=== PATIENT | female | born 1965 | race Caucasian/White ===

== ENCOUNTER 2020-03-14 04:42 | Emergency (ER) | payer MEDICARE, MEDICAID, SELFPAY ==
[2020-03-14 04:55] VITALS: BP 117/61; PULSE 75; RESP 18; TEMP 36.6; O2SAT 97
--- NOTE | 2020-03-14 05:04 | ED.SKABFB ---
HPI - Skin/Abscess/Foreign Bdy General Chief complaint: Skin/Abscess/Foreign Body Stated complaint: RASH Source: patient Mode of arrival: ambulatory Limitations: no limitations History of Present Illness HPI narrative: This is a 54-year-old female who presents with generalized rash with itching that started few hours ago has been taking new prescription antibiotic Bactrim for abscess. Symptoms started with a rash and itching there is no shortness of breath, no fever chills no nausea vomiting or abdominal pain. Patient has tried azyu-kgo-tcdeaji creams with minimal relief. MD complaint: rash Onset (ago): hour(s) Location: generalized Severity: moderate Quality: pruritic Pain Consistency: constant Relieving factors: none Exacerbating factors: none Context: new medication Associated symptoms: denies other symptoms Treatments prior to arrival: OTC topical medication Related Data Home Medications Medication Instructions Recorded Confirmed albuterol sulfate 2 puff INHALATION PRN PRN 03/14/20 03/14/20 amlodipine 5 mg PO DAILY 03/14/20 03/14/20 [id number]-eusp 1 tablet PO PRN PRN 03/14/20 03/14/20 escitalopram oxalate 20 mg PO DAILY 03/14/20 03/14/20 lisinopril 40 mg PO DAILY 03/14/20 03/14/20 Allergies Allergy/AdvReac Type Severity Reaction Status Date / Time amoxicillin Allergy Unknown Unknown Verified 03/14/20 04:54 tetracycline Allergy Unknown Unknown Verified 03/14/20 04:54 sulfamethoxazole Allergy Rash Verified 03/14/20 04:53 [From Bactrim] trimethoprim [From Bactrim] Allergy Rash Verified 03/14/20 04:53 Review of Systems Review of Systems: All systems reviewed & are unremarkable except as noted in HPI and below PMFSH Past Medical History Medical History Depression Exam Const: General: no acute distress and alert Orientation/consciousness: patient oriented x3 HENMT: Head: normal to inspection Eyes: Conjunctivae: conjunctivae normal Pupils: Equal, round and reactive pupils present EOM: EOMs intact bilaterally Neck: Neck: normal visual inspection, no lymphadenopathy and no meningeal signs Chest: Chest palpation & inspection: normal inspection of the chest Resp: Effort & Inspection: normal respiratory effort Auscultation: clear to auscultation bilaterally Cardio: Rate: regular rate Rhythm: regular rhythm : General: Yes no CVA tenderness Back/Spine/Pelvis: Back: no CVA tenderness Skin: Other: generalized pruritic rash Neuro: General: patient oriented x3 and moves all extremities Extrem: General: normal to inspection Psych: Mental Status: mental status grossly normal Thought content: Yes Normal thought content present Course Course Emergency Course: patient given IM Depo-Medrol and p.o. Benadryl with some moderate relief of her itching. Vital Signs Vital signs: Vital Signs Temperature 36.6 C 03/14/20 04:55 Pulse Rate 75 03/14/20 04:55 Respiratory Rate 18 03/14/20 04:55 Blood Pressure 117/61 03/14/20 04:55 Pulse Oximetry 97 03/14/20 04:55 Temperature 36.6 C 03/14/20 04:55 Pulse Rate 75 03/14/20 04:55 Respiratory Rate 18 03/14/20 04:55 Blood Pressure 117/61 03/14/20 04:55 Pulse Oximetry 97 03/14/20 04:55 Critical Care Time Critical Care Time Critical Care Time: No Discharge Plan Discharge Clinical Impression: Allergic reaction to drug Patient Disposition: Home, Self-Care Condition: Stable Instructions: Antibiotic Form, Antibiotic Medication Allergy (ED) Additional Instructions: advised patient to discontinue Bactrim, take Benadryl [id number], and take medicine as prescribed. Follow-up with primary care physician if symptoms persist or worsen. Inform primary care physician of new allergy to Bactrim. Prescriptions: New methylprednisolone [Medrol ([place])] 4 mg tablets,dose pack See Rx Instructions .ROUTE .COMPLEX Qty: 21 RF: 0 famot
[2020-03-14] MEDS: diphenhydrAMINE HCl CAP 25 MG CAPSULE PO (05:08)
[2020-03-14] MEDS: methylPREDNISolone ACETATE 40 MG/ML VIAL 80 MG IM (05:10)
[2020-03-14 05:13] VITALS: BP 128/75; PULSE 80; RESP 18; TEMP 36.6; O2SAT 97
== END 2020-03-14 05:18 | disposition home or self-care (01) ==
PROVIDERS: Emergency Provider Emergency Medicine; PCP Physician Assistant
DX: R21 Rash and other nonspecific skin eruption (principal); T50.905A Adverse effect of unspecified drugs, medicaments and biological substances, initial encounter
CPT/HCPCS: 96372; 99283; A9270; J1030

== ENCOUNTER 2022-02-23 10:03 | Outpatient (CLI) | payer MEDICARE, MEDICAID, SELFPAY ==
[2022-02-23 10:32] LABS: Hematocrit 39.9 % (35.0-49.0); Hemoglobin 12.5 g/dL (12.0-15.0); Mean Corpuscular HGB Conc 31.3 g/dL (32.0-36.0); Mean Corpuscular Hemoglobin 28.1 pg (27.0-31.0); Mean Corpuscular Volume 89.7 fL (78.0-102.0); Mean Platelet Volume 9.4 fl (9.2-11.8); Platelet Count Result 259 K/mm3 (150-420); Red Blood Count 4.45 M/mm3 (4.20-5.40); Red Cell Distribution Width 13.3 % (11.6-14.4); White Blood Count 6.6 K/mm3 (4.8-10.8)
[2022-02-23 10:50] LABS: Hemoglobin A1C 7.2 % (<5.7)
[2022-02-23 10:51] LABS: Alanine Aminotransferase 49 U/L (14-59); Albumin Level 3.2 g/dL (3.4-5.0); Alkaline Phosphatase 233 U/L (46-116); Anion Gap 8 mmol/L (8-16); Aspartate Amino Transferase 82 U/L (15-37); Bilirubin,Total 0.6 mg/dL (0.00-1.00); Blood Urea Nitrogen 19 mg/dL (7-18); Calcium 8.6 mg/dL (8.5-10.1); Carbon Dioxide 29 mmol/L (21-32); Chloride 103 mmol/L (98-108); Cholesterol 212 mg/dL (0-200); Estimated Glomerular Filt Rate > 60; Glucose 146 mg/dL (70-99); HDL Direct 74 mg/dL (40-60); LDL Cholesterol Calculated 123 mg/dL (<130); Osmolality Calculated 295 mOsm/kg (285-295); Potassium 3.6 mmol/L (3.5-5.1); Sodium 140 mmol/L (136-145); Total Protein 6.9 g/dL (6.4-8.2); Triglycerides 77 mg/dL (0-150)
== END 2022-02-23 10:04 | disposition home or self-care (01) ==
LOC: CHSLAB 10:14
PROVIDERS: PCP Physician Assistant; Visit Provider Physician Assistant
DX: E11.9 Type 2 diabetes mellitus without complications (principal); I10 Essential (primary) hypertension; Z00.00 Encounter for general adult medical examination without abnormal findings
CPT/HCPCS: 36415; 80053; 80061; 83036; 85027

== ENCOUNTER 2022-04-05 16:25 | Emergency (ER) | payer MEDICARE, MEDICAID, SELFPAY ==
--- NOTE | ~2022-04-05 | XR_ITS ---
EXAMINATION: XR chest 2V DATE: 04/05/2022 17:46 INDICATION: Cough and wheeze TECHNIQUE: frontal and lateral views of the chest were obtained. COMPARISON: None FINDINGS: The lungs are clear with no focal airspace opacities, pulmonary edema, pleural effusion or pneumothor ax. The cardiomediastinal silhouette is normal. Mild anterior wedging at T11 and T12. IMPRESSION: 1. No acute cardiopulmonary disease. Reviewed, dictated and finalized at location A.
[2022-04-05 16:25] VITALS: BP 169/78; PULSE 89; RESP 24; TEMP 37.2; O2SAT 96
[2022-04-05 16:35] VITALS: BP 169/78; PULSE 89; RESP 22; TEMP 37.2; O2SAT 97
[2022-04-05 17:05] VITALS: PULSE 85; RESP 16; O2SAT 95
[2022-04-05] MEDS: ALBUTEROL SULFATE NEB 2.5 MG/3 ML INH INHALATION (17:05)
--- NOTE | 2022-04-05 17:05 | ED.GENADULT ---
HPI - General Adult General Chief complaint: Upper Respiratory Infection Stated complaint: cold chills, body aches Time Seen by Provider: 04/05/22 16:40 Source: patient Mode of arrival: ambulatory Limitations: no limitations History of Present Illness HPI narrative: patient is a 56-year-old obese white female asthmatic complain of cough associated with chills and then feeling warm, and and fatigue. User albuterol inhaler twice today. She is vaccinated for COVID is never had COVID complains of mild shortness of breath been constant. denies any chest pain. She has had runny nose nasal congestion in her ears feel full today. Pain Consistency: constant Related Data Home Medications Medication Instructions Recorded Confirmed albuterol sulfate 90 mcg/actuation 2 puff inhalation PRN PRN 03/14/20 04/05/22 aerosol inhaler Shortness Of Breath Or Wheezing amlodipine 5 mg tablet 5 mg PO DAILY 03/14/20 04/05/22 [id number]-wtmcneaonfcym-rybpwsst 1 tablet PO PRN PRN Headache 03/14/20 04/05/22 50 mg-325 mg-40 mg tablet escitalopram oxalate 20 mg tablet 20 mg PO DAILY 03/14/20 04/05/22 lisinopril 40 mg tablet 40 mg PO DAILY 03/14/20 04/05/22 Allergies Allergy/AdvReac Type Severity Reaction Status Date / Time amoxicillin Allergy Unknown Unknown Verified 04/05/22 16:44 tetracycline Allergy Unknown Unknown Verified 04/05/22 16:44 sulfamethoxazole Allergy Rash Verified 04/05/22 16:44 [From Bactrim] trimethoprim [From Bactrim] Allergy Rash Verified 04/05/22 16:44 Review of Systems Review of Systems: All systems reviewed & are unremarkable except as noted in HPI and below Constitutional: Constitutional: Reports as per HPI, Reports chills, Reports fatigue, Reports fever(s) and Denies weakness Eyes: Eyes: Reports as per HPI ENT: Reports system reviewed and no additional complaints, except as documented and Reports as per HPI Cardiovascular: Cardiovascular: Reports as per HPI and Reports no additional cardiovascular complaints Respiratory: Respiratory: Reports as per HPI and Reports wheezing Gastrointestinal: Gastrointestinal: Reports as per HPI Genitourinary: Genitourinary: Reports no additional female genitourinary complaints and Reports nocturia ( She has urinary incontinence and wears depends) Musculoskeletal: Musculoskeletal: Reports no additional musculoskeletal complaints, Reports myalgias and Denies arthralgias Integumentary/Breasts: Skin/Breast: Reports erythema Comments: has a right redness and warmth of her right calf which is nontender. Neurologic: Reports system reviewed and no additional complaints, except as documented Psychiatric: Psychiatric: Reports no additional psychiatric complaints [facility] Past Medical History Medical History (Updated 04/05/22 @ 17:14 by Luc Hudson MD) Asthma Depression Surgical History Surgical History (Updated 04/05/22 @ 17:05 by Luc Hudson MD) Gastric bypass status for obesity Exam Narrative: Patient is a morbidly obese white female she appears in no apparent distress head is atraumatic normocephalic eyes conjunctivae are pink sclera nonicteric ears TMs are normal oropharynx is clear with moist mucous membranes neck is supple without lymphadenopathy lungs show bronchial breath sounds with good air exchange heart is regular rate rhythm without murmurs gallops rubs chest wall is nontender of the abdomen morbidly obese soft and nontender no hepatosplenomegaly or masses she is wearing a depends. Extremities no cyanosis clubbing or edema she has area of erythema right calf which is nontender somewhat warm to touch. Neurological she is alert and oriented x4 motor and sensory grossly intact. Course Course Emergency Course: Patient was given albuterol nebulizer treatment. Instructed on proper albuterol inhaler use and was given a spacer with instructions by morgue technician. She is given prednisone 60 mg p.o. chest x-ray was done. COVID screen
[2022-04-05 17:13] LABS: Hematocrit 36.8 % (35.0-49.0); Hemoglobin 11.9 g/dL (12.0-15.0); Mean Corpuscular HGB Conc 32.3 g/dL (32.0-36.0); Mean Corpuscular Hemoglobin 28.5 pg (27.0-31.0); Mean Corpuscular Volume 88.2 fL (78.0-102.0); Mean Platelet Volume 9.5 fl (9.2-11.8); Platelet Count Result 179 K/mm3 (150-420); Red Blood Count 4.17 M/mm3 (4.20-5.40); Red Cell Distribution Width 13.2 % (11.6-14.4); White Blood Count 11.7 K/mm3 (4.8-10.8)
[2022-04-05] MEDS: predniSONE 20 MG TABLET 60 MG PO (17:18)
[2022-04-05 17:20] VITALS: BP 145/68; PULSE 77; PULSE 84; RESP 16; RESP 18; TEMP 37.1; O2SAT 99
[2022-04-05 17:29] LABS: Alanine Aminotransferase 11 U/L (14-59); Alkaline Phosphatase 149 U/L (46-116); Anion Gap 8 mmol/L (8-16); Aspartate Amino Transferase 17 U/L (15-37); Bilirubin,Total 0.8 mg/dL (0.00-1.00); Blood Urea Nitrogen 11 mg/dL (7-18); Calcium 8.4 mg/dL (8.5-10.1); Carbon Dioxide 29 mmol/L (21-32); Chloride 100 mmol/L (98-108); Estimated CRCL calculation 106 ml/min; Estimated Glomerular Filt Rate > 60; Glucose 165 mg/dL (70-99); Osmolality Calculated 287 mOsm/kg (285-295); Potassium 3.2 mmol/L (3.5-5.1); Sodium 137 mmol/L (136-145); Total Protein 6.6 g/dL (6.4-8.2)
[2022-04-05 17:51] LABS: Influenza A QL RT-PCR Negative (Negative); Influenza B QL RT-PCR Negative (Negative); SARS-CoV-2 RNA PCR Negative (Negative)
[2022-04-05 18:12] VITALS: BP 142/78; PULSE 88; RESP 18; TEMP 37.1; O2SAT 98
[2022-04-05 18:16] VITALS: BP 152/69; PULSE 91; RESP 20; TEMP 36.7; O2SAT 96
--- NOTE | 2022-04-11 12:40 | PC.NURSE ---
blood culture x2 reports final of no growth x 5 days
== END 2022-04-05 18:14 | disposition home or self-care (01) ==
PROVIDERS: Emergency Provider Emergency Medicine
DX: J45.901 Unspecified asthma with (acute) exacerbation (principal); Z20.822 Contact with and (suspected) exposure to COVID-19
CPT/HCPCS: 36415; 71046; 80053; 85027; 85380; 87040; 87502; 94640; 99283; C9803; J7512; U0003; U0005

== ENCOUNTER 2022-04-12 08:59 | Outpatient (CLI) | payer MEDICARE, MEDICAID, SELFPAY ==
[2022-04-12 11:01] LABS: Hemoglobin A1C 7.5 % (<5.7)
== END 2022-04-12 09:00 | disposition home or self-care (01) ==
LOC: CHSLAB 09:02
PROVIDERS: PCP Physician Assistant; Visit Provider Physician Assistant
DX: E11.9 Type 2 diabetes mellitus without complications (principal); Z00.00 Encounter for general adult medical examination without abnormal findings
CPT/HCPCS: 36415; 83036

== ENCOUNTER 2022-11-30 08:41 | Outpatient (CLI) | payer MEDICARE, MEDICAID, SELFPAY ==
[2022-11-30 08:58] LABS: Hematocrit 38.5 % (35.0-49.0); Hemoglobin 12.1 g/dL (12.0-15.0); Mean Corpuscular HGB Conc 31.4 g/dL (32.0-36.0); Mean Corpuscular Hemoglobin 29.6 pg (27.0-31.0); Mean Corpuscular Volume 94.1 fL (78.0-102.0); Mean Platelet Volume 9.7 fl (9.2-11.8); Platelet Count Result 274 K/mm3 (150-420); Red Blood Count 4.09 M/mm3 (4.20-5.40); Red Cell Distribution Width 12.4 % (11.6-14.4)
[2022-11-30 09:29] LABS: Alanine Aminotransferase 15 U/L (14-59); Albumin Level 3.4 g/dL (3.4-5.0); Alkaline Phosphatase 145 U/L (46-116); Anion Gap 8 mmol/L (8-16); Aspartate Amino Transferase 17 U/L (15-37); Bilirubin,Total 0.4 mg/dL (0.00-1.00); Blood Urea Nitrogen 41 mg/dL (7-18); Calcium 8.5 mg/dL (8.5-10.1); Carbon Dioxide 25 mmol/L (21-32); Chloride 105 mmol/L (98-108); Cholesterol 206 mg/dL (0-200); Estimated Glomerular Filt Rate 46; Glucose 157 mg/dL (70-99); HDL Direct 62 mg/dL (40-60); LDL Cholesterol Calculated 122 mg/dL (<130); Osmolality Calculated 299 mOsm/kg (285-295); Potassium 3.8 mmol/L (3.5-5.1); Sodium 138 mmol/L (136-145); Total Protein 6.9 g/dL (6.4-8.2); Triglycerides 112 mg/dL (0-150)
== END 2022-11-30 08:42 | disposition home or self-care (01) ==
LOC: CHSLAB 08:43
PROVIDERS: PCP Physician Assistant; Visit Provider Physician Assistant
DX: E11.9 Type 2 diabetes mellitus without complications (principal)
CPT/HCPCS: 36415; 80053; 80061; 85027

== ENCOUNTER 2022-12-22 17:25 | Outpatient (CLI) | payer MEDICARE, MEDICAID, SELFPAY ==
--- NOTE | ~2022-12-22 | XR_ITS ---
XR shoulder LT min 2V 12/22/2022 17:50 Indication: Left shoulder pain Procedure: 4 views left shoulder Comparison: No prior studies for comparison. Findings: No fracture, subluxation or dislocation. No significant soft tissue abnormality. No foreign bodies. Impression: 1: No significant bone or joint abnormality. Reviewed, dictated and finalized at location A. Impression: 1: No significant bone or joint abnormality.
== END 2022-12-22 17:26 | disposition home or self-care (01) ==
PROVIDERS: PCP Physician Assistant; Visit Provider Physician Assistant
DX: M25.512 Pain in left shoulder (principal)
CPT/HCPCS: 73030

== ENCOUNTER 2023-02-13 11:46 | Emergency (ER) | payer MEDICARE, MEDICAID, SELFPAY ==
--- NOTE | ~2023-02-13 | CT_ITS ---
EXAMINATION: CT humerus LT wo con DATE: 02/13/2023 13:31 INDICATION: Left upper arm pain worse with movement. TECHNIQUE: High resolution computed tomography (CT) of the left upper arm was performed without intra venous contrast. Additional sagittal and coronal reconstructions were performed. Automated exposure c ontrol and iterative reconstruction technique were employed. The dose-length product was 965.67 mGy-c m. COMPARISON: Left shoulder radiographs dated 12/22/2022 FINDINGS: Bone alignment is normal. No fracture. Mild osteoarthritis at the left elbow and acromioclavicular pepe ints. Glenohumeral joint space appears normal. No glenohumeral or elbow joint effusions. Portions of the skin and subcutaneous fat along the lateral and posterolateral left upper arm are excluded from t he [id number] due to patient body habitus. The musculature of the left upper arm and visualized fo rearm appears normal. No inflammatory stranding, abnormal masses or fluid collections identified. No pathologically enlarged left cervical, supraclavicular, subpectoral or axillary lymphadenopathy. No l ymphadenopathy in the visualized left hilum or mediastinum. There are numerous <4 mm pulmonary nodule s in the visualized left lung. Postoperative change of prior gastric bypass procedure. IMPRESSION: 1. Mild left elbow and acromioclavicular osteoarthritis. No joint effusions or acute osseous abnormal ity. 2. Numerous <4 mm pulmonary nodules in the visualized left lung most likely sequela of granulomatous disease although differential would include early metastatic disease in the setting of prior malignan cy. Could consider further evaluation with dedicated low-dose noncontrast chest CT. Reviewed, dictated and finalized at location L. IMPRESSION: 1. Mild left elbow and acromioclavicular osteoarthritis. No joint effusions or acute osseous abnormality. 2. Numerous <4 mm pulmonary nodules in the visualized left lung most likely seq uela of granulomatous disease although differential would include early metasta tic disease in the setting of prior malignancy. Could consider further evaluati on with dedicated low-dose noncontrast chest CT.
[2023-02-13 11:55] VITALS: BP 141/68; PULSE 86; RESP 18; TEMP 36.6; O2SAT 98
--- NOTE | 2023-02-13 13:01 | ED.EXTPRO ---
HPI - Extremity Problem General Chief complaint: Extremity Problem,Nontraumatic Stated complaint: L arm pain/muscle Source: patient Mode of arrival: ambulatory Limitations: no limitations History of Present Illness HPI Narrative: patient is a 57-year-old female with left elbow and right above the elbow pain for the past month. She remembers reaching back in the car a month ago and causing a pain at that time which has gotten worse in the past week or so. MD Complaint: extremity pain Onset (ago): month(s) Pain Consistency: constant Location: left Severity scale (1-10): 6 Quality: aching and sharp Radiation: proximal Relieving factors: immobilization Exacerbating factors: weight bearing and palpation Associated symptoms: denies other symptoms Related Data Home Medications Medication Instructions Recorded Confirmed albuterol sulfate 90 mcg/actuation 2 puff inhalation PRN PRN 03/14/20 04/05/22 aerosol inhaler Shortness Of Breath Or Wheezing amlodipine 5 mg tablet 5 mg PO DAILY 03/14/20 04/05/22 [id number]-qmynpnqwmnivk-eunyjlsp 1 tablet PO PRN PRN Headache 03/14/20 04/05/22 50 mg-325 mg-40 mg tablet escitalopram oxalate 20 mg tablet 20 mg PO DAILY 03/14/20 04/05/22 lisinopril 40 mg tablet 40 mg PO DAILY 03/14/20 04/05/22 Allergies Allergy/AdvReac Type Severity Reaction Status Date / Time amoxicillin Allergy Unknown Unknown Verified 02/13/23 13:45 tetracycline Allergy Unknown Unknown Verified 02/13/23 13:45 sulfamethoxazole Allergy Rash Verified 02/13/23 13:45 [From Bactrim] trimethoprim [From Bactrim] Allergy Rash Verified 02/13/23 13:45 Review of Systems Review of Systems: All systems reviewed & are unremarkable except as noted in HPI and below Constitutional: Constitutional: Reports no additional constitutional complaints Eyes: Eyes: Reports no additional eye complaints ENT: Reports system reviewed and no additional complaints, except as documented Cardiovascular: Cardiovascular: Reports no additional cardiovascular complaints Respiratory: Respiratory: Reports no additional respiratory complaints Gastrointestinal: Gastrointestinal: Reports no additional gastrointestinal complaints Genitourinary: Genitourinary: Reports no additional female genitourinary complaints Musculoskeletal: Musculoskeletal: Reports no additional musculoskeletal complaints Integumentary/Breasts: Skin/Breast: Reports system reviewed and no additional complaints, except as docu Neurologic: Reports system reviewed and no additional complaints, except as documented Psychiatric: Psychiatric: Reports no additional psychiatric complaints Endocrine: Endocrine: Reports no additional endocrine complaints Hematologic/Lymphatic: Hematologic/Lymphatic: Reports no additional hematologic/lymphatic complaints Allergic/Immunologic: Allergic/Immunologic: Reports no additional allergic/immunologic complaints PMFSH Past Medical History Medical History Asthma Depression Surgical History Surgical History Gastric bypass status for obesity Exam Const: General: healthy appearing Nutritional Appearance: well nourished HENMT: Head: normal to inspection Ears: external ears normal Eyes: Conjunctivae: conjunctivae normal Pupils: Equal, round and reactive pupils present Neck: Neck: normal visual inspection Chest: Chest palpation & inspection: normal inspection of the chest Resp: Effort & Inspection: normal respiratory effort Auscultation: clear to auscultation bilaterally Cardio: Rate: regular rate Rhythm: regular rhythm GI: Inspection: non-distended GI Palp: Yes Soft to palpation and No Tenderness to palpation present (GI) Auscultation: normal bowel sounds : General: Yes bladder normal to palpation Back/Spine/Pelvis: Back: no CVA tenderness Skin: General skin exam: normal color Rashes: no rashes Wounds:
[2023-02-13] MEDS: HYDROcodone/acetaminophen (*CRX) 5-325 MG TABLET 1 TAB PO (13:14)
--- NOTE | 2023-02-13 13:16 | PC.NURSE ---
pt medicated for pain at this time, taken to imaging.
[2023-02-13 14:13] VITALS: BP 124/66; PULSE 65; RESP 16; TEMP 37.3; O2SAT 97
== END 2023-02-13 14:17 | disposition home or self-care (01) ==
PROVIDERS: Emergency Provider Emergency Medicine; PCP Physician Assistant
DX: S40.022A Contusion of left upper arm, initial encounter (principal); S53.402A Unspecified sprain of left elbow, initial encounter; X50.0XXA Overexertion from strenuous movement or load, initial encounter
CPT/HCPCS: 73200; 99284; A9270

== ENCOUNTER 2023-02-26 14:02 | Outpatient (RCR) | payer MEDICARE, MEDICAID, SELFPAY ==
--- NOTE | 2023-02-26 11:49 | PTOPEVAL1 ---
Assessment and note entered by Suresh Mao Evaluation Information Assessment Status Evaluation Diagnosis left triceps strain Onset 01/11/23 Subjective Information Pt. reports she went to reach in the backseat and noticed immediate pain in the left arm. She is right hand dominant. She reports that her pain in the left arm pain is constant. She describes pain at rest, as well as with reaching overhead and behind her back. She reports that she has been taking ibuprofen and tylenol for pain. Pt. reports that her pain has worsened over the past 6 weeks. Pt. reports that she loves to mow her lawn, but cannot due to pain in the left shoulder. She states that she had a recent heart cath and she is on a 10# weight restriction. She reports that her pain will wake her at night frequently. She reports that her goal for therapy is to decrease her left shoulder pain. Reported Pain Level Pain Score 7: Self Report Assessment PT Clinical Summary Pt. is a 57 year old female who enters the clinic with left shoulder pain. She presents with impaired strength, impaired ROM and pain consistent with rotator cuff syndrome. Continued skilled PT is indicated in order to improve these areas to assist with improved IADL performance and improved comfort. Plan of Care Interventions Electrical Stimulation,Hot Pack/Cold Pack,Manual Therapy,Neuro Re-education,Patient/Caregiver Educati,Therapeutic Activities,Therapeutic Exercise PT Services Indicated Yes Treatment Frequency and 3x/week x 6 visits Duration These treatments will address the objective and functional deficits as defined above. The patient will be advanced safely and appropriately in order for the patient to progress towards his/her prior level of function. Additional exercises will be introduced and as well as a comprehensive home exercise program upon discharge, if needed, ?to ensure carryover of functional gains achieved in the clinic. This treatment plan has been reviewed and agreement upon by the patient.
--- NOTE | 2023-02-26 11:50 | OPREHPOC ---
Outpatient Therapy Plan of Care This is a Multidisciplinary Plan of Care that may contain components documented by all disciplines (PT, OT, and ST.) PT Problem 1 PT Problem #1 Knowledge Deficit PT Goal 1 Goal Independent with a HEP addressing strength and mobility mandaen. Target Visit 2 PT Problem 2 PT Problem #2 Pain PT Goal 1 Goal reduce pain to 3/10 at worst at the left shoulder with all overhead activities. Target Visit 6 PT Problem 3 PT Problem #3 Impaired Range of Motion PT Goal 1 Goal -Pt. will present with 150 degrees active left shoulder flexion -Pt. will present with 90 degrees active left shoulder ER to assist with ease of grooming Target Visit 6 PT Problem 4 PT Problem #4 Impaired Strength PT Goal 1 Goal Pt. will present with 4+/5 gross proximal left shoulder strength. Target Visit 6
--- NOTE | 2023-03-09 14:33 | OPREHPOC ---
Outpatient Therapy Plan of Care This is a Multidisciplinary Plan of Care that may contain components documented by all disciplines (PT, OT, and ST.) PT Problem 1 PT Problem #1 Knowledge Deficit PT Goal 1 Goal Independent with a HEP addressing strength and mobility restorationist. Target Visit 2 Progress Met PT Problem 2 PT Problem #2 Pain PT Goal 1 Goal reduce pain to 3/10 at worst at the left shoulder with all overhead activities. Target Visit 6 Progress Not Met Comment goal not met PT Problem 3 PT Problem #3 Impaired Range of Motion PT Goal 1 Goal -Pt. will present with 150 degrees active left shoulder flexion -Pt. will present with 90 degrees active left shoulder ER to assist with ease of grooming Target Visit 6 Progress Not Met Comment goals not met PT Problem 4 PT Problem #4 Impaired Strength PT Goal 1 Goal Pt. will present with 4+/5 gross proximal left shoulder strength. Target Visit 6 Progress Not Met Comment goal not met
--- NOTE | 2023-03-09 14:33 | PTOPREEVAL ---
Assessment and note entered by JT File, PT Evaluation Information Assessment Status Re-evaluation Diagnosis left triceps strain Onset 01/11/23 Subjective Information Patient reports continued pain in the L shoulder this date. Patient notes that pain in the L shoulder has not improved since starting physical therapy. She states that she is still having difficulty with range of motion in the shoulder, and has not noticed any difference in this over the past few weeks. She reports she has been consistently performing HEP at home. Reported Pain Level Pain Score 6: Self Report Pain Score 5: Self Report Assessment PT Clinical Summary Mrs. Woodward has attended 6 sessions of skilled PT to address left triceps strain and possible rotator cuff involvement. She continues to demonstrate limited L shoulder ROM and strength, showing similar or more limited measurements compared to initial assessment. Patient's PCP contacted to discuss possibility of soft tissue imaging via MRI to further invesitgate cause of pain and UE limitations. Patient agreeable to hold PT until receiving imaging, while performing HEP independently. Plan of Care Interventions Electrical Stimulation,Hot Pack/Cold Pack,Manual Therapy,Neuro Re-education,Patient/Caregiver Educati,Therapeutic Activities,Therapeutic Exercise PT Services Indicated Yes Treatment Frequency and hold PT to follow up with MD Duration suggest patient have MRI of the L shoulder. These treatments will address the objective and functional deficits as defined above. The patient will be advanced safely and appropriately in order for the patient to progress towards his/her prior level of function. Additional exercises will be introduced and as well as a comprehensive home exercise program upon discharge, if needed, ?to ensure carryover of functional gains achieved in the clinic. This treatment plan has been reviewed and agreement upon by the patient.
== END 2023-03-09 13:28 | disposition home or self-care (01) ==
LOC: CHSPT 14:02
PROVIDERS: Visit Provider Physician Assistant
DX: S46.312A Strain of muscle, fascia and tendon of triceps, left arm, initial encounter (principal)
CPT/HCPCS: 97014; 97110; 97140; 97161; G0283

== ENCOUNTER 2023-03-10 08:09 | Outpatient (CLI) | payer MEDICARE, MEDICAID, SELFPAY ==
--- NOTE | ~2023-03-10 | MR_ITS ---
MRI of the left shoulder Technique: Axial proton-density fat-sat images, coronal proton density fat-sat and T2 fat-sat images, and sagittal T1-weighted and T2 fat-sat images were acquired. Clinical History: Pain Findings: There is mild AC joint degenerative change with small subacromial spur present. Coracoclavi cular, coracoacromial, and coracohumeral ligaments are probably intact. Supraspinatus and infraspinatus tendons are intact, without definite partial or full-thickness tear. There is mild tendinosis. Subscapularis tendon is intact. Tendon of the long head of the biceps is in tact. There is questionable superior labral tear. Inferior glenohumeral ligament is intact. No significant degenerative change or effusion of the gleno humeral joint. No fluid distention of the subacromial/subdeltoid bursa. No muscle atrophy or edema. Impression: Mild rotator cuff tendinosis. Questionable superior labral tear. Mild AC joint degenerative change. Reviewed, dictated and finalized at [facility]. Impression: Mild rotator cuff tendinosis. Questionable superior labral tear. Mild AC joint degenerative change.
== END 2023-03-10 08:10 | disposition home or self-care (01) ==
LOC: CHSIMG 08:11
PROVIDERS: PCP Physician Assistant; Visit Provider Physician Assistant
DX: M25.512 Pain in left shoulder (principal); M77.8 Other enthesopathies, not elsewhere classified
CPT/HCPCS: 73221

== ENCOUNTER 2023-04-13 13:25 | Emergency (ER) | payer MEDICARE, MEDICAID, SELFPAY ==
--- NOTE | ~2023-04-13 | US_ITS ---
EXAMINATION: US venous doppler LE RT DATE: 04/13/2023 14:35 INDICATION: Right lower limb pain TECHNIQUE: Hwang scale images without and with compression and Doppler images of the right lower extre mity veins were obtained. COMPARISON: None FINDINGS: The right common femoral vein, profunda femoral vein, femoral vein, popliteal vein, peronea l trunk, posterior tibial veins, and greater saphenous vein are patent. IMPRESSION: 1. Patent right lower extremity veins. No evidence of deep venous thrombosis. Reviewed, dictated and finalized at location A.
[2023-04-13 13:25] VITALS: BP 99/84; PULSE 74; RESP 20; TEMP 36.3; O2SAT 96
[2023-04-13 13:34] VITALS: BP 99/84; PULSE 74; RESP 20; TEMP 36.3; O2SAT 96
--- NOTE | 2023-04-13 13:38 | ED.SKABFB ---
HPI - Skin/Abscess/Foreign Bdy General Chief complaint: Skin/Abscess/Foreign Body Stated complaint: right leg pain and redness Time Seen by Provider: 04/13/23 13:31 Source: patient and family Mode of arrival: ambulatory Limitations: no limitations History of Present Illness HPI narrative: patient is a 57-year-old female with a right lower extremity redness occurring over the past 24 hours. She has been having hot and cold episodes as well during these 24 hour timeline. MD complaint: rash Onset (ago): day(s) (1) Tetanus up to date: unsure Location: [facility] Severity: moderate Severity scale (1-10): 5 Quality: aching Pain Consistency: constant Relieving factors: none Exacerbating factors: none Context: none Associated symptoms: fever and chills Treatments prior to arrival: none Related Data Home Medications Medication Instructions Recorded Confirmed albuterol sulfate 90 mcg/actuation 2 puff inhalation PRN PRN 03/14/20 04/13/23 aerosol inhaler Shortness Of Breath Or Wheezing amlodipine 5 mg tablet 5 mg PO DAILY 03/14/20 04/13/23 qtqezqwovk-wpqbmvksbatzc-nhaqptbn 1 tablet PO PRN PRN Headache 03/14/20 04/13/23 50 mg-325 mg-40 mg tablet escitalopram oxalate 20 mg tablet 20 mg PO DAILY 03/14/20 04/13/23 lisinopril 40 mg tablet 40 mg PO DAILY 03/14/20 04/13/23 Allergies Allergy/AdvReac Type Severity Reaction Status Date / Time amoxicillin Allergy Unknown Unknown Verified 04/13/23 13:33 tetracycline Allergy Unknown Unknown Verified 04/13/23 13:33 sulfamethoxazole Allergy Rash Verified 04/13/23 13:33 [From Bactrim] trimethoprim [From Bactrim] Allergy Rash Verified 04/13/23 13:33 Review of Systems Review of Systems: All systems reviewed & are unremarkable except as noted in HPI and below Constitutional: Constitutional: Reports no additional constitutional complaints Eyes: Eyes: Reports no additional eye complaints ENT: Reports system reviewed and no additional complaints, except as documented Cardiovascular: Cardiovascular: Reports no additional cardiovascular complaints Respiratory: Respiratory: Reports no additional respiratory complaints Gastrointestinal: Gastrointestinal: Reports no additional gastrointestinal complaints Genitourinary: Genitourinary: Reports no additional female genitourinary complaints Musculoskeletal: Musculoskeletal: Reports no additional musculoskeletal complaints Integumentary/Breasts: Skin/Breast: Reports system reviewed and no additional complaints, except as docu Neurologic: Reports system reviewed and no additional complaints, except as documented Psychiatric: Psychiatric: Reports no additional psychiatric complaints Endocrine: Endocrine: Reports no additional endocrine complaints Hematologic/Lymphatic: Hematologic/Lymphatic: Reports no additional hematologic/lymphatic complaints Allergic/Immunologic: Allergic/Immunologic: Reports no additional allergic/immunologic complaints PMFSH Past Medical History Medical History Asthma Depression Surgical History Surgical History Gastric bypass status for obesity Exam Const: General: healthy appearing Nutritional Appearance: well nourished Orientation/consciousness: patient oriented x3 HENMT: Head: normal to inspection Ears: external ears normal Face/Nose/Sinus: Normal external nose present Eyes: Conjunctivae: conjunctivae normal Pupils: Equal, round and reactive pupils present EOM: EOMs intact bilaterally Neck: Neck: normal visual inspection Chest: Chest palpation & inspection: normal inspection of the chest Resp: Effort & Inspection: normal respiratory effort Auscultation: clear to auscultation bilaterally and no crackles Cardio: Rate: regular rate Rhythm: regular rhythm Heart sounds: no murmurs GI: Inspection: non-distended Auscultation: normal bowel sounds and bowel sounds present : Gene
[2023-04-13 14:09] LABS: Basophils Absolute Auto 0.02 K/mm3 (0.00-0.10); Basophils Percent Auto 0.2 % (0.0-1.0); Eosinophils Absolute Auto 0.05 K/mm3 (0.02-0.50); Eosinophils Percent Auto 0.4 % (1.0-6.0); Immature Granulocyte Absolute 0.06 K/mm3 (0.00-0.00); Immature Granulocyte Percent A 0.5 % (0.0-0.0); Lymphocytes Absolute Auto 1.56 K/mm3 (1.10-4.50); Lymphocytes Percent Auto 12.2 % (18.0-42.0); Mean Corpuscular HGB Conc 31.4 g/dL (32.0-36.0); Mean Corpuscular Volume 92.3 fL (78.0-102.0); Mean Platelet Volume 9.9 fl (9.2-11.8); Monocytes Absolute Auto 0.58 K/mm3 (0.10-0.90); Monocytes Percent Auto 4.5 % (2.0-11.0); Neutrophils Absolute Auto 10.6 K/mm3 (1.7-7.2); Neutrophils Percent Auto 82.2 % (50.0-70.0); Platelet Count Result 205 K/mm3 (150-420); Red Blood Count 3.79 M/mm3 (4.20-5.40); Red Cell Distribution Width 12.4 % (11.6-14.4); White Blood Count 12.8 K/mm3 (4.8-10.8)
[2023-04-13 14:26] LABS: INR 1.1; Partial Thromboplastin Time 31.9 SEC (23.90-30.70); Prothrombin Time 11.6 Seconds (9.50-12.10)
[2023-04-13 14:29] LABS: Alanine Aminotransferase 15 U/L (14-59); Albumin Level 2.7 g/dL (3.4-5.0); Alkaline Phosphatase 140 U/L (46-116); Anion Gap 9 mmol/L (8-16); Aspartate Amino Transferase 16 U/L (15-37); Bilirubin,Total 0.5 mg/dL (0.00-1.00); Blood Urea Nitrogen 22 mg/dL (7-18); Calcium 8.8 mg/dL (8.5-10.1); Carbon Dioxide 25 mmol/L (21-32); Chloride 103 mmol/L (98-108); Estimated Glomerular Filt Rate 52; Glucose 197 mg/dL (70-99); Osmolality Calculated 292 mOsm/kg (285-295); Potassium 3.6 mmol/L (3.5-5.1); Sodium 137 mmol/L (136-145); Total Protein 6.6 g/dL (6.4-8.2)
[2023-04-13] MEDS: levoFLOXacin TAB 500 MG, levoFLOXacin TAB 250 MG 750 MG PO (15:16)
--- NOTE | 2023-04-13 15:27 | PC.NURSE ---
PT ATE SANDWICH AND CHIPS, TOLERATED MEDICATION WITHOUT DIFFICULTY.
[2023-04-13 15:30] VITALS: BP 111/71; PULSE 72; RESP 18; TEMP 36.4; O2SAT 98
--- NOTE | 2023-04-19 13:37 | PC.NURSE ---
final blood cultures x2 reviewed. no growth after 5 days, no change in plan of care
== END 2023-04-13 15:30 | disposition home or self-care (01) ==
PROVIDERS: Emergency Provider Emergency Medicine; PCP Physician Assistant
DX: L03.115 Cellulitis of right lower limb (principal); J45.909 Unspecified asthma, uncomplicated; F32.A Depression, unspecified; Z98.84 Bariatric surgery status; Z79.51 Long term (current) use of inhaled steroids
CPT/HCPCS: 36415; 80053; 83605; 85025; 85380; 85610; 85730; 87040; 93971; 99284; A9270

== ENCOUNTER 2023-04-24 12:45 | Outpatient (RCR) | payer MEDICARE, MEDICAID, SELFPAY ==
--- NOTE | 2023-04-24 14:02 | OPREHPOC ---
Outpatient Therapy Plan of Care This is a Multidisciplinary Plan of Care that may contain components documented by all disciplines (PT, OT, and ST.) PT Problem 1 PT Problem #1 Knowledge Deficit PT Goal 1 Goal Patient to demonstrate independence with HEP Target Visit 6 PT Problem 2 PT Problem #2 Pain PT Goal 1 Goal Patient to report highest pain at 2/10 to return to house hold tasks at PLOF Target Visit 12 PT Problem 3 PT Problem #3 Impaired Range of Motion PT Goal 1 Goal Patient to demonstrate 160 deg of L shoulder flexion AROM to return to reaching into cabinets at PLOF Target Visit 12 PT Problem 4 PT Problem #4 Impaired Strength PT Goal 1 Goal Patient to demonstrate 4+/5 strength of the L shoulder to return to house hold tasks at PLOF Target Visit 12 PT Problem 5 PT Problem #5 Impaired Functional Mobil PT Goal 1 Goal 1. Patient to report ability to dress with no limitations 2. Patient to report ability to fix her hair with no increase in L shoulder pain Target Visit 12
--- NOTE | 2023-04-24 14:02 | PTOPEVAL1 ---
Assessment and note entered by Kristal Vale DPT Evaluation Information Assessment Status Evaluation Diagnosis L shoulder pain Onset 04/11/23 Subjective Information Patient reports she was told she has RTC tendonitis and frozen shoulder. She reports 2 weeks ago she had a steriod injection and has not noticed an improvement. She reports pain intially started about 3 months ago when she was reaching into the back seat of the car. Patient reports difficulty with dressing, fixing her hair, and completing house hold tasks. Prior patient had no shoulder pain. She returns to MD on 06/18/23. Reported Pain Level Pain Score 8: Self Report Assessment PT Clinical Summary Patient is a 57 year old female who presents to PT with L shoulder pain. Patient demonstrates decreaseed L shoulder ROM and strength as well as significant pain levels impairing her ability to dress, fix her hair, sleep and perform house hold tasks. She would benefit from skilled PT to address impairments and return to PLOF. Plan of Care Interventions Electrical Stimulation,Hot Pack/Cold Pack,Manual Therapy,Mechanical Traction,Neuro Re-education, Patient/Caregiver Educati,Therapeutic Activities, Therapeutic Exercise PT Services Indicated Yes Treatment Frequency and 2x weekly for 12 visits Duration These treatments will address the objective and functional deficits as defined above. The patient will be advanced safely and appropriately in order for the patient to progress towards his/her prior level of function. Additional exercises will be introduced and as well as a comprehensive home exercise program upon discharge, if needed, ?to ensure carryover of functional gains achieved in the clinic. This treatment plan has been reviewed and agreement upon by the patient.
--- NOTE | 2023-06-18 06:44 | PTOPEVAL1 ---
Assessment and note entered by Suresh Mao Evaluation Information Assessment Status Evaluation Diagnosis L shoulder pain Onset 04/11/23 Subjective Information Pt. reports that she notes a slight amount of improvement in regards to left shoulder pain. She does notices that she has signficant improvement in left shoulder mobility. Despite these improvements she continues to express frustration with continued pain. She reports that pain makes it difficult to reach overhead and she cannot lift anything of signficant weight with the left u.e. She reports that she will return to the doctor next week to discuss her continued pain. Assessment PT Clinical Summary Pt. has attended a total of 12 treatment sessions. In this time pt. has demonstrated improvements in both left u.e. ROM and strength. Despite these improvements she continues to be limited due to pain in the left shoulder. At this time we will hold treatment and await return to her doctor for further instruction regarding continued rehab . Plan of Care Interventions Electrical Stimulation,Hot Pack/Cold Pack,Manual Therapy,Neuro Re-education,Patient/Caregiver Educati,Therapeutic Activities,Therapeutic Exercise PT Services Indicated Yes Treatment Frequency and Hold treatment until after the patients visit with her M.D. on 06/18/23. Duration These treatments will address the objective and functional deficits as defined above. The patient will be advanced safely and appropriately in order for the patient to progress towards his/her prior level of function. Additional exercises will be introduced and as well as a comprehensive home exercise program upon discharge, if needed, ?to ensure carryover of functional gains achieved in the clinic. This treatment plan has been reviewed and agreement upon by the patient.
--- NOTE | 2023-10-11 14:40 | PCPTNOTE ---
patient has been on hold to follow up with MD and will be DC'd at this time
== END 2023-06-11 23:59 | disposition home or self-care (01) ==
LOC: CHSPT 12:45
PROVIDERS: Visit Provider Physician Assistant
DX: M75.02 Adhesive capsulitis of left shoulder (principal); S46.012D Strain of muscle(s) and tendon(s) of the rotator cuff of left shoulder, subsequent encounter
CPT/HCPCS: 97014; 97110; 97140; 97150; 97161; G0283

== ENCOUNTER 2023-12-07 09:00 | Observation (INO) | payer MEDICARE, MEDICAID, SELFPAY ==
[2023-12-07] VITALS (13 sets, daily range): BP systolic 102–134; BP diastolic 50–71; PULSE 66–84; RESP 15–22; TEMP 36.3–36.4; O2SAT 97–100; BMI 50.8
--- NOTE | ~2023-12-07 | XR_ITS ---
EXAMINATION: XR chest 2V DATE: 12/07/2023 09:18 INDICATION: Midsternal chest pain. TECHNIQUE: Frontal and lateral views of the chest were obtained. COMPARISON: Chest 2 views 04/05/2022 FINDINGS: There is no pneumonia, pleural effusion, or pneumothorax. The heart size is normal. There i s mild chronic anterior wedging of multiple vertebral bodies. IMPRESSION: 1. No acute cardiopulmonary disease. Reviewed, dictated and finalized at location A.
--- NOTE | 2023-12-07 09:04 | ECG_ITS ---
[address] Test Date: 2023-12-07 Pat Name: Jaenen Woodward Department: Room: Gender: F [employer] Talent: FAUSTO : 1965 Requested By: Sung Souza Order Number: [id number] Reading MD: Randy Segura D.O. Measurements Intervals [place] Rate: 76 P: 134 CA: 159 QRS: 49 QRSD: 107 T: 38 QT: 386 QTc: 434 Interpretive Statements SINUS RHYTHM DELAYED PRECORDIAL R/S TRANSITION BORDERLINE ST-T WAVE ABNORMALITY- DIFFUSE LEADS BASELINE ARTIFACT- I, II, III, AVR, AVL, AVF BORDERLINE ECG No previous ECG available for comparison Electronically Signed On 12-07-2023 09:32:53 CDT by Randy Segura D.O.
--- NOTE | 2023-12-07 09:06 | ED.CHESTPAIN ---
HPI - Chest Pain General Chief Complaint: Chest Pain Stated Complaint: chest pain Time Seen by Provider: 12/07/23 09:03 Source: patient Mode of arrival: ambulatory Limitations: no limitations History of Present Illness HPI narrative: Patient is a 58-year-old female with some right-sided chest pain that started 1 hour ago. Pain is reproducible to touching the chest. There is a strong correlation between movement and the chest pain. No shortness of breath. No nausea vomiting or diarrhea. Patient is on weight loss medication of Mounjoro. No coronary artery disease. She has hypertension and CVAs. MD complaint: chest pain Pertinent past history: other ( No CAD; hypertension and CVAs) Onset (ago): hour(s) (1) Timing of current episode: constant Prior episodes: No Onset: during rest Pain location: substernal and right chest Pain radiation: none Severity: moderate Pain scale (0-10): 6 Quality: tightness and sharp Relieving factors: movement Exacerbating factors: palpation and movement Context: other ( patient has trouble with her left shoulder at times and was doing some exercises in the past 2 days.) Associated symptoms: sense of impending doom ( Patient is very anxious) Treatment prior to arrival: none Risk Factors Coronary artery disease risk factors: hypertension Thoracic aortic dissection risk factors: none Related Data On Oral Contraceptives: No Home Medications Medication Instructions Recorded Confirmed albuterol sulfate 90 mcg/actuation 2 puff inhalation PRN PRN 03/14/20 12/07/23 aerosol inhaler Shortness Of Breath Or Wheezing amlodipine 5 mg tablet 5 mg PO DAILY 03/14/20 12/07/23 [id number]-efpotxjewfpzw-duucliew 1 tablet PO PRN PRN Headache 03/14/20 12/07/23 50 mg-325 mg-40 mg tablet escitalopram oxalate 20 mg tablet 20 mg PO DAILY 03/14/20 12/07/23 lisinopril 40 mg tablet 40 mg PO DAILY 03/14/20 12/07/23 Allergies Allergy/AdvReac Type Severity Reaction Status Date / Time amoxicillin Allergy Unknown Unknown Verified 04/13/23 13:33 tetracycline Allergy Unknown Unknown Verified 04/13/23 13:33 sulfamethoxazole Allergy Rash Verified 04/13/23 13:33 [From Bactrim] trimethoprim [From Bactrim] Allergy Rash Verified 04/13/23 13:33 Review of Systems Review of Systems: All systems reviewed & are unremarkable except as noted in HPI and below Constitutional: Constitutional: Reports no additional constitutional complaints Eyes: Eyes: Reports no additional eye complaints ENT: Reports system reviewed and no additional complaints, except as documented Cardiovascular: Cardiovascular: Reports no additional cardiovascular complaints Respiratory: Respiratory: Reports no additional respiratory complaints Gastrointestinal: Gastrointestinal: Reports no additional gastrointestinal complaints Genitourinary: Genitourinary: Reports no additional female genitourinary complaints Musculoskeletal: Musculoskeletal: Reports no additional musculoskeletal complaints Integumentary/Breasts: Skin/Breast: Reports system reviewed and no additional complaints, except as docu Neurologic: Reports system reviewed and no additional complaints, except as documented Psychiatric: Psychiatric: Reports no additional psychiatric complaints Endocrine: Endocrine: Reports no additional endocrine complaints Hematologic/Lymphatic: Hematologic/Lymphatic: Reports no additional hematologic/lymphatic complaints Allergic/Immunologic: Allergic/Immunologic: Reports no additional allergic/immunologic complaints PMFSH Past Medical History Medical History Asthma Depression Surgical History Surgical History Gastric bypass status for obesity Exam Const: General: healthy appearing Nutritional Appearance: well nourished Orientation/consciousness: patient oriented x3 Other: anxious HENMT: Head: normal to inspection
[2023-12-07 09:37] LABS: Basophils Absolute Auto 0.02 K/mm3 (0.00-0.10); Basophils Percent Auto 0.2 % (0.0-1.0); Eosinophils Absolute Auto 0.31 K/mm3 (0.02-0.50); Eosinophils Percent Auto 3.2 % (1.0-6.0); Hematocrit 35.2 % (35.0-49.0); Hemoglobin 11.2 g/dL (12.0-15.0); Immature Granulocyte Absolute 0.03 K/mm3 (0.00-0.00); Immature Granulocyte Percent A 0.3 % (0.0-0.0); Lymphocytes Absolute Auto 1.74 K/mm3 (1.10-4.50); Lymphocytes Percent Auto 17.9 % (18.0-42.0); Mean Corpuscular HGB Conc 31.8 g/dL (32-36); Mean Corpuscular Volume 91.2 fL (78.0-102.0); Mean Platelet Volume 10.2 fl (9.2-11.8); Monocytes Absolute Auto 0.69 K/mm3 (0.10-0.90); Monocytes Percent Auto 7.1 % (2.0-11.0); Neutrophils Absolute Auto 6.95 K/mm3 (1.70-7.20); Neutrophils Percent Auto 71.3 % (50.0-70.0); Platelet Count Result 257 K/mm3 (150-420); Red Blood Count 3.86 M/mm3 (4.20-5.40); Red Cell Distribution Width 13.9 % (11.6-14.4); White Blood Count 9.7 K/mm3 (4.8-10.8)
[2023-12-07 09:51] LABS: Partial Thromboplastin Time 30.6 Sec (23.9-30.70); Prothrombin Time 10.7 Seconds (9.50-12.1)
[2023-12-07 09:56] LABS: Alanine Aminotransferase 12 U/L (14-59); Albumin Level 3.2 g/dL (3.4-5.0); Alkaline Phosphatase 143 U/L (46-116); Anion Gap 15 mmol/L (4-12); Aspartate Amino Transferase < 10 U/L (15-37); Bilirubin,Total 0.4 mg/dL (0.00-1.00); Blood Urea Nitrogen 74 mg/dL (7-18); Carbon Dioxide 20 mmol/L (21-32); Chloride 108 mmol/L (98-108); Estimated CRCL calculation 35 ml/min; Estimated Glomerular Filt Rate 23; Glucose 117 mg/dL (70-99); NT Pro B Type Natriuretic Pept 245 pg/mL (0-125); Osmolality Calculated 318 mOsm/kg (285-295); Potassium 3.7 mmol/L (3.5-5.1); Sodium 143 mmol/L (136-145); Total Protein 7.5 g/dL (6.4-8.2)
[2023-12-07] MEDS: KETOROLAC (*BKC) 60 MG/2 ML VIAL IM (09:56)
[2023-12-07 09:57] LABS: Lipase 33 U/L (16-77); Troponin I 13.3 ng/L (0.00-60.4)
[2023-12-07 10:12] LABS: Appearance Urine Clear (Clear); Bilirubin Urine Negative (Negative); Blood Urine Negative (Negative); Color Urine Light Yellow (Yellow); Glucose Urine UA Negative (Negative); Ketones Urine Negative (Negative); Leukocyte Esterase Ur Trace LEU/UL (Negative); Nitrate Urine Negative (Negative); Protein Urine Trace (Negative); Urobilinogen Urine 0.2 mg/dL (0.2-1.0)
[2023-12-07 10:21] LABS: Add Urine Microscopic? YES; RBC Urine None seen /hpf (0-2); Squamous Epithelial Cell Urine Moderate /hpf (Few)
[2023-12-07 10:22] LABS: White Blood Cell Casts Urine Present /lpf
[2023-12-07] MEDS: SODIUM CHLORIDE 0.9% IV 1,000 ML 999 ML IV CONT (10:41)
[2023-12-07 10:57] LABS: Lactic Acid Reflex 0.9 mmol/L (0.4-2.0)
[2023-12-07] MEDS: levoFLOXacin 500 MG/D5W 100 ML 500 MG/100 ML BAG 100 MG IVPB (11:03)
[2023-12-07] MEDS: ASPIRIN 81 MG ENTERIC TABLET PO (13:12)
[2023-12-07 14:45] LABS: D Dimer 3.96 mg/L (0.19-0.50)
--- NOTE | 2023-12-07 15:00 | ECG_ITS ---
[address] Test Date: 2023-12-07 Pat Name: Janeen Woodward Department: Room: 226S Gender: F [employer] Inspector: PAULINO : 1965 Requested By: Emily Carlson Order Number: [id number] Reading MD: Randy Segura D.O. Measurements Intervals [place] Rate: 70 P: 74 IA: 173 QRS: 14 QRSD: 101 T: 43 QT: 394 QTc: 427 Interpretive Statements SINUS RHYTHM BASELINE WANDER- I, II, III, AVF, V2 NORMAL ECG Compared to ECG 12/07/2023 09:04:51 NO SIGNIFICANT CHANGE Electronically Signed On 12-07-2023 17:02:45 CDT by Randy Segura D.O.
[2023-12-07 15:28] LABS: Troponin I 23.3 ng/L (0.00-60.4)
[2023-12-07] MEDS: ACETAMINOPHEN 325 MG TABLET 650 MG PO (15:31)
[2023-12-07] MEDS: LACTATED RINGERS 1,000 ML 100 ML IV CONT (15:32)
--- NOTE | 2023-12-07 16:38 | PM.DS ---
DS: Admitting Diagnosis Discharge Date 12/06 Admitting Diagnosis chest pain DS: Discharge Diagnosis Discharge Diagnosis (1) SHAKIRA (acute kidney injury): Code(s): N17.9 - Acute kidney failure, unspecified Status: Acute Assessment and Plan: Cr 2.24, BUN 74 unclear etiology patient has a family history of renal failure with her mother and daughter. Both . She does not appear dry and reports a decent appetite. She uses ibuprofen daily for pain control for her back and shoulder. She assures me she only takes 800 mg tablets twice a day. Started on IVF LR at 100 ml per hour FeNa labs ordered Likely will need nephrology consult if Cr does not improve with fluids (2) Atypical chest pain: Code(s): R07.89 - Other chest pain Status: Acute Assessment and Plan: Reports pain starting this morning with sudden onset. Some shortness of breath with exertion. Troponin negative thus far EKG and repeat EKG normal sinus rhythm BNP mildly elevated (3) Metabolic acidosis: Code(s): E87.20 - Acidosis, unspecified Status: Acute Assessment and Plan: Metabolic acidosis with CO2 20, anion gap 15, BUN74, Cr 2.24 IVF add bicarb 650 mg tablet PO BID strict I&O (4) Elevated d-dimer: Code(s): R79.89 - Other specified abnormal findings of blood chemistry Status: Acute Assessment and Plan: Dimer elevated at 3.96 Some shortness of breath with exertion. Not requiring oxygen, not tachycardic Cannot obtain CTA due to renal function. VQ scan not available here. Will transfer to [place] for VQ scan and venous doppler DS: Summary Hospital Course Reason for hospitalization: chest pain Hospital Course: This is a pleasant 58 year old female with a PMH significant for migraines, CVA x 2, chronic back pain, frozen left shoulder, Rouen Y gastric bypass, and iritible bowel syndrome who presented to the emergency room with complaints of chest pain. The patient provides the following history. She was at home this morning when she developed sudden right, sub sternal chest pain that was sharp in nature. The pain did not travel. She did notice that she had some shortness of breath with activity but this clears with rest. She reports dizziness when she changes positions too quickly. At this present time she denies dizziness, headache, abdominal pain, nausea, vomiting, or constipation. She reports that she has loose stools due to her IBS. She denies recent ill contact. She deines recent fall or trauma. In the ED labs were significant for a white count of 9.7, hemoglobin 11.2, platelets 257, Cr 2.24, BUN 74. Her UA showed trace leukocytes and minimal wbcs. EKG shows NRS with a rate in the 70's. Chest XR shows no acute cardiopulmonary disease. She received a dose of Levaquin in the ED for possible UTI. She was admitted to the floor at [place] for observation for IV fluids for her acute kidney injury. During her workup her d-dimer was found to be elevated at 3.96. Unfortunately during the weekend we cannot do a VQ scan at [place] so the patient will need to be transfer to [facility] for further imaging and work up. I discussed plan of care with the patient who is agreeable to transfer. Status at Discharge Cognitive/behavioral status at discharge: A&Ox4, pleasant Time Spent with Patient Time attestation: Total time spent providing and/or coordinating discharge services:67 Exam Narrative: General: well appe aring, appears sta deidre age. HEENT: no rmocephalic, atrau matic. Mucous memb ranes moist. EOMI, PERRLA, bilateral sclera anicteric, no conjunctival i njection. Neck sup ple without JVD, l ymphadenopathy, or bruit. Respirator y: clear to auscul tation but diminis hed bilaterally. N o rales/rhonic/whe ezes. Cardiovascul ar: Regular rate a nd rhythm, normal S1-S2 upon auscult ation. No murmurs, rubs, or clicks. PMI is nondis
--- NOTE | 2023-12-07 18:10 | PC.NURSE ---
Nurses Note: Called report to [facility], pt to be transferred to [facility], nurse Ifeoma, charge nurse Ning to call for transportation, pt updated.
[2023-12-07] MEDS: ESCITALOPRAM OXALATE 10 MG TABLET 20 MG PO (19:23)
[2023-12-07] MEDS: ENOXAPARIN 60 MG/0.6 ML SYRINGE 35 MG SUB-Q (19:24)
[2023-12-07] MEDS: ENOXAPARIN 100 MG/ML SYRINGE SUB-Q (19:24)
--- NOTE | 2023-12-07 19:51 | PC.NURSE ---
Patient left via stretcher with [place] [facility] ambulance to [facility]. All patient belongings given to patient upon discharge. Left floor at 1945.
--- NOTE | 2023-12-10 15:21 | PM.SD2 ---
Same Day Admit/Disch: HPI History of Present Illness Chief complaint: SHAKIRA/Dehydration/UTI/Atypical CP Narrative: This is a pleasant 58 year old female with a PMH significant for migraines, CVA x 2, chronic back pain, frozen left shoulder, Rouen Y gastric bypass, and iritible bowel syndrome who presented to the emergency room with complaints of chest pain. The patient provides the following history. She was at home this morning when she developed sudden right, sub sternal chest pain that was sharp in nature. The pain did not travel. She did notice that she had some shortness of breath with activity but this clears with rest. She reports dizziness when she changes positions too quickly. At this present time she denies dizziness, headache, abdominal pain, nausea, vomiting, or constipation. She reports that she has loose stools due to her IBS. She denies recent ill contact. She deines recent fall or trauma. In the ED labs were significant for a white count of 9.7, hemoglobin 11.2, platelets 257, Cr 2.24, BUN 74. Her UA showed trace leukocytes and minimal wbcs. EKG shows NRS with a rate in the 70's. Chest XR shows no acute cardiopulmonary disease. She received a dose of Levaquin in the ED for possible UTI. She was admitted to the floor at [place] for observation for IV fluids for her acute kidney injury. During her workup her d-dimer was found to be elevated at 3.96. Unfortunately during the weekend we cannot do a VQ scan at [place] so the patient will need to be transfer to [facility] for further imaging and work up. I discussed plan of care with the patient who is agreeable to transfer. [facility] Past Medical History Medical History Asthma Depression Surgical History Surgical History Gastric bypass status for obesity Social History Social History Smoking status: Never smoker Alcohol intake: never Substance use: never Substance use type: does not use Do You Feel Safe in your Home?: Yes Lack of Transportation: No Lack of Food: Never True Current Housing: I Have Housing Concerned About Future Housing: No Difficulty Paying Gas/Electric Bills: No Difficulty Paying for Meds: No Currently Unemployed: No Education: High School Diploma/GED Difficulty w/ Childcare or Family Care: No Spiritual care concerns: No Same Day Admit/Disch: Med Pre-admit Medications Home Medications Medication Instructions Recorded Confirmed Type albuterol sulfate 90 mcg/actuation 2 puff inhalation PRN PRN 03/14/20 12/07/23 History aerosol inhaler Shortness Of Breath Or Wheezing amlodipine 5 mg tablet 5 mg PO DAILY 03/14/20 12/07/23 History jjowackaql-vondgmfnrolvp-keyrhmei 1 tablet PO PRN PRN Headache 03/14/20 12/07/23 History 50 mg-325 mg-40 mg tablet escitalopram oxalate 20 mg tablet 20 mg PO DAILY 03/14/20 12/07/23 History famotidine 40 mg tablet (Pepcid) 40 mg PO DAILY #7 tabs 03/14/20 12/07/23 Rx Review of Systems Review of Systems All systems reviewed & are unremarkable except as noted in HPI and below Exam Narrative: General: well ap pearing, appears s tated age. HEENT: normocephalic, at raumatic. Mucous m embranes moist. EO NM, PERRLA, bilate ral sclera anicter ic, no conjunctiva l injection. Neck supple without JVD , lymphadenopathy, or bruit. Missing teeth. Respirato ry: clear to auscu ltation but dimini shed bilaterally. No rales/rhonic/wh eezes. Cardiovasc ular: Regular rate and rhythm, hugo l S1-S2 upon auscu ltation. No murmur s, rubs, or clicks . PMI is nondispla nadia, capillary ref ill less than 3 se cond. Abdomen: So ft, round, pannus present, no pulsat ile masses, nondis tended and nontend er. No rebound, no guarding. No CVA tenderness, no hep atosplenomegaly. Bowel sounds prese nt to all fou
== END 2023-12-07 19:45 | disposition short-term general hospital (02) ==
LOC: CHSED 10:34 → CHS2ND 10:47
PROVIDERS: Nurse Practitioner Acute Care; Admitting Provider Internal Medicine; Emergency Provider Emergency Medicine; PCP Physician Assistant; Visit Provider Internal Medicine
DX: N17.9 Acute kidney failure, unspecified (principal); R07.89 Other chest pain; N39.0 Urinary tract infection, site not specified; E87.20 Acidosis, unspecified; R79.89 Other specified abnormal findings of blood chemistry; I10 Essential (primary) hypertension; J45.909 Unspecified asthma, uncomplicated; F32.A Depression, unspecified; Z98.84 Bariatric surgery status; Z79.85 Long-term (current) use of injectable non-insulin antidiabetic drugs; Z79.51 Long term (current) use of inhaled steroids; Z86.73 Personal history of transient ischemic attack (TIA), and cerebral infarction without residual deficits
CPT/HCPCS: 36415; 71046; 80053; 81001; 83605; 83690; 83880; 84484; 85025; 85380; 85610; 85730; 87040; 93005; 96361; 96365; 96372; 99285; A9270; G0378; J1650; J1885; J1956; J7030; J7120

== ENCOUNTER 2023-12-19 16:15 | Outpatient (CLI) | payer MEDICARE, MEDICAID, SELFPAY ==
[2023-12-19 17:06] LABS: Alanine Aminotransferase 22 U/L (14-59); Albumin Level 3.4 g/dL (3.4-5.0); Alkaline Phosphatase 155 U/L (46-116); Anion Gap 16 mmol/L (4-12); Aspartate Amino Transferase 16 U/L (15-37); Bilirubin,Total 0.4 mg/dL (0.00-1.00); Blood Urea Nitrogen 38 mg/dL (7-18); Calcium 8.9 mg/dL (8.5-10.1); Carbon Dioxide 20 mmol/L (21-32); Chloride 106 mmol/L (98-108); Estimated Glomerular Filt Rate 37; Glucose 117 mg/dL (70-99); Osmolality Calculated 304 mOsm/kg (285-295); Potassium 4.1 mmol/L (3.5-5.1); Sodium 142 mmol/L (136-145); Total Protein 7.1 g/dL (6.4-8.2)
== END 2023-12-19 16:16 | disposition home or self-care (01) ==
LOC: CHSLAB 16:19
PROVIDERS: PCP Physician Assistant; Visit Provider Physician Assistant
DX: R79.89 Other specified abnormal findings of blood chemistry (principal)
CPT/HCPCS: 36415; 80053

== ENCOUNTER 2024-04-30 11:30 | Outpatient (CLI) | payer MEDICARE, MEDICAID, SELFPAY ==
--- NOTE | ~2024-04-30 | MM_ITS ---
EXAMINATION: MM screening khadijah BI w debra HISTORY: Screening TECHNIQUE: Craniocaudal and mediolateral oblique 3-D tomosynthesis images were obtained and synthetic 2-D images were generated. CAD analysis was submitted and interpreted. COMPARISON: No prior mammogram is available for comparison at this institution. BREAST PARENCHYMAL COMPOSITION: Not dense: There are scattered areas of fibroglandular density. FINDINGS: There is no evidence of suspicious mass, calcification, or architectural distortion to sugg est malignancy in either breast. There has been no suspicious interval change. IMPRESSION: 1. No mammographic evidence of malignancy. 2. Recommend routine screening mammography in one year. BI-RADS Category 1: Negative Reviewed, dictated and finalized at location B.
== END 2024-04-30 11:31 | disposition home or self-care (01) ==
PROVIDERS: PCP Physician Assistant
DX: Z12.31 Encounter for screening mammogram for malignant neoplasm of breast (principal)
CPT/HCPCS: 77063; 77067

== ENCOUNTER 2024-06-18 20:14 | Emergency (ER) | payer MEDICARE, MEDICAID, SELFPAY ==
--- NOTE | ~2024-06-18 | CT_ITS ---
EXAMINATION: CT brain wo con DATE: 06/18/2024 20:56 INDICATION: Head injury. TECHNIQUE: Computed tomography (CT) of the head was performed without intravenous contrast. The mA wa s adjusted according to patient size. Iterative reconstruction technique was employed. The dose-lengt h product was 605.33 mGy-cm. COMPARISON: None FINDINGS: There is no intracranial hemorrhage, acute infarction, or abnormal intracranial mass lesion . The ventricles are normal in size. The orbits are normal. There is mild mucosal thickening in the p aranasal sinuses. The mastoid air cells are normal. IMPRESSION: 1. Normal brain. Reviewed, dictated and finalized at location A. ICER AND PACKER IMPRESSION: 1. Normal brain.
--- NOTE | ~2024-06-18 | CT_ITS ---
EXAMINATION: CT cervical spine wo con DATE: 06/18/2024 20:56 INDICATION: Neck pain. Fall. TECHNIQUE: Computed tomography (CT) of the cervical spine was performed without intravenous contrast. Automated exposure control and iterative reconstruction technique were employed. The dose-length pro duct was 485.34 mGy-cm. COMPARISON: None FINDINGS: There is a right internal jugular and mediastinal lymphadenopathy with speckled calcificati ons in some of the nodes. The largest node measures 2.5 x 2.4 cm. There is a 15 mm nodule in right th yroid lobe. There is mild kyphosis of cervical spine. There is 5 degrees dextrocurvature of cervical spine. Vertebral body heights are normal. There is moderately decreased disc height at C4-C5 and sachin rely decreased disc height at C5-C6 and C6-C7. The following disc levels are specifically discussed: C2-C3: There is no uncovertebral joint osteoarthritis. There is mild bilateral facet joint osteoarthr itis. There is no neural foraminal stenosis. There is no central canal stenosis. C3-C4: There is no uncovertebral joint osteoarthritis. There is mild right facet joint osteoarthritis . There is no neural foraminal stenosis. There is no central canal stenosis. C4-C5: There is moderate right and mild left uncovertebral joint osteoarthritis. There is mild bilate ral facet joint osteoarthritis. There is mild bilateral neural foraminal stenosis. There is mild cent ral canal stenosis. C5-C6: There is severe bilateral uncovertebral joint osteoarthritis. There is moderate right and mild left facet joint osteoarthritis. There is mild bilateral neural foraminal stenosis. There is mild ce ntral canal stenosis. C6-C7: There is severe bilateral uncovertebral joint osteoarthritis. There is moderate bilateral face t joint osteoarthritis. There is mild bilateral neural foraminal stenosis. There is mild central fabian l stenosis. C7-T1: There is no uncovertebral joint osteoarthritis. There is mild bilateral facet joint osteoarthr itis. There is no neural foraminal stenosis. There is no central canal stenosis. IMPRESSION: 1. No fracture. 2. Severe cervical spondylosis. 3. Right internal jugular and mediastinal lymphadenopathy suspicious for metastatic disease. Ultrasou nd-guided core needle biopsy of a right internal jugular node is recommended. 4. Right thyroid nodule. Consider thyroid ultrasound for risk stratification. Reviewed, dictated and finalized at location A. DIENE CONVERTOR OPERATOR IMPRESSION: 1. No fracture. 2. Severe cervical spondylosis. 3. Right internal jugular and mediastinal lymphadenopathy suspicious for metast atic disease. Ultrasound-guided core needle biopsy of a right internal jugular node is recommended. 4. Right thyroid nodule. Consider thyroid ultrasound for risk stratification.
--- NOTE | ~2024-06-18 | XR_ITS ---
EXAMINATION: XR knee RT min 4V DATE: 06/18/2024 20:57 INDICATION: Right knee pain. Fall. TECHNIQUE: 5 views of right knee were obtained. COMPARISON: None. FINDINGS: Alignment is normal. No fracture. There is severe osteoarthritis of lateral and patellofemo ral compartments and mild osteoarthritis of medial compartment. There is a small knee joint effusion. IMPRESSION: 1. Severe right knee osteoarthritis. 2. Small right knee joint effusion. Reviewed, dictated and finalized at location A. OL BUS ATTENDANT
[2024-06-18 20:17] VITALS: BP 129/63; PULSE 84; RESP 18; TEMP 36.2; O2SAT 100
--- NOTE | 2024-06-18 20:20 | ED.FALL ---
HPI - Fall General Chief Complaint: Fall Stated Complaint: fall Time Seen by Provider: 06/18/24 20:19 Source: patient Mode of arrival: ambulatory Limitations: no limitations History of Present Illness HPI Narrative: 58-year-old female with a history of obesity status post gastric bypass, CVA, migraine, chronic low back pain, IBS, hypertension, frozen left shoulder had an accidental fall 1-1/2 hours ago. Her feet got caught on the door mat causing her to fall. She presents with -- right knee pain with decreased range of motion. Bruising around the knee -- she fell on her left forehead. No loss of consciousness. Complains of left frontal headache and dizziness. No focal neuro deficit. The patient is not on any anticoagulation. -- She has chronic neck pain. MD complaint: fall Onset (ago): hour(s) ( 1.5 hours ago) Fall from: standing Fall witnessed: no Place fall occurred: home Loss of consciousness: none Prolonged down time: no Symptoms prior to fall: none Context: tripped/slipped Location of injury: head and other ( right knee) Location of injury - extremities: Right: knee Severity: moderate Quality: aching Associated symptoms (after fall): headache and lightheaded Related Data Home Medications ?Medication ?Instructions ?Recorded ?Confirmed ?Last Taken ?Type albuterol sulfate 90 mcg/actuation 2 puff inhalation PRN PRN 03/14/20 12/07/23 Unknown History aerosol inhaler Shortness Of Breath Or Wheezing amlodipine 5 mg tablet 5 mg PO DAILY 03/14/20 12/07/23 Unknown History zigbzddbke-tjdtmajiewyhb-oxfdkhbk 1 tablet PO PRN PRN Headache 03/14/20 12/07/23 Unknown History 50 mg-325 mg-40 mg tablet escitalopram oxalate 20 mg tablet 20 mg PO DAILY 03/14/20 12/07/23 Unknown History Allergies Allergy/AdvReac Type Severity Reaction Status Date / Time amoxicillin Allergy Unknown Unknown Verified 06/18/24 21:12 tetracycline Allergy Unknown Unknown Verified 06/18/24 21:12 sulfamethoxazole (From Allergy Rash Verified 06/18/24 21:12 Bactrim) trimethoprim (From Bactrim) Allergy Rash Verified 06/18/24 21:12 Review of Systems Review of Systems: All systems reviewed & are unremarkable except as noted in HPI and below Constitutional: Constitutional: Reports as per HPI and Reports no additional constitutional complaints Eyes: Eyes: Reports as per HPI and Reports no additional eye complaints ENT: Reports system reviewed and no additional complaints, except as documented and Reports as per HPI Cardiovascular: Cardiovascular: Reports as per HPI and Reports no additional cardiovascular complaints Respiratory: Respiratory: Reports as per HPI and Reports no additional respiratory complaints Gastrointestinal: Gastrointestinal: Reports as per HPI and Reports no additional gastrointestinal complaints Comments: chronic diarrhea Genitourinary: Genitourinary: Reports no additional female genitourinary complaints and Reports as per HPI Musculoskeletal: Musculoskeletal: Reports no additional musculoskeletal complaints and Reports as per HPI Comments: chronic left frozen shoulder with decreased range of motion and chronic pain right knee pain with decreased range of motion Integumentary/Breasts: Skin/Breast: Reports system reviewed and no additional complaints, except as docu and Reports as per HPI Comments: bruising around the right knee Neurologic: Reports system reviewed and no additional complaints, except as documented and Reports as per HPI Psychiatric: Psychiatric: Reports no additional psychiatric complaints and Reports as per HPI Endocrine: Endocrine: Reports no additional endocrine complaints and Reports as per HPI Hematologic/Lymphatic: Hematologic/Lymphatic: Reports no additional hematologic/lymphatic complaints and Reports as per HPI Allergic/Immunologic: Allergic/Immunologic: Reports no additional allergic/immunologic complaints and Reports as per HPI PMFSH Past Medical History Medical History Asthma Depression Surgical History Surgical History Gastric bypass status for obesity Social History Social History Smoking status: Never smoker Alcohol intake: never Substance use: never Substance use type: does not use Do You Feel Safe in your Home?: Yes Lack of Transportation: No Lack of Food: Never True Current Housing: I Have Housing Concerned About Future Housing: No Difficulty Paying Gas/Electric Bills: No Difficulty Paying for Meds: No Currently Unemployed: No Education: High School Diploma/GED Difficulty w/ Childcare or Family Care: No Spiritual care concerns: No Exam Narrative: blood pressure 129/63 with a heart rate of 84. Oxygen saturation 100% on room air. Const: General: no acute distress Nutritional Appearance: well nourished Orientation/consciousness: patient oriented x3 Limitations: no limitations HENMT: Head: normal to inspection Ears: external ears normal, TM's normal bilaterally and EAC's normal Face/Nose/Sinus: Normal external nose present and Normal nares present Face and sinus: normal facial exam Mouth: Yes Normal oral and palatal mucosa present Throat: posterior oropharynx normal Eyes: Conjunctivae: conjunctivae normal Pupils: Equal, round and reactive pupils present EOM: EOMs intact bilaterally Direct Ophthalmoscopy: no photophobia Neck: Neck: normal visual inspection, no lymphadenopathy and no meningeal signs Chest: Chest palpation & inspection: normal inspection of the chest Resp: Effort & Inspection: normal respiratory effort Auscultation: clear to auscultation bilaterally Cardio: Rate: regular rate Rhythm: regular rhythm GI: Auscultation: normal bowel sounds Other: No tenderness/ rigidity /rebound. : General: Yes no CVA tenderness Back/Spine/Pelvis: Back: no CVA tenderness Skin: General skin exam: normal color Other: Bruising right knee Neuro: General: patient oriented x3, moves all extremities, no meningeal signs and no focal motor deficits Cranial nerves: Yes Nystagmus not present Speech: normal speech Extrem: Other: left shoulder has decreased range of motion right knee-- decreased range of motion. Tenderness on palpation. Unable to do the stress test secondary to the pain. Psych: Mental Status: mental status grossly normal Affect: normal affect Attitude: cooperative Course Course Emergency Course: Accidental fall head injury- CT of the head did not show any acute findings. CT of the C-spine did not show fracture/ dislocation which revealed severe cervical spondylosis. It also revealed a right IJ and mediastinal lymphadenopathy. The patient was also noted to have a right thyroid nodule. right knee pain with contusion-- Severe osteoarthritis. No fracture noted. Vital Signs Vital signs: Vital Signs Temperature 36.2 C L 06/18/24 20:17 Pulse Rate 84 06/18/24 20:17 Respiratory Rate 18 06/18/24 20:17 Blood Pressure 129/63 06/18/24 20:17 Pulse Oximetry 100 06/18/24 20:17 Oxygen Delivery Room Air 06/18/24 20:17 Temperature 36.2 C L 06/18/24 20:17 Pulse Rate 84 06/18/24 20:17 Respiratory Rate 18 06/18/24 20:17 Blood Pressure 129/63 06/18/24 20:17 Pulse Oximetry 100 06/18/24 20:17 Oxygen Delivery Room Air 06/18/24 20:17 MDM - Fall MDM Narrative Medical decision making narrative: Accidental fall with head injury chronic neck pain right knee severe osteoarthritis right IJ and mediastinal lymphadenopathy-- would recommend further workup. Differential Diagnosis Differential diagnosis: Likely compression fracture and concussion with loss of consciousness Discharge Plan Discharge Clinical Impression: Mediastinal lymphadenopathy, Thyroid nodule Accidental fall Qualifiers: Encounter type: initial encounter Qualified Code(s): W19.XXXA - Unspecified fall, initial encounter Head injury Qualifiers: Encounter type: initial encounter Qualified Code(s): S09.90XA - Unspecified injury of head, initial encounter Knee pain Qualifiers: Chronicity: acute Laterality: right Qualified Code(s): M25.561 - Pain in right knee Patient Disposition: Home, Self-Care Condition: Stable Instructions: Antibiotic Form, Lymphadenopathy (ED), Head Injury (ED), Knee Pain (ED), Fall Prevention (ED) Additional Instructions: advise the patient and about head injury precautions. Discussed the emergent need to follow-up with Oncology/ pulmonary for mediastinal lymphadenopathy. Patient Language: Montserratian Prescriptions: No Action amlodipine 5 mg tablet 5 mg PO DAILY oajpuprggn-ywjnhafsswhia-pivj 50-325-40 mg tablet 1 tablet PO PRN PRN (Reason: Headache) albuterol sulfate 90 mcg/actuation HFA aerosol inhaler 2 puff INHALATION PRN PRN (Reason: Shortness Of Breath Or Wheezing) escitalopram oxalate 20 mg tablet 20 mg PO DAILY famotidine [Pepcid] 40 mg tablet 40 mg PO DAILY Qty: 7 0RF Follow-up/Referrals: Narda,CAROLYN Cloud [Primary Care Provider] - Time of Disposition: 21:40
--- NOTE | 2024-06-18 21:31 | PC.NURSE ---
DR. Gomez at bedside presenting patient with results of imaging and plan of care. visitor at bedside. call light within reach.
[2024-06-18] MEDS: HYDROcodone/acetaminophen (*CRX) 5-325 MG TABLET 1 TAB PO (21:55)
== END 2024-06-18 22:10 | disposition home or self-care (01) ==
PROVIDERS: Emergency Provider Internal Medicine Critical Care Medicine; PCP Physician Assistant
DX: R59.0 Localized enlarged lymph nodes (principal); E04.1 Nontoxic single thyroid nodule; S80.01XA Contusion of right knee, initial encounter; I10 Essential (primary) hypertension; W01.0XXA Fall on same level from slipping, tripping and stumbling without subsequent striking against object, initial encounter
CPT/HCPCS: 70450; 72125; 73564; 99284; A9270

== ENCOUNTER 2024-06-26 10:34 | Emergency (ER) | payer MEDICARE, MEDICAID, SELFPAY ==
--- NOTE | ~2024-06-26 | CT_ITS ---
EXAMINATION: CT brain wo con DATE: 06/26/2024 12:02 INDICATION: Headache 7 days post fall TECHNIQUE: Computed tomography (CT) of the head was performed without intravenous contrast. Sagittal and coronal reconstructions were performed. The mA was adjusted according to patient size. Iterative reconstruction technique was employed. The dose-length product was 605.33 mGy-cm. COMPARISON: head CT dated 06/18/24 FINDINGS: No fracture. No acute intracranial hemorrhage, acute infarction or abnormal extra axial fluid collect ion. Ventricles are normal and symmetric. No mass/mass effect. The orbits and paranasal sinuses are n ormal. The bilateral hyperpneumatized mastoids are clear. IMPRESSION: 1. No fracture or acute intracranial process. Reviewed, dictated and finalized at location A. HIC COORDINATOR
[2024-06-26 10:35] VITALS: BP 140/61; PULSE 76; RESP 20; TEMP 36.6; O2SAT 99
[2024-06-26] MEDS: KETOROLAC (*BKC) 60 MG/2 ML VIAL IM (11:18)
[2024-06-26 12:14] VITALS: BP 135/65; PULSE 67; RESP 16; TEMP 37.1; O2SAT 99
--- NOTE | 2024-06-26 12:20 | ED_ITS ---
HPI - Headache General Chief Complaint: Headache Stated Complaint: frontal headache Time Seen by Provider: 06/26/24 10:57 Source: patient and family Mode of arrival: ambulatory Limitations: no limitations History of Present Illness HPI Narrative: This is a 58-year-old female that presents with some headache has tried gpwd-iga-xovjbef medication and called her primary and was advised to come to the ER for CT scan of the brain to rule out brain bleed. , patient did have a CT scan performed 1 week ago that occurred after the fall and had no acute abnormalities at that time. Patient continues to have a headache and there is no neck pain no blurry vision no nausea vomiting no neurological deficits. MD elicited complaint: headache Pertinent past history: recent trauma Onset (ago): week(s) Onset description: suddenly Location: frontal Severity: mild Related Data Home Medications ?Medication ?Instructions ?Recorded ?Confirmed ?Last Taken ?Type albuterol sulfate 90 mcg/actuation 2 puff inhalation PRN PRN 03/14/20 12/07/23 Unknown History aerosol inhaler Shortness Of Breath Or Wheezing amlodipine 5 mg tablet 5 mg PO DAILY 03/14/20 12/07/23 Unknown History xyhblzyvri-zcbuoxvvsyaej-ztgcnjfz 1 tablet PO PRN PRN Headache 03/14/20 12/07/23 Unknown History 50 mg-325 mg-40 mg tablet escitalopram oxalate 20 mg tablet 20 mg PO DAILY 03/14/20 12/07/23 Unknown History Allergies Allergy/AdvReac Type Severity Reaction Status Date / Time amoxicillin Allergy Unknown Unknown Verified 06/18/24 21:12 tetracycline Allergy Unknown Unknown Verified 06/18/24 21:12 sulfamethoxazole (From Allergy Rash Verified 06/18/24 21:12 Bactrim) trimethoprim (From Bactrim) Allergy Rash Verified 06/18/24 21:12 Review of Systems Review of Systems: All systems reviewed & are unremarkable except as noted in HPI and below PMFSH Past Medical History Medical History Asthma Depression Surgical History Surgical History Gastric bypass status for obesity Social History Social History Smoking status: Never smoker Alcohol intake: never Substance use: never Substance use type: does not use Do You Feel Safe in your Home?: Yes Lack of Transportation: No Lack of Food: Never True Current Housing: I Have Housing Concerned About Future Housing: No Difficulty Paying Gas/Electric Bills: No Difficulty Paying for Meds: No Currently Unemployed: No Education: High School Diploma/GED Difficulty w/ Childcare or Family Care: No Spiritual care concerns: No Exam Const: General: healthy appearing, no acute distress and alert Nutritional Appearance: well nourished Orientation/consciousness: patient oriented x3 Limitations: no limitations HENMT: Head: normal to inspection Eyes: Conjunctivae: conjunctivae normal Pupils: Equal, round and reactive pupils present EOM: EOMs intact bilaterally Direct Ophthalmoscopy: no photophobia Neck: Neck: normal visual inspection, no lymphadenopathy and no meningeal signs Chest: Chest palpation & inspection: normal inspection of the chest Resp: Effort & Inspection: normal respiratory effort Auscultation: clear to auscultation bilaterally Cardio: Rate: regular rate Rhythm: regular rhythm GI: GI Palp: Yes Soft to palpation Auscultation: normal bowel sounds : General: Yes bladder normal to palpation Back/Spine/Pelvis: Back: no CVA tenderness Skin: General skin exam: normal color Rashes: no rashes Wounds: no wounds Neuro: General: patient oriented x3, moves all extremities, no meningeal signs and no focal motor deficits Extrem: General: normal to inspection and no clubbing, cyanosis or edema Psych: Mental Status: mental status grossly normal Course Course Emergency Course: Patient received 60mg IM Toradol and after reassessment patient's pain level has improved CT scan performed shows no acute intracranial abnormalities. Vital Signs Vital signs: Vital Signs Temperature 36.6 C 06/26/24 10:35 Pulse Rate 76 06/26/24 10:35 Respiratory Rate 20 06/26/24 10:35 Blood Pressure 140/61 06/26/24 10:35 Pulse Oximetry 99 06/26/24 10:35 Oxygen Delivery Room Air 06/26/24 10:35 Temperature 37.1 C 06/26/24 12:14 Pulse Rate 67 06/26/24 12:14 Respiratory Rate 16 06/26/24 12:14 Blood Pressure 135/65 06/26/24 12:14 Pulse Oximetry 99 06/26/24 12:14 Oxygen Delivery Room Air 06/26/24 12:14 Critical Care Time Critical Care Time Critical Care Time: No Discharge Plan Discharge Clinical Impression: Post concussion syndrome Headache Qualifiers: Headache type: unspecified Headache chronicity pattern: unspecified pattern Intractability: not intractable Qualified Code(s): R51.9 - Headache, unspecified Patient Disposition: Home, Self-Care Condition: Stable Instructions: Antibiotic Form, Concussion (ED), Acute Headache (ED) Additional Instructions: advised continue pain medication and follow-up with primary for further evaluation and treatment. Patient Language: Indonesian Prescriptions: No Action amlodipine 5 mg tablet 5 mg PO DAILY fplklccsty-xpeojkejxjwcg-gjre 50-325-40 mg tablet 1 tablet PO PRN PRN (Reason: Headache) albuterol sulfate 90 mcg/actuation HFA aerosol inhaler 2 puff INHALATION PRN PRN (Reason: Shortness Of Breath Or Wheezing) escitalopram oxalate 20 mg tablet 20 mg PO DAILY famotidine [Pepcid] 40 mg tablet 40 mg PO DAILY Qty: 7 0RF Follow-up/Referrals: Narda,CAROLYN Cloud [Primary Care Provider] - Time of Disposition: 12:23
[2024-06-26 12:39] VITALS: BP 139/69; PULSE 62; RESP 20; TEMP 36.8; O2SAT 100
== END 2024-06-26 12:45 | disposition home or self-care (01) ==
PROVIDERS: Emergency Provider Emergency Medicine; PCP Physician Assistant
DX: R51.9 Headache, unspecified (principal); F07.81 Postconcussional syndrome
CPT/HCPCS: 70450; 96372; 99284; J1885

== ENCOUNTER 2024-10-13 10:48 | Outpatient (RCR) | payer MEDICARE, MEDICAID, SELFPAY ==
--- NOTE | 2024-10-13 12:00 | OPREHPOC ---
Outpatient Therapy Plan of Care This is a Multidisciplinary Plan of Care that may contain components documented by all disciplines (PT, OT, and ST.) PT Problem 1 PT Problem #1 Knowledge Deficit PT Goal 1 Goal / Goal Update Independent and compliant with HEP. Target Visit 4 PT Problem 2 PT Problem #2 Impaired Strength PT Goal 1 Goal / Goal Update Pt to improve gross UE strength to 4+/5. Pt to improve gross LE strength to 4/5. Target Visit 12 PT Problem 3 PT Problem #3 Impaired Functional Mobility PT Goal 1 Goal / Goal Update Pt to improve 5xSTS time to 25 seconds or less. Pt to improve 6MWT distance to 500ft without a rest break. Target Visit 12
--- NOTE | 2024-10-13 12:00 | PTOPEVAL1 ---
Assessment and note entered by Jessica Lopez, PT Evaluation Information Assessment Status Evaluation ICD-10 Condition Codes (PT) Difficulty Walking R26.2,Weakness R53.1 Other ICD-10 Condition Codes ( M62.81 PT) Onset 10/06/24 Subjective Information Pt reports she started getting arm and leg weakness that caused falling and inability to walk and perform functional activities. A recent fall 3 weeks ago led to a ER visit and they found thyroid cancer. She had surgery 2 weeks ago to remove the cancer. She states there's still a couple spots they couldn't get and they're hoping radiation will take care of the rest. She was previously in a wheelchair but enters the clinic using a rollator which she's been using since surgery. She has a ramp and stairs at home but currently tries to just use the ramp. Reported Pain Level Pain Score 6: Self Report Assessment PT Clinical Summary Mrs. Woodward is a 59 yo female who enters the clinic for generalized upper and lower extremity weakness and functional decline. She was recently diagnosed with thyroid cancer that pt reports was initially seen on imaging in 2021 but she was unaware of it, and she was later officially diagnosed 3 weeks ago. She demonstrates moderate upper and lower extremity weakness along with the inability to walk long distances in the clinic or stand up from a chair without excessive fatigue. She will benefit from skilled PT intervention to improve on these deficits to be able to perform functional tasks with less fatigue. Plan of Care Interventions Gait Training,Hot Pack/Cold Pack,Manual Lymph Drainage,Manual Therapy,Neuro Re-education,Patient /Caregiver Education,Therapeutic Activities, Therapeutic Exercise,Self-Care/Home Management PT Services Indicated Yes Treatment Frequency and 2x/week for 12 visits Duration These treatments will address the objective and functional deficits as defined above. The patient will be advanced safely and appropriately in order for the patient to progress towards his/her prior level of function. Additional exercises will be introduced and as well as a comprehensive home exercise program upon discharge, if needed, ?to ensure carryover of functional gains achieved in the clinic. This treatment plan has been reviewed and agreement upon by the patient.
--- NOTE | 2024-11-04 15:45 | PTOPPROG ---
Assessment and note entered by Kristal Pruitt DPT Evaluation Information Assessment Status Re-evaluation ICD-10 Condition Codes (PT) Difficulty Walking R26.2,Weakness R53.1 Other ICD-10 Condition Codes ( M62.81 PT) Onset 10/06/24 Subjective Information patient reports she was in the hospital for 6 days following abscess that was on the incisional area . she reports her legs have been feeling stronger. she reports that her R shoulder and neck have been really stiff and sore. she reports she saw the surgeon last week and has cleared by him. She reports she is waiting for a follow up with radiologist. Assessment PT Clinical Summary Mrs. Woodward is a 59 yo female who enters the clinic for generalized upper and lower extremity weakness and functional decline. She was recently diagnosed with thyroid cancer that pt reports was initially seen on imaging in 2021 but she was unaware of it, and she was later officially diagnosed 3 weeks ago. She demonstrates moderate upper and lower extremity weakness along with the inability to walk long distances in the clinic or stand up from a chair without excessive fatigue. She will benefit from skilled PT intervention to improve on these deficits to be able to perform functional tasks with less fatigue. Plan of Care Interventions Gait Training,Hot Pack/Cold Pack,Manual Lymph Drainage,Manual Therapy,Neuro Re-education,Patient /Caregiver Education,Therapeutic Activities, Therapeutic Exercise,Self-Care/Home Management PT Services Indicated Yes Treatment Frequency and continue with current POC Duration These treatments will address the objective and functional deficits as defined above. The patient will be advanced safely and appropriately in order for the patient to progress towards his/her prior level of function. Additional exercises will be introduced and as well as a comprehensive home exercise program upon discharge, if needed, ?to ensure carryover of functional gains achieved in the clinic. This treatment plan has been reviewed and agreement upon by the patient.
--- NOTE | 2024-12-03 11:03 | OPREHPOC ---
Outpatient Therapy Plan of Care This is a Multidisciplinary Plan of Care that may contain components documented by all disciplines (PT, OT, and ST.) PT Problem 1 PT Problem #1 Knowledge Deficit PT Goal 1 Goal / Goal Update Independent and compliant with HEP. Target Visit 4 Progress Met PT Problem 2 PT Problem #2 Impaired Strength PT Goal 1 Goal / Goal Update Pt to improve gross UE strength to 4+/5. Pt to improve gross LE strength to 4/5. Target Visit 12 Progress Not Met PT Problem 3 PT Problem #3 Impaired Functional Mobility PT Goal 1 Goal / Goal Update Pt to improve 5xSTS time to 25 seconds or less. Pt to improve 6MWT distance to 500ft without a rest break. -met Pt to improve B cervical rotation to 60 deg to return to driving at PLOF Target Visit 12 Progress Partially Met
--- NOTE | 2024-12-03 11:03 | PTOPPROG ---
Assessment and note entered by Jessica Lopez, PT Evaluation Information Assessment Status Progress - Pt Not Present ICD-10 Condition Codes (PT) Difficulty Walking R26.2,Weakness R53.1 Other ICD-10 Condition Codes ( M62.81 PT) Onset 10/06/24 Subjective Information Pt shoulder and neck have continued to feel stiff and sore. She recently had an MRI done and has an esophageal abscess. She does feel like her legs have been getting stronger and hopes to transition from a walker to a cane soon. Assessment PT Clinical Summary Mrs. Woodward has attended 9 total skilled PT visits for neck/shoulder pain and functional decline following recent hospital stay. Since beginning therapy she has made improvements in her endurance and is able to tolerate long distance ambulation using her rollator before needing a seated rest break. She does still experiences neck and shoulder stiffness and tightness and would benefit from continued skilled PT to improve these deficits to be able to perform daily functional tasks such as housework and driving with less pain . Plan of Care Interventions Gait Training,Hot Pack/Cold Pack,Manual Lymph Drainage,Manual Therapy,Neuro Re-education,Patient /Caregiver Education,Therapeutic Activities, Therapeutic Exercise,Self-Care/Home Management PT Services Indicated Yes Treatment Frequency and Continue per original POC Duration These treatments will address the objective and functional deficits as defined above. The patient will be advanced safely and appropriately in order for the patient to progress towards his/her prior level of function. Additional exercises will be introduced and as well as a comprehensive home exercise program upon discharge, if needed, ?to ensure carryover of functional gains achieved in the clinic. This treatment plan has been reviewed and agreement upon by the patient.
--- NOTE | 2024-12-15 14:35 | OPREHPOC ---
Outpatient Therapy Plan of Care This is a Multidisciplinary Plan of Care that may contain components documented by all disciplines (PT, OT, and ST.) PT Problem 1 PT Problem #1 Knowledge Deficit PT Goal 1 Goal / Goal Update Independent and compliant with HEP. Target Visit 4 Progress Met PT Problem 2 PT Problem #2 Impaired Strength PT Goal 1 Goal / Goal Update Pt to improve gross UE strength to 4+/5. Pt to improve gross LE strength to 4/5. Target Visit 12 Progress Not Met PT Problem 3 PT Problem #3 Impaired Functional Mobility PT Goal 1 Goal / Goal Update Pt to improve 5xSTS time to 25 seconds or less. - met Pt to improve 6MWT distance to 500ft without a rest break. -met Pt to improve B cervical rotation to 60 deg to return to driving at PLOF -progressing Target Visit 12 Progress Partially Met
--- NOTE | 2024-12-15 14:35 | PTOPPROG ---
Assessment and note entered by Jessica Lopez, PT Evaluation Information Assessment Status Progress ICD-10 Condition Codes (PT) Difficulty Walking R26.2,Weakness R53.1 Other ICD-10 Condition Codes ( M62.81 PT) Onset 10/06/24 Subjective Information Pt reports she is still using her walker and still wishes to transition to a cane so she can return to driving, however she still feels unsteady on her feet and doesn't feel comfortable using a cane yet. She also reports she's been waiting to hear from her doctor about getting her abscess drained. She's on her last dose antibiotics for the abscess and is hoping she can start radiation soon as she's supposed to be infection-free for 2 weeks before she can start. Assessment PT Clinical Summary Mrs. Woodward has attended 10 skilled PT visits for R side neck and shoulder pain, gait and functional decline. Since starting PT she's made progress in her strength but continues to demonstrate weakness primarily on her R side both in the arm and leg. She has made good progress in her functional mobility and is now able to perform 5xSTS in 13 seconds, however she still demonstrates gait deficits and imbalance that increase her risk of falling and prevent her from driving. She will benefit from continued skilled PT intervention to continue progressing toward goals to return to PLOF and improve quality of life. Plan of Care Interventions Gait Training,Hot Pack/Cold Pack,Manual Lymph Drainage,Manual Therapy,Neuro Re-education,Patient /Caregiver Education,Therapeutic Activities, Therapeutic Exercise,Self-Care/Home Management PT Services Indicated Yes Treatment Frequency and 2x/week for 10 additional visits Duration These treatments will address the objective and functional deficits as defined above. The patient will be advanced safely and appropriately in order for the patient to progress towards his/her prior level of function. Additional exercises will be introduced and as well as a comprehensive home exercise program upon discharge, if needed, ?to ensure carryover of functional gains achieved in the clinic. This treatment plan has been reviewed and agreement upon by the patient.
--- NOTE | 2025-02-03 10:02 | OPREHPOC ---
Outpatient Therapy Plan of Care This is a Multidisciplinary Plan of Care that may contain components documented by all disciplines (PT, OT, and ST.) PT Problem 1 PT Problem #1 Knowledge Deficit PT Goal 1 Goal / Goal Update Independent and compliant with HEP. Target Visit 4 Progress Met PT Problem 2 PT Problem #2 Impaired Strength PT Goal 1 Goal / Goal Update Pt to improve gross UE strength to 4+/5. Pt to improve gross LE strength to 4/5. Target Visit 22 Progress Not Met PT Problem 3 PT Problem #3 Impaired Functional Mobility PT Goal 1 Goal / Goal Update Pt to improve 5xSTS time to 25 seconds or less. - met Pt to improve 6MWT distance to 500ft without a rest break. -met Pt to improve B cervical rotation to 60 deg to return to driving at PLOF -progressing Target Visit 22 Progress Partially Met PT Problem 4 PT Problem #4 Pain PT Goal 1 Goal / Goal Update patient to report no more than 2/10 pain at worst in the cervical spine Target Visit 22
--- NOTE | 2025-02-03 10:03 | PTOPPROG ---
Assessment and note entered by JT File, PT Evaluation Information Assessment Status Progress - Pt Not Present ICD-10 Condition Codes (PT) Difficulty Walking R26.2,Weakness R53.1 Other ICD-10 Condition Codes ( M62.81 PT) Onset 10/06/24 Subjective Information patient has not been to skilled PT in a little over a week. she has had to cancel due to other medical treatments taking place (radiation). she would like to come back to skilled PT, but needs new auth for continued treatment. Assessment PT Clinical Summary mrs. stauffer has attended 16 skilled PT visit as of this date. she continues to display weakness in the bilateral UE's and LE's. she also displays shortened step/stride length with ambulation still , and has pain in the neck. she has been off of skilled PT due to needing radiation. she is now ready to come back to skilled PT, but needs new authorization and a date extension. continued skilled PT is indicated to continue to improve her strength, reduce her pain, and improve her functional activity performance to achieve goals and improved quality of life. Plan of Care Interventions Gait Training,Hot Pack/Cold Pack,Manual Lymph Drainage,Manual Therapy,Neuro Re-education,Patient /Caregiver Education,Therapeutic Activities, Therapeutic Exercise,Self-Care/Home Management PT Services Indicated Yes Treatment Frequency and continue skilled PT 2x weekly for 6 more visits ( Duration 22 total) These treatments will address the objective and functional deficits as defined above. The patient will be advanced safely and appropriately in order for the patient to progress towards his/her prior level of function. Additional exercises will be introduced and as well as a comprehensive home exercise program upon discharge, if needed, ?to ensure carryover of functional gains achieved in the clinic. This treatment plan has been reviewed and agreement upon by the patient.
== END 2025-01-11 23:59 | disposition home or self-care (01) ==
LOC: CHSPT 10:48
PROVIDERS: PCP Physician Assistant; Visit Provider Physician Assistant
DX: M62.81 Muscle weakness (generalized) (principal); R26.2 Difficulty in walking, not elsewhere classified
CPT/HCPCS: 97110; 97112; 97140; 97161; 97530

== ENCOUNTER 2024-10-14 16:12 | Outpatient (CLI) | payer MEDICARE, MEDICAID, SELFPAY ==
[2024-10-14 16:40] LABS: Anion Gap 9 mmol/L (4-12); Blood Urea Nitrogen 23 mg/dL (7-18); Calcium 8.8 mg/dL (8.5-10.1); Carbon Dioxide 28 mmol/L (21-32); Chloride 110 mmol/L (98-108); Estimated Glomerular Filt Rate 40; Glucose 143 mg/dL (70-99); Osmolality Calculated 309 mOsm/kg (285-295); Sodium 147 mmol/L (136-145)
--- OUTSIDE RECORDS SUMMARY | 2024-10-14 17:03 | XMS_ITS | Encounter Summary ---
Author Organization [facility] Address [address] [facility] [address] [place] [address] Phone Care Team Providers Care Restorative Coordinator Name Role Phone Romie Laboy Primary Care Provider [phone] Encounter Details Date Type Department Care Team (Late st Contact Info) Description 10/09/2024 Telephone [facility] Surgery [address] [facility] Floor 8 [place] [address] Josie Calrke MD [address] [facility] [id number] [place] [address] Social History Tobacco Use Types Packs/Day Years Used Date Smoking Tobacco: Never Passive Smoke Exposure: Never Smokeless Tobacco: Never AUDIT-C Answer Date Recorded Q1: How often do you have a drink containing alcohol? Never 09/30/2024 Q2: How many drinks containi ng alcohol do you have on a typical day when you are drinking? Patient does not drink Q3: How often do you have si x or more drinks on one occasion? Never 09/30/2024 Personal Safety Answer Date Recorded Have you ever been in or are you currently in a harmful physical or emotional relationship or is someone making you feel afraid or unsafe? Denies 09/30/2024 Comments No Sex and Gender Information Value Date Recorded Sex Assigned at Not on file Legal Sex Female 12:10 AM CLINICAL SOCIAL WORK AIDE Gender Identity Not on file Sexual Orientation Not on file documented as of this encounter Miscellaneous Notes * Telephone Encounter - Denny Shi RMA - 10/09/2024 11:14 AM CDT Called and spoke to patient- informed patient to contact billing. * Telephone Encounter - Freedom Arias - 10/09/2024 10:48 AM CDT Patient Query: Was an attempt to transfer to the assigned clinical staff or backline? No Reason for call?: Janeen called to speak with someone in Dr. Clarke's office. She had spoken with her insurance after her surgery on Sunday, and they had said they would not cover her hospital stay as they had her down as an outpatient. She had spent two nights in the hospital after her surgery and was cleared to go home on . She would like a call back to help her get this worked out with her insurance, as otherwise they are telling her she will be liable for the cost of the hospital stay. Who is the caller: Janeen Woodward What is the best number for them to contact for a call back: [phone] Last office visit: 09/22/2024 Date of Surgery: 09/30/2024 documented in this encounter Plan of Treatment Not on file documented as of this encounter Visit Diagnoses Not on filedocumented in this encounter Care Teams Restorative Coordinator Relationship Specialty Start Date End Date Romie Laboy PA [address] [place] [address] PCP - General 12/06/16 documented as of this encounter
--- OUTSIDE RECORDS SUMMARY | 2024-10-14 17:03 | XMS_ITS | Encounter Summary ---
Author Organization [facility] Address [address] [facility] [address] [place] [address] Phone Care Team Providers Care Production Artist Name Role Phone Romie Laboy Primary Care Provider [phone] Reason for Visit * Reason Onset Date Comments Medical Question/Miscellaneous 09/22/2024 Encounter Details Date Type Department Care Team (Late st Contact Info) Description 09/22/2024 Telephone [facility] Surgery [address] [facility] Floor 8 [place] [address] Josie Clarke MD [address] [facility] [phone] [place] [address] Medical Question/Miscellaneous Social History Tobacco Use Types Packs/Day Years Used Date Smoking Tobacco: Never Smokeless Tobacco: Never AUDIT-C Answer Date Recorded Q1: How often do you have a drink containing alcohol? Never 09/25/2024 Q2: How many drinks containi ng alcohol do you have on a typical day when you are drinking? Patient does not drink Q3: How often do you have si x or more drinks on one occasion? Never 09/25/2024 Personal Safety Answer Date Recorded Have you ever been in or are you currently in a harmful physical or emotional relationship or is someone making you feel afraid or unsafe? Denies 09/25/2024 Comments No Sex and Gender Information Value Date Recorded Sex Assigned at Not on file Legal Sex Female 12:10 AM CERTIFIER Gender Identity Not on file Sexual Orientation Not on file documented as of this encounter Functional Status * Audit-C Score Answer Date of Assessment Author 0 09/25/2024 8:17 AM CDT Micky Sifuentes RN * Question Answer Date of Assessment Author Q1: How often do you have a drink containing alcohol? Never 09/25/2024 8:17 AM ANTONIOT Mariangel Sifuentes RN Q2: How many drinks containing alcohol do you have on a typical day when you are drinking? Patient does not drink 09/25/2024 8:17 AM CDT Mariangel Sifuentes RN Q3: How often do you have six or more drinks on one occasion? Never 09/25/2024 8:17 AM CDT Mariangel Sifuentes RN documented as of this encounter Miscellaneous Notes * Telephone Encounter - Denny Shi RMA - 09/22/2024 4:09 PM CDT Called and LM for patient regarding getting cpap appointment moved sooner. I will call and get patient a sooner appointment. I will try patient again in the morning. * Telephone Encounter - Radha Melchor - 09/22/2024 3:03 PM CDT Patient Query: Was an attempt to transfer to the assigned clinical staff or backline? No - Returning a message Sincere PRATT Reason for call?: Kade Vernon called to let Denny Cabrera MA know that she would definitely like the earlier surgery date. She wanted to know about the pre- surgery preparation that is scheduled for October 03 and if that will be scheduled before also. Who is the caller: Kade Vernon What is the best number for them to contact for a call back: [phone] documented in this encounter Plan of Treatment Not on file documented as of this encounter Visit Diagnoses Not on filedocumented in this encounter Care Teams Production Artist Relationship Specialty Start Date End Date Romie Laboy PA [address] [place] [address] PCP - General 12/06/16 documented as of this encounter
--- OUTSIDE RECORDS SUMMARY | 2024-10-14 17:03 | XMS_ITS | Referral Summary ---
Author Organization [facility] Address [address] [place] [address] Care Team Providers Care Crutch Maker Name Role Phone Romie Laboy Primary Care Provider [phone] Encounters Date Type Department Care Team Description 10/14/2024 Telephone [facility] Surgery [address] [place] [phone] Babs Lockhart RN 10/14/2024 Orders Only [facility] Surgery [address] [place] [phone] Babs Lockhart RN Papillary thyroid carcinoma (HCC) (Primary Dx) 10/14/2024 Telephone [facility] Surgery [address] [place] [phone] Babs Lockhart RN 10/14/2024 Telephone [facility] Surgery [address] [place] [phone] Josie Clarke MD Medical Question/Miscellaneou s 10/10/2024 Documentation [facility] Surgery [address] [place] [phone] Babs Lockhart RN 10/10/2024 1:45 PM CDT Clinical Support [facility] Surgery [address] [place] [phone] Josie Clarke MD Papillary thyroid carcinoma (HCC) (Primary Dx) 10/09/2024 Telephone [facility] Surgery [address] [place] [phone] Josie Clarke MD 09/30/2024 8:46 AM CDT - 10/02/2024 2:09 PM CDT Hospital Encounter [facility] 1 [facility] [address] Josie Clarke MD Thyroid cancer (HCC) Discharge Disposition: Discharge to home or self care 09/30/2024 9:22 AM CDT - 09/30/2024 11:59 PM CDT Hospital Encounter [facility] Radiology [facility] ([facility]) [address] [place] [address] Thyroid cancer (HCC) Discharge Disposition: Discharge to home or self care 09/30/2024 12:00 PM CDT - 09/30/2024 4:50 PM CDT Surgery [facility] Operating [facility] ([facility]) [address] [place] [address] Josie Clarke MD THYROIDECTOMY - TOTAL 09/30/2024 1:21 PM CDT Anesthesia Event [facility] Operating [facility] ([facility]) [address] [place] [address] Joss Guillaume MD Montgomery, Andrea J., NP 09/29/2024 Telephone [facility] Surgery [address] [place] [address] 5 [place] [address] Babs Lockhart RN 09/29/2024 Orders Only [facility] Surgery [address] [place] [address] 5 [place] [address] Babs Lockhart, EMELY Thyroid cancer (HCC) (Primary Dx) 09/25/2024 7:30 AM CDT Pre-Admission Testing [facility] Center for Preoperative Assessment and Planning [facility] ([facility]) [address] [place] [address] Preoperative testing (Primary Dx) 09/22/2024 Telephone [facility] Surgery [address] [place] [address] Floor 8 [place] [address] Josie Clarke MD Medical Question/Miscellaneou s 09/18/2024 Orders Only [facility] Surgery [address] [place] [phone] Babs Lockhart RN Lung nodules (Primary Dx); Thyroid nodule; Mediastinal lymphadenopathy 09/17/2024 Results Follow-Up [facility] Surgery [address] [place] [phone] Josie Clarke MD 09/16/2024 Orders Only [facility] Surgery [address] [place] [phone] Babs Lockhart RN Thyroid nodule (Primary Dx) 09/16/2024 Telephone [facility] Surgery [address] [place] [phone] Babs Lockhart RN 09/16/2024 1:30 PM CDT Office Visit [facility] Surgery [address] [place] [phone] Gloria Wylie MD Mediastinal lymphadenopathy (Primary Dx); Papillary thyroid carcinoma (HCC); Thyroid cancer (HCC); Morbid obesity (HCC); Type 2 diabetes mellitus with other specified complication, unspecified whether half-way insulin use (HCC) 09/15/2024 Telephone [facility] Surgery [address] [place] [address] 8 [place] [phone] Josie Clarke MD Medical Question/Miscellaneou s 09/11/2024 Telephone [facility] Surgery [address] [place] [phone] Josie Clarke MD Medical Question/Miscellaneou s 09/10/2024 Orders Only [facility] Surgery [address] [place] [phone] Josie Clarke MD Thyroid cancer (HCC) (Primary Dx) 09/10/2024 9:43 AM PRODUCT MANAGER MEDICAL DEVICE - 09/10/2024 11:59 PM PRODUCT MANAGER MEDICAL DEVICE Hospital Encounter [facility] ([facility]) [address] [place] [address] Discharge Disposition: Discharge to home or self care 09/10/2024 9:42 AM PRODUCT MANAGER [employer]ICAL DEVICE - 09/10/2024 11:59 PM PRODUCT MANAGER MEDICAL DEVICE Hospital Encounter [facility] ([facility]) [address] [place] [address] Thyroid cancer (HCC) Discharge Disposition: Discharge to home or self care 09/09/2024 8:40 AM PRODUCT MANAGER MEDICAL DEVICE Lab [facility] 1 [facility] 1st [place] [address] Thyroid cancer (HCC) 09/09/2024 8:36 AM PRODUCT MANAGER [employer]ICAL DEVICE - 09/09/2024 11:59 PM PRODUCT MANAGER MEDICAL DEVICE Hospital Encounter [facility] Radiology [address] [place] [address] Thyroid cancer (HCC) Discharge Disposition: Discharge to home or self care 09/08/2024 Orders Only [facility] Radiology [address] [place] [address] Arlene Amaro, EMELY Thyroid cancer (HCC) (Primary Dx) 09/08/2024 Documentation [facility] Advanced [facility] Radiation Oncology [address] [place] [address] Advanced [place] [address] Christelle Sanches RN 09/08/2024 11:00 AM PRODUCT MANAGER MEDICAL DEVICE - 09/08/2024 11:59 PM PRODUCT MANAGER MEDICAL DEVICE Hospital Encounter [facility] Radiology [address] [place] [address] Thyroid cancer (HCC) Discharge Disposition: Discharge to home or self care 09/08/2024 10:00 AM PRODUCT MANAGER MEDICAL DEVICE Office Visit [facility] Endocrinology Metabolism and Lipid [facility] Floor 1, [address] [place] [phone] Francisco Mccormick MD Papillary thyroid carcinoma (HCC) (Primary Dx); Thyroid cancer (HCC); Mediastinal lymphadenopathy; Lung nodules 09/04/2024 Telephone [facility] Radiology [address] [place] [address] Arlene Amaro, EMELY 09/04/2024 Telephone [facility] Radiology [address] [place] [address] Arlene Amaro, EMELY 09/03/2024 Orders Only [facility] Surgery [facility] Floor 5 [place] [address] Babs Lockhart RN Thyroid cancer (HCC) (Primary Dx) 09/01/2024 Telephone [facility] Surgery [address] [facility] Floor 5 [place] [address] Babs Lockhart RN 08/29/2024 Orders Only [facility] Surgery [facility] Floor 5 [place] [address] Josie Clarke MD Thyroid cancer (HCC) (Primary Dx) 08/29/2024 Orders Only [facility] Surgery [facility] Floor 5 [place] [address] Babs Lockhart RN Thyroid cancer (HCC) (Primary Dx) 08/29/2024 Orders Only [facility] Surgery [facility] Floor 5 [place] [address] Babs Lockhart RN Thyroid cancer (HCC) (Primary Dx) 08/29/2024 Orders Only [facility] Surgery [facility] Floor 5 [place] [address] Josie Clarke MD Thyroid cancer (HCC) (Primary Dx) 08/29/2024 Orders Only [facility] Surgery [facility] Floor 5 [place] [phone] Josie Clarke MD 08/29/2024 Telephone [facility] Endocrinology Metabolism and Lipid [address] [facility] 5th [place] [address] [place] [address] Priscila De La O RN 08/28/2024 Telephone [facility] Surgery [facility] Floor 8 [place] [address] Josie Clarke MD Medical Question/Miscellaneou s 08/28/2024 Telephone [facility] Surgery [facility] Floor 5 [place] [address] Babs Lockhart RN 08/27/2024 Telephone [facility] Surgery [address] [place] [address] Floor 8 [place] [address] Josie Clarke MD Medical Question/Miscellaneou s 08/26/2024 10:34 AM [facility] - 08/26/2024 11:59 PM PRODUCT MANAGER MEDICAL DEVICE Hospital Encounter [facility] ([facility]) [address] [place] [address] Thyroid nodule Discharge Disposition: Discharge to home or self care 08/26/2024 10:35 AM PRODUCT MANAGER MEDICAL DEVICE - 08/26/2024 11:59 PM PRODUCT MANAGER MEDICAL DEVICE Hospital Encounter [facility]) [address] [place] [address] Josie Clarke MD Thyroid nodule Discharge Disposition: Discharge to home or self care 08/25/2024 Telephone [facility] Surgery [facility] Floor 5 [place] [address] Babs Lockhart RN 08/25/2024 Telephone [facility] Radiology [address] [place] [address] Swapna Segovia RN 08/25/2024 Telephone [facility] Surgery [facility] Floor 8 [place] [phone] Josie Clarke Scheduling Testing/Treatment 08/25/2024 Telephone [facility] Radiology [address] [place] [address] Swapna Segovia RN 08/25/2024 Telephone [facility] Radiology [address] [place] [address] Swapna Segovia RN 08/25/2024 Orders Only [facility] Surgery [facility] Floor 5 [place] [phone] Babs Lockhart RN Thyroid nodule 08/22/2024 4:23 PM PRODUCT MANAGER [employer]ICAL DEVICE - 08/22/2024 11:59 PM PRODUCT MANAGER MEDICAL DEVICE Hospital Encounter [facility] ([facility]) [address] [place] [address] Diagnosis unknown Discharge Disposition: Discharge to home or self care 08/22/2024 3:59 PM PRODUCT MANAGER MEDICAL DEVICE - 08/22/2024 11:59 PM PRODUCT MANAGER MEDICAL DEVICE Hospital Encounter [facility]) [address] [place] [address] Diagnosis unknown Discharge Disposition: Discharge to home or self care 08/22/2024 2:00 PM PRODUCT MANAGER MEDICAL DEVICE Lab [facility] - Lab Collection [address] [place] [address] Floor 5 [place] [address] Thyroid nodule; Hx of thyroid nodule 08/22/2024 1:30 PM PRODUCT MANAGER MEDICAL DEVICE Therapy [facility] Otolaryngology [address] [place] [address] 5 [place] [phone] Karen Rosales SLP Dysphonia (Primary Dx); Thyroid nodule; Muscle tension dysphonia 08/22/2024 Telephone [facility] Radiology [address] [place] [address] So Ashley RN 08/22/2024 Orders Only [facility] Surgery [address] [place] [address] 5 [place] [address] Babs Lockhart RN Thyroid nodule (Primary Dx) 08/22/2024 Orders Only [facility] Surgery [address] [place] [address] 5 [place] [address] Babs Lockhart RN Thyroid nodule (Primary Dx) 08/22/2024 8:22 AM PRODUCT MANAGER MEDICAL DEVICE - 08/22/2024 11:59 PM PRODUCT MANAGER MEDICAL DEVICE Hospital Encounter [facility] Radiology [address] [place] [address] Thyroid nodule Discharge Disposition: Discharge to home or self care 08/22/2024 1:00 PM PRODUCT MANAGER MEDICAL DEVICE Office Visit [facility] Surgery [address] [place] [address] 5 [place] [phone] Josie Clarke MD Thyroid nodule; Hx of thyroid nodule 08/18/2024 Telephone [facility] Surgery [address] [place] [address] Floor 8 [place] [phone] Josie Clarke MD Medical Question/Miscellaneou s 08/18/2024 Telephone [facility] Surgery [address] [place] [address] 5 [place] [address] Denny Shi, Lucina 08/11/2024 Orders Only [facility] Surgery [address] [place] [address] 5 [place] [address] Josie Clarke MD Thyroid nodule (Primary Dx) 08/07/2024 Telephone [facility] [address] [place] [address] Referral, Self Appointment Request 08/06/2024 Telephone [facility] [address] [place] [address] Bree Hong RN Appointment/Schedules 07/28/2024 1:00 PM PRODUCT MANAGER MEDICAL DEVICE Office Visit [facility] Pulmonary at [address] [place] [address] Henry Lowe MD Thyroid nodule (Primary Dx); Mediastinal lymphadenopathy from Last 3 Months Allergies Active Allergy Reactions Criticality Noted Date Comments Amoxicillin Shortness of breath,Rash High Penicillins Shortness of breath,Rash High Sulfamethoxazole-Trimethopri m Hives Medium 08/22/2024 Bactrim Tetracycline Rash,Vomiting Medium Medications multivitamin capsule 0 0 11/25/19 15 Active lisinopril (PRINIVIL,ZEST RIL) 20 mg tablet Take 1 tablet (20 mg total) by mouth every morning 3 03/25/20 18 Active albuterol HFA (PROVENTIL HFA,VENTOLIN HFA,PROAIR HFA) 90 mcg/actuation inhaler Inhale 2 puffs every 6 (six) hours as needed for wheezing or shortness of breath 11/09/19 22 Active escitalopram (LEXAPRO) 20 mg tablet Take 1 tablet (20 mg total) by mouth every morning 12/17/19 22 Active melatonin 10 mg tablet Take 1 tablet (10 mg total) by mouth nightly Active ALPRAZolam (XANAX) 1 mg tablet Take 1 tablet (1 mg total) by mouth nightly as needed for anxiety 02/16/20 22 Active amLODIPine (NORVASC) 10 mg tablet Take 1 tablet (10 mg total) by mouth every morning 02/16/20 22 Active celecoxib (CeleBREX) 200 mg capsule Take 1 capsule (200 mg total) by mouth every morning 02/16/20 22 Active famotidine (PEPCID) 40 mg tablet Take 1 tablet (40 mg total) by mouth every morning 02/16/20 22 Active docusate sodium (COLACE) 100 mg capsule Take 1 capsule (100 mg total) by mouth 2 (two) times a day as needed for constipation 60 capsule 04/26/20 22 Active hydroCHLOROthi azide (HYDRODIURIL) 25 mg tablet Take 1 tablet (25 mg total) by mouth every morning 01/05/20 23 Active ibuprofen (ADVIL,MOTRIN) 800 mg tabletIndicati ons:Anti-infla mmatory,Pain Take 1 tablet (800 mg total) by mouth every 8 (eight) hours as needed for pain Takes nightly Active clobetasoL (TEMOVATE) 0.05 % external solution Apply 1 Application topically as needed (scalp) 02/28/20 23 Active traMADoL (ULTRAM) 50 mg tabletIndicati ons:Pain Take 1 tablet (50 mg total) by mouth every 6 (six) hours as needed for pain 03/15/20 23 Active butalbital-anabel taminophen-caf feine (ESGIC) 50-325-40 mg per tablet Take 1 tablet by mouth every 6 (six) hours as needed for migraine 07/21/19 25 Active cholecalcifero l (VITAMIN D-3) 2000 unit capsule Take 1 capsule (2,000 Units total) by mouth every morning Active cyanocobalamin (Vitamin B-12) 500 mcg tablet Take 1 tablet (500 mcg total) by mouth every morning Active calcium carbonate (OS-RA) 1,250 mg (500 mg elemental) tabletIndicati ons:hypocalcem ia Take 1 tablet (1,250 mg total) by mouth every 8 (eight) hours 90 tablet 10/03/19 25 025 Active levothyroxine (SYNTHROID) 175 mcg tabletIndicati ons:hypothyroi dism Take 1 tablet (175 mcg total) by mouth early childhood assistant before breakfast 30 tablet 1 10/03/19 25 025 Active oxyCODONE (ROXICODONE) 5 mg immediate release tabletIndicati ons:Pain Take 1 tablet (5 mg total) by mouth every 4 (four) hours as needed for pain for up to 12 doses 12 tablet 10/03/19 25 Active calcitRIOL (ROCALTROL) 0.25 mcg capsuleIndicat ions:hypocalce jamari Take 1 capsule (0.25 mcg total) by mouth 2 (two) times a day 60 capsule 11 10/03/19 25 026 Active caffeine 200 mg tablet Take 1 tablet (200 mg total) by mouth daily 025 Discontin ued(Error ) acetaminophen (TYLENOL) 500 mg tablet Take 2 tablets (1,000 mg total) by mouth every 8 (eight) hours as needed for pain for up to 20 doses 40 tablet 04/26/20 22 025 Discontin ued(Error ) oxyCODONE (ROXICODONE) 5 mg immediate release tabletIndicati ons:Pain Take 1 tablet (5 mg total) by mouth every 8 (eight) hours as needed for pain (Severe, breakthrough pain) 9 tablet 04/26/20 22 025 Discontin ued(Error ) tacrolimus (PROTOPIC) 0.1 % ointment APPLY 1-2 TIMES PER DAY TO PSORIASIS IN THE FOLDS OF THE SKIN WHEN FLARED 02/28/20 23 025 Discontin ued(Error ) mupirocin (BACTROBAN) 2 % ointment APPLY A SMALL AMOUNT TO AFFECTED AREA 3 TIMES A DAY 06/17/20 24 025 Discontin ued(Error ) Mounjaro 7.5 mg/0.5 mL pen injector INJECT 0.5 ML SUBCUTANEOUSLY WEEKLY 025 Discontin ued(Error ) ciprofloxacin (CIPRO) 500 mg tablet Take 1 tablet (500 mg total) by mouth Discontin ued(Thera py completed ) levothyroxine (SYNTHROID) 175 mcg tablet Take 1 tablet (175 mcg total) by mouth daily 30 tablet 1 09/09/19 25 025 Discontin ued(Stop Taking at Discharge ) Active Problems Patient Care Coordination No te Formatting of this note migh t be different from the original. This is a 58-year-old female presenting to us at the request of Dr. Josie Clarke for an evaluation of mediastinal adenopathy and pulmonary nodules. She has a medical history significant for anxiety, asthma, CVA, depression, GERD, gout and hypertension. She is a never smoker. She has a new diagnosis of papillary thyroid cancer. Thyroid nodules and cervical lymphadenopathy concerning for thyroid cancer were initially found on a head CT after she had a fall. She underwent an ultrasound of the thyroid with findings suspicious for multifocal papillary thyroid carcinoma involving the right and left thyroid lobes, with diffuse involvement of the right thyroid lobe and suspicion for gross extrathyroidal extension posterior to the thyroid in the right. Right cervical lymphadenopathy involved levels 2, 3, 4, 5A and 5B with imaging features consistent with metastatic sandro disease. She underwent an FNA that was positive for papillary thyroid cancer. She has lost 125 lb in the last 7 months however that coincides with the initiation of Mounjaro. She has also had a previous gastric bypass 8 years ago. She feels very weak and fatigued. She underwent a chest CT on 08/26/2024. 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 For reference a 0.4 cm pulmonary nodule in the left lower lobe and a 0.4 cm pulmonary nodule near the fissure in the right lower lobe. No pneumothorax or pleural effusion. Multiple hypoattenuating right thyroid nodules better evaluated on prior thyroid ultrasound, for reference right thyroid nodule measuring up to 1.5 x 1.3 cm. A right paratracheal lymph node measuring up to 1.0 cm. Hypoattenuating mediastinal lymph nodes, for reference a prevascular lymph node measuring 1.0 cm in short axis. Heart size is normal. No pericardial effusion. 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 No suspicious osseous lesions. She underwent a PET scan on 09/10/2024. This showed diffuse marked hypermetabolism throughout the thyroid gland compatible with known primary thyroid malignancy. There is a exophytic component to the contour and uptake in the posterior right thyroid lobe in keeping with known extrathyroidal extension. Markedly FDG avid right neck lymph nodes and multiple lymph node stations level 2, 3, 4, 5 and 1 at level 6 most compatible with sandro metastatic disease. Moderately FDG avid anterior mediastinal lymph node, left internal mammary lymph node and right paratracheal lymph node also compatible with sandro metastatic disease. Several tiny nodules throughout both lungs 2 small to be characterized. Diffuse heterogeneous marrow metabolic activity without discrete focal lesions above background. Findings may represent physiologic bone marrow response to anemia. She is here for further surgical evaluation and discussion. Problem Noted Date Diagnosed Date Thyroid cancer 09/18/2024 Morbid obesity 09/16/2024 Type 2 diabetes mellitus wit h other specified complication, unspecified whether half-way insulin use 09/16/2024 Papillary thyroid carcinoma 09/08/2024 Assessment & Plan (09/08/2024 3:25 PM PRODUCT MANAGER MEDICAL DEVICE): PET scan scheduled for 09/10/24. Refer to COREY treatment after surgery given the extend of neck disease and possible distant metastasis Thyroid replacement after surgery with goal TSH suppression. Prescribed 175 mcg of levothyroxine to be started AFTER total thyroidectomy (when advised by MD). Discuss further monitoring and surveillance with tumor markers, iodine scan and image Mediastinal lymphadenopathy 09/08/2024 Lung nodules 09/08/2024 Chest pain 02/21/2023 Coronary artery disease invo lving [place] coronary artery of [place] heart 01/26/2023 Calculus of gallbladder with out cholecystitis without obstruction 01/04/2022 Overview (01/04/2022): Added automatically from request for surgery [id number] Incisional hernia, without obstruction or gangre ne 01/04/2022 Overview (01/04/2022): Added automatically from request for surgery [id number] Immunizations Immunization Administration Dates Next Due Influenza, Quadrivalent, Michelle l Culture-based MDCK, Preservative Free, Antibiotic Free, Intramuscular 06/03/2019 Influenza, Quadrivalent, Split, Intramuscular Influenza, Quadrivalent, Spl it, Preservative Free, Intramuscular 05/07/2021,05/03/2020 Influenza, Trivalent, Preservative Free, Intramu scular 04/05/2024 ZOSTER Recombinant 04/05/2024,12/05/2023 Social History Tobacco Use Types Packs/Day Years Used Date Smoking Tobacco: Never Passive Smoke Exposure: Never Smokeless Tobacco: Never Tobacco Cessation:Counseling Given: Not Answered AUDIT-C Answer Date Recorded Q1: How often [...] on file Legal Sex Female 12:10 AM PRODUCT MANAGER MEDICAL DEVICE Gender Identity Not on file Sexual Orientation Not on file Last Filed Vital Signs Vital Sign Reading Time Taken Comments Blood Pressure 115/66 10/10/2024 1:35 PM CDT Pulse 80 10/10/2024 1:35 PM CDT Temperature 36.8 C (98.2 F) 10/10/2024 1:35 PM CDT Respiratory Rate 16 10/10/2024 1:35 PM CDT Oxygen Saturation 100% 10/10/2024 1:35 PM CDT Inhaled Oxygen Concentration - - Weight 118.9 kg (262 lb 3.2 oz) 10/10/2024 1:35 PM CDT Height 160 cm (5' 2.99 ) 10/10/2024 1:35 PM CDT Body Mass Index 46.46 10/10/2024 1:35 PM CDT Plan of Treatment Not on file Medical Devices Implanted Type Area Cut Out Worker Device Identifier Shelf Expiration Date Model / Serial / Lot [employer] Angio-Seal Vip 6fr Closere Device [id number] - [id number] Implanted:Qty: 1 on 02/21/2023 by Neno Carvajal MD at [facility] [employer] 09/06/2023 [id number] / / [id number] Procedures Procedure Name Priority Date/Time Associated Diagnosis Comments POCT GLUCOSE DEVICE Routine 10/02/2024 1 1:48 AM CDT POCT GLUCOSE DEVICE Routine 10/02/2024 7 :26 AM CDT EGFR Routine 10/01/2024 10:14 PM CDT PTH Routine 10/01/2024 10:14 PM CDT BASIC METABOLIC PANEL Routine 10/01/2024 10:14 PM CDT POCT GLUCOSE DEVICE Routine 10/01/2024 7 :38 PM CDT POCT GLUCOSE DEVICE Routine 10/01/2024 5 :30 PM CDT EGFR Routine 10/01/2024 1:15 PM CDT VITAMIN B12 Routine 10/01/2024 1:15 PM CDT VITAMIN D 25 HYDROXY Routine 10/01/2024 1:15 PM CDT BASIC METABOLIC PANEL Routine 10/01/2024 1:15 PM CDT CALCIUM, IONIZED Timed 10/01/2024 1:15 PM CDT PTH Timed 10/01/2024 1:15 PM CDT POCT GLUCOSE DEVICE Routine 10/01/2024 1 2:28 PM CDT POCT GLUCOSE DEVICE Routine 10/01/2024 8 :26 AM CDT EGFR Routine 10/01/2024 6:03 AM CDT CALCIUM, IONIZED Routine 10/01/2024 6:03 AM CDT PTH Routine 10/01/2024 6:03 AM CDT BASIC METABOLIC PANEL Routine 10/01/2024 6:03 AM CDT POCT GLUCOSE DEVICE Routine 09/30/2024 1 1:20 PM CDT EGFR Routine 09/30/2024 11:14 PM CDT PTH Routine 09/30/2024 11:14 PM CDT CALCIUM, IONIZED Routine 09/30/2024 11:1 4 PM CDT BASIC METABOLIC PANEL Routine 09/30/2024 11:14 PM CDT POCT GLUCOSE DEVICE Routine 09/30/2024 9 :15 PM CDT NV AN PROCEDURE PLACEHOLDER Routine 09/30/2024 5:42 PM CDT POCT GLUCOSE DEVICE Routine 09/30/2024 5 :02 PM CDT SURGICAL PATHOLOGY Routine 09/30/2024 3: 30 PM CDT Thyroid cancer (HCC) POCT GLUCOSE DEVICE Routine 09/30/2024 2 :50 PM CDT NV AN PROCEDURE PLACEHOLDER Routine 09/30/2024 2:00 PM CDT NV AN ELECTIVE ENDOTRACHEAL AIRWAY Routine 09/30/2024 2:00 PM CDT DISSECTION NECK - BILATERAL 09/30/2024 1:21 PM CDT Thyroid cancer (HCC) Case Notes 09/18@1317: Sent case msg to [employer] to see if she is waiting on block release. SR Special Needs NIMs THYROIDECTOMY - TOTAL 09/30/2024 1:21 PM CDT Thyroid cancer (HCC) Case Notes 09/18@1317: Sent case msg to [employer] to see if she is waiting on block release. SR Special Needs NIMs POCT GLUCOSE DEVICE Routine 09/30/2024 1 2:36 PM CDT US SOFT TISSUE NECK Schedule Routine, Read Routine (OP Routine) 09/30/2024 11:15 AM CDT Thyroid cancer (HCC) TYPE AND SCREEN 14 DAY Routine 09/25/2024 9:37 AM CDT Preoperative testing POCT HEMOGLOBIN A1C Routine 09/25/2024 8 :23 AM CDT ECG 12-LEAD Routine 09/25/2024 8:11 AM CDT Preoperative testing PET/CT FDG SKULL TO THIGH Schedule Routine, Read Routine (OP Routine) 09/10/2024 1:10 PM PRODUCT MANAGER MEDICAL DEVICE Thyroid cancer (HCC) NM THYROGEN INJECTION Schedule Routine, Read Routine (OP Routine) 09/09/2024 9:33 AM PRODUCT MANAGER MEDICAL DEVICE Thyroid cancer (HCC) TSH Routine 09/09/2024 8:38 AM PRODUCT MANAGER MEDICAL DEVICE Thyroid cancer (HCC) NM THYROGEN INJECTION Schedule Routine, Read Routine (OP Routine) 09/08/2024 11:49 AM PRODUCT MANAGER MEDICAL DEVICE Thyroid cancer (HCC) CT CHEST W CONTRAST Schedule Routine, Read Routine (OP Routine) 08/26/2024 1:06 PM PRODUCT MANAGER MEDICAL DEVICE Thyroid nodule CT SOFT TISSUE NECK W CONTRAST Schedule Routine, Read Routine (OP Routine) 08/26/2024 1:06 PM PRODUCT MANAGER MEDICAL DEVICE Thyroid nodule US GUIDED THYROID FINE NEEDLE ASPIRATION 1ST LESION Routine 08/26/2024 12:10 PM PRODUCT MANAGER MEDICAL DEVICE Thyroid nodule CYTOLOGY Routine 08/26/2024 12:00 AM PRODUCT MANAGER MEDICAL DEVICE Thyroid nodule NEURO CT OUTSIDE CONSULT Routine 08/22/2024 4:23 PM PRODUCT MANAGER MEDICAL DEVICE Diagnosis unknown NEURO CT OUTSIDE CONSULT Routine 08/22/2024 3:59 PM PRODUCT MANAGER MEDICAL DEVICE Diagnosis unknown EGFR Routine 08/22/2024 2:38 PM PRODUCT MANAGER MEDICAL DEVICE Thyroid nodule CBC WITHOUT DIFFERENTIAL Routine 08/22/2024 2:38 PM PRODUCT MANAGER MEDICAL DEVICE Thyroid nodule COMPREHENSIVE METABOLIC PANEL Routine 08/22/2024 2:38 PM PRODUCT MANAGER MEDICAL DEVICE Thyroid nodule PROTIME-INR Routine 08/22/2024 2:38 PM PRODUCT MANAGER MEDICAL DEVICE Thyroid nodule Hx of thyroid nodule TSH Routine 08/22/2024 2:38 PM PRODUCT MANAGER MEDICAL DEVICE Thyroid nodule Hx of thyroid nodule US THYROID Schedule Routine, Read Routine (OP Routine) 08/22/2024 9:59 AM PRODUCT MANAGER MEDICAL DEVICE Thyroid nodule SCREENING MAMMOGRAM BILATERAL W BOB Schedule Routine, Read Routine (OP Routine) 07/14/2021 8:39 AM PRODUCT MANAGER MEDICAL DEVICE Encounter for screening mammogram for malignant neoplasm of breast LIPID PANEL Routine 11/12/2019 11:33 AM CDT from Last 3 Months or Most Recently Relevant to Health Maintenance Results * POCT glucose (10/02/2024 11:48 AM CDT) Glucose, POC 131 70 - 199 mg/dL Blood 10/02/2024 11:4 8 AM CDT 10/02/2024 11:48 AM CDT us Josie Clarke MD LAB POCT ORDERABLES - DEVICE Fin al Result Performing Organization Address City/[facility] Co de Phone Number [facility] Department [place] [employer] [place] [address] * POCT glucose (10/02/2024 7:26 AM CDT) Glucose, POC 97 70 - 199 mg/dL Blood 10/02/2024 7:26 AM CDT 10/02/2024 7:26 AM CDT us Josie Clarke MD LAB POCT ORDERABLES - DEVICE Fin al Result Performing Organization Address [facility] Co de Phone Number [facility] Department [place] [place] [address] * (ABNORMAL) eGFR (10/01/2024 10:14 PM CDT) eGFR 42(L) >=60 mL/min/1. 73 m2 Comment: Interpretive Data Reference Interval Normal >/= 90 mL/min/1.73m2 Mildly decreased* 60 - 89 mL/min/1.73m2 Mildly to moderately decreased 45 - 59 mL/min/1.73m2 Moderately to severely decreased 30 - 44 mL/min/1.73m2 Severely decreased 15 - 29 mL/min/1.73m2 Kidney Failure < 15 mL/min/1.73m2 *Relative to young adult level Estimated glomerular filtration rate is determined by the 2020 CKD-EPI equation recommended by the National Kidney Foundation (A Unifying Approach to GFR Estimation: Recommendations of the NKF-ASK Task Force on Reassessing the Inclusion of Race in Diagnosing Kidney Disease, JASN 2020). The CKD-EPI equation should not be used for patients with unstable renal function and has not been validated in children and those over 70. Current interpretive data was last reviewed 2021. Blood 10/01/2024 10:1 4 PM CDT 10/01/2024 10:54 PM CDT us Josie Clarke MD LAB BLOOD ORDERABLES Final Resul t Performing Organization Address City/[facility]/ZIP Co de Phone Number [facility] Department [place] [address] * PTH (10/01/2024 10:14 PM CDT) Pathologist [facility] PTH 15 15 - 65 pg/mL Blood 10/01/2024 10:1 4 PM CDT 10/01/2024 10:54 PM CDT us Josie Clarke MD LAB BLOOD ORDERABLES Final Resul t Performing Organization Address City/[facility] Co de Phone Number [facility] [place] [address] * (ABNORMAL) Basic metabolic panel (10/01/2024 10:14 PM CDT) Pathologist [facility] Sodium 142 135 - 145 mmol/L Potassium, pl 4.1 3.3 - 4.9 mmol/L [facility] Chloride 110 97 - 110 mmol/L [facility] CO2 24 22 - 32 mmol/L [facility] Anion gap 8 2 - 15 mmol/L [facility] BUN 32(H) 6 - 25 mg/dL [facility] Creatinine 1.45(H) 0.60 - 1.10 mg/dL [facility] Glucose 149 70 - 199 mg/dL [facility] Comment: Interpretive Data Fasting glucose >/= 126 mg/dl is diagnostic for diabetes. Fasting is defined as no caloric intake for at least 8 hours. Fasting glucose between 100 mg/dl to 125 mg/dl is diagnostic of prediabetes. In a patient with classic symptoms of hyperglycemia or hyperglycemic crisis, a random glucose >/= 200 mg/dl is diagnostic for diabetes. In the absence of unequivocal hyperglycemia, results should be confirmed by repeat testing. The classification and Diagnosis of Diabetes Diabetes Care 2021; 46: S19-S40. Current interpretive data was last revised 2022. Calcium 7.8(L) 8.5 - 10.3 mg/dL [facility] Blood 10/01/2024 10:1 4 PM CDT 10/01/2024 10:54 PM CDT us Josie Clarke MD LAB BLOOD ORDERABLES Final Resul t Performing Organization Address [facility] de Phone Number [facility] Department [place] [address] * POCT glucose (10/01/2024 7:38 PM CDT) Glucose, POC 143 70 - 199 mg/dL Blood 10/01/2024 7:38 PM CDT 10/01/2024 7:38 PM CDT Result [facility] us Josie Clarke MD LAB POCT ORDERABLES - DEVICE Fin al Result Performing Organization Address [facility] de Phone Number [facility] Department [place] [address] * POCT glucose (10/01/2024 5:30 PM CDT) Glucose, POC 160 70 - 199 mg/dL Blood 10/01/2024 5:30 PM CDT 10/01/2024 5:30 PM CDT us Josie Clarke MD LAB POCT ORDERABLES - DEVICE Fin al Result [facility] [place] [address] * (ABNORMAL) eGFR (10/01/2024 1:15 PM CDT) eGFR 46(L) >=60 mL/min/1. 73 m2 Comment: Interpretive Data Reference Interval Normal >/= 90 mL/min/1.73m2 Mildly decreased* 60 - 89 mL/min/1.73m2 Mildly to moderately decreased 45 - 59 mL/min/1.73m2 Moderately to severely decreased 30 - 44 mL/min/1.73m2 Severely decreased 15 - 29 mL/min/1.73m2 Kidney Failure < 15 mL/min/1.73m2 *Relative to young adult level Estimated glomerular filtration rate is determined by the 2020 CKD-EPI equation recommended by the National Kidney Foundation (A Unifying Approach to GFR Estimation: Recommendations of the NKF-ASK Task Force on Reassessing the Inclusion of Race in Diagnosing Kidney Disease, JASN 2020). The CKD-EPI equation should not be used for patients with unstable renal function and has not been validated in children and those over 70. Current interpretive data was last reviewed 2021. Blood 10/01/2024 1:15 PM CDT 10/01/2024 1:59 PM CDT us Josie Clarke MD LAB BLOOD ORDERABLES Final Resul t Performing Organization Address [facility]/ZIP Co de Phone Number [facility] [place] [address] * (ABNORMAL) Calcium, ionized (10/01/2024 1:15 PM CDT) Calcium, Ionized 4.49(L) 4.50 - 5.10 mg/dL Blood 10/01/2024 1:15 PM CDT 10/01/2024 1:56 PM CDT us Josie Clarke MD LAB BLOOD [place] [address] * Vitamin D 25 hydroxy (10/01/2024 1:15 PM CDT) Pathologist [facility] Vitamin D 25-OH 33 30 - 80 ng/mL Blood 10/01/2024 1:15 PM CDT 10/01/2024 1:59 PM CDT us Josie Clarke MD LAB BLOOD ORDERABLES Final Resul t Performing Organization Address City/[facility] [place] [address] * PTH (10/01/2024 1:15 PM CDT) [facility] PTH 18 15 - 65 pg/mL Blood 10/01/2024 1:15 PM CDT 10/01/2024 1:59 PM CDT us Josie Clarke MD LAB BLOOD ORDERABLES Final Resul t Performing Organization Address City/[facility] Co de Phone Number [facility] [place] [address] * Vitamin B12 (10/01/2024 1:15 PM CDT) [facility] Vitamin B12 399 230 - 1,250 pg/mL Blood 10/01/2024 1:15 PM CDT 10/01/2024 1:59 PM CDT us Josie Clarke MD LAB BLOOD ORDERABLES Final Resul t Performing Organization Address City/[facility]/[place] [address] * (ABNORMAL) Basic metabolic panel (10/01/2024 1:15 PM CDT) [facility] Sodium 141 135 - 145 mmol/L Potassium, pl 3.9 3.3 - 4.9 mmol/L [facility] Chloride 105 97 - 110 mmol/L [facility] CO2 25 22 - 32 mmol/L [facility] Anion gap 11 2 - 15 mmol/L [facility] BUN 26(H) 6 - 25 mg/dL [facility] Creatinine 1.33(H) 0.60 - 1.10 mg/dL [facility] Glucose 156 70 - 199 mg/dL [facility] Comment: Interpretive Data Fasting glucose >/= 126 mg/dl is diagnostic for diabetes. Fasting is defined as no caloric intake for at least 8 hours. Fasting glucose between 100 mg/dl to 125 mg/dl is diagnostic of prediabetes. In a patient with classic symptoms of hyperglycemia or hyperglycemic crisis, a random glucose >/= 200 mg/dl is diagnostic for diabetes. In the absence of unequivocal hyperglycemia, results should be confirmed by repeat testing. The classification and Diagnosis of Diabetes Diabetes Care 202; 46: S19-S40. Current interpretive data was last revised 2022. Calcium 8.3(L) 8.5 - 10.3 mg/dL [facility] Blood 10/01/2024 1:15 PM CDT 10/01/2024 1:59 PM CDT us Josie Clarke MD LAB BLOOD ORDERABLES Final Resul t Performing Organization Address City/[facility]/ZIP Co de Phone Number [facility] Department [place] [place] [address] * (ABNORMAL) POCT glucose (10/01/2024 12:28 PM CDT) [facility] Signature Glucose, POC 210(H) 70 - 199 mg/dL Blood 10/01/2024 12:2 8 PM CDT 10/01/2024 12:28 PM CDT us Josie Clarke MD LAB POCT ORDERABLES - DEVICE Fin al Result Performing Organization Address City/[facility]/ZIP Co de Phone Number [facility] Department [place] [address] * POCT glucose (10/01/2024 8:26 AM CDT) Glucose, POC 167 70 - 199 mg/dL Blood 10/01/2024 8:26 AM CDT 10/01/2024 8:26 AM CDT us Josie Clarke MD LAB POCT ORDERABLES - DEVICE Fin al Result Performing Organization Address City/[facility] Co de Phone Number [facility] [place] [employer] [place] [address] * (ABNORMAL) eGFR (10/01/2024 6:03 AM CDT) eGFR 47(L) >=60 mL/min/1. 73 m2 Comment: Interpretive Data Reference Interval Normal >/= 90 mL/min/1.73m2 Mildly decreased* 60 - 89 mL/min/1.73m2 Mildly to moderately decreased 45 - 59 mL/min/1.73m2 Moderately to severely decreased 30 - 44 mL/min/1.73m2 Severely decreased 15 - 29 mL/min/1.73m2 Kidney Failure < 15 mL/min/1.73m2 *Relative to young adult level Estimated glomerular filtration rate is determined by the 2020 CKD-EPI equation recommended by the National Kidney Foundation (A Unifying Approach to GFR Estimation: Recommendations of the NKF-ASK Task Force on Reassessing the Inclusion of Race in Diagnosing Kidney Disease, JASN 2020). The CKD-EPI equation should not be used for patients with unstable renal function and has not been validated in children and those over 70. Current interpretive data was last reviewed 2021. Blood 10/01/2024 6:03 AM CDT 10/01/2024 6:17 AM CDT us Josie Clarke MD LAB BLOOD ORDERABLES Final Resul t Performing Organization Address City/[facility]/ZIP Co de Phone Number [facility] Department [place] [place] [address] * (ABNORMAL) Calcium, ionized (10/01/2024 6:03 AM CDT) [facility] Calcium, Ionized 4.21(L) 4.50 - 5.10 mg/dL Blood 10/01/2024 6:03 AM CDT 10/01/2024 6:17 AM CDT us Josie Clarke MD LAB BLOOD ORDERABLES Final Resul t Performing Organization Address [facility]/ZIP Co de Phone Number [facility] Department [place] [address] * (ABNORMAL) PTH (10/01/2024 6:03 AM CDT) [facility] PTH 8(L) 15 - 65 pg/mL Blood 10/01/2024 6:03 AM CDT 10/01/2024 6:18 AM CDT us Josie Clarke MD LAB BLOOD ORDERABLES Final Resul t Performing Organization Address [facility] de Phone Number [facility] Department [place] [address] * (ABNORMAL) Basic metabolic panel (10/01/2024 6:03 AM CDT) [facility] Sodium 141 135 - 145 mmol/L Potassium, pl 4.6 3.3 - 4.9 mmol/L [facility] Chloride 108 97 - 110 mmol/L [facility] CO2 25 22 - 32 mmol/L [facility] Anion gap 8 2 - 15 mmol/L [facility] BUN 28(H) 6 - 25 mg/dL [facility] Creatinine 1.32(H) 0.60 - 1.10 mg/dL [facility] Glucose 143 70 - 199 mg/dL [facility] Comment: Interpretive Data Fasting glucose >/= 126 mg/dl is diagnostic for diabetes. Fasting is defined as no caloric intake for at least 8 hours. Fasting glucose between 100 mg/dl to 125 mg/dl is diagnostic of prediabetes. In a patient with classic symptoms of hyperglycemia or hyperglycemic crisis, a random glucose >/= 200 mg/dl is diagnostic for diabetes. In the absence of unequivocal hyperglycemia, results should be confirmed by repeat testing. The classification and Diagnosis of Diabetes Diabetes Care 2021; 46: S19-S40. Current interpretive data was last revised 2022. Calcium 8.4(L) 8.5 - 10.3 mg/dL [facility] Blood 10/01/2024 6:03 AM CDT 10/01/2024 6:17 AM CDT Narrative [facility] - 10/01/2024 6:39 AM CDT Begin after renal function panel us Josie Clarke MD LAB BLOOD ORDERABLES Final Resul t [facility] Department [place] [address] * (ABNORMAL) POCT glucose (09/30/2024 11:20 PM CDT) Glucose, POC 250(H) 70 - 199 mg/dL Blood 09/30/2024 11:2 0 PM CDT 09/30/2024 11:20 PM CDT us Josie lCarke MD LAB POCT ORDERABLES - DEVICE Fin al Result Performing Organization Address City/[facility] Co de Phone Number [facility] Department [place] [address] * (ABNORMAL) eGFR (09/30/2024 11:14 PM CDT) eGFR 51(L) >=60 mL/min/1. 73 m2 Comment: Interpretive Data Reference Interval Normal >/= 90 mL/min/1.73m2 Mildly decreased* 60 - 89 mL/min/1.73m2 Mildly to moderately decreased 45 - 59 mL/min/1.73m2 Moderately to severely decreased 30 - 44 mL/min/1.73m2 Severely decreased 15 - 29 mL/min/1.73m2 Kidney Failure < 15 mL/min/1.73m2 *Relative to young adult level Estimated glomerular filtration rate is determined by the 2020 CKD-EPI equation recommended by the National Kidney Foundation (A Unifying Approach to GFR Estimation: Recommendations of the NKF-ASK Task Force on Reassessing the Inclusion of Race in Diagnosing Kidney Disease, JASN 2020). The CKD-EPI equation should not be used for patients with unstable renal function and has not been validated in children and those over 70. Current interpretive data was last reviewed 2021. Blood 09/30/2024 11:1 4 PM CDT 09/30/2024 11:53 PM CDT us Josie Clarke MD LAB BLOOD ORDERABLES Final Resul t Performing Organization Address City/[facility] Co de Phone Number [facility] [place] [employer] [place] [address] * (ABNORMAL) Calcium, ionized (09/30/2024 11:14 PM CDT) Calcium, Ionized 4.35(L) 4.50 - 5.10 mg/dL Blood 09/30/2024 11:1 4 PM CDT 09/30/2024 11:49 PM CDT Result Mary Carmen Clarke MD LAB BLOOD ORDERABLES Final Resul t Performing Organization Address [facility] Co de Phone Number [facility] Department [place] [address] * (ABNORMAL) PTH (09/30/2024 11:14 PM CDT) PTH 11(L) 15 - 65 pg/mL Blood 09/30/2024 11:1 4 PM CDT 10/01/2024 1:11 AM CDT Result Mary Carmen Clarke MD LAB BLOOD ORDERABLES Final Resul t Performing Organization Address City/[facility] Co de Phone Number [facility] Department [place] [address] * (ABNORMAL) Basic metabolic panel (09/30/2024 11:14 PM CDT) Sodium 140 135 - 145 mmol/L Potassium, pl 4.4 3.3 - 4.9 mmol/L [facility] Chloride 107 97 - 110 mmol/L [facility] CO2 26 22 - 32 mmol/L [facility] Anion gap 7 2 - 15 mmol/L [facility] BUN 27(H) 6 - 25 mg/dL [facility] Creatinine 1.22(H) 0.60 - 1.10 mg/dL [facility] Glucose 238(H) 70 - 199 mg/dL [facility] Comment: Interpretive Data Fasting glucose >/= 126 mg/dl is diagnostic for diabetes. Fasting is defined as no caloric intake for at least 8 hours. Fasting glucose between 100 mg/dl to 125 mg/dl is diagnostic of prediabetes. In a patient with classic symptoms of hyperglycemia or hyperglycemic crisis, a random glucose >/= 200 mg/dl is diagnostic for diabetes. In the absence of unequivocal hyperglycemia, results should be confirmed by repeat testing. The classification and Diagnosis of Diabetes Diabetes Care 2021; 46: S19-S40. Current interpretive data was last revised 2022. Calcium 8.2(L) 8.5 - 10.3 mg/dL [facility] Blood 09/30/2024 11:1 4 PM CDT 09/30/2024 11:53 PM CDT us Josie Clarke MD LAB BLOOD ORDERABLES Final Resul t Performing Organization Address City/[facility]/ZIP Co de Phone Number [facility] Department [place] [address] * (ABNORMAL) POCT glucose (09/30/2024 9:15 PM CDT) Glucose, POC 288(H) 70 - 199 mg/dL Blood 09/30/2024 9:15 PM CDT 09/30/2024 9:15 PM CDT us Josie Clarke MD LAB POCT ORDERABLES - DEVICE Fin al Result [facility] Department [place] [address] * NV AN PROCEDURE PLACEHOLDER (09/30/2024 5:42 PM CDT) Narrative eMlissa Koch CRNA - 09/30/2024 5:42 PM CDT Melissa Koch CRNA 09/30/2024 5:42 PM Peripheral IV Catheter Patient location: OR Staff: Placed by: PERSONNEL SECURITY ASSISTANT: Melissa Koch CRNA Preprocedure prep: Prep solution: chlorhexadine PPE: gloves and provider hat/mask PIV line: Laterality: right Site: foot Catheter size: 20 g Technique: direct visualization and palpatation Procedure details: good blood return and occlusive dressing applied Number of attempts: 1 us Joss Guillaume MD ANESTHESIA ORDERABLES Final Result * POCT glucose (09/30/2024 5:02 PM CDT) Glucose, POC 151 70 - 199 mg/dL Blood 09/30/2024 5:02 PM CDT 09/30/2024 5:02 PM CDT us Josie Clarke MD LAB POCT ORDERABLES - DEVICE Fin al Result Performing Organization Address [facility] Co de Phone Number [facility] Department [place] [address] * Surgical pathology (09/30/2024 3:30 PM CDT) Tissue specimen (specimen) (Thyroid) 09/30/2024 3:30 PM CDT Tissue specimen (specimen) (Lymph node, dissection/region al resection) 09/30/2024 3:34 PM CDT Tissue specimen (specimen) (Thyroid) 09/30/2024 3:35 PM CDT Tissue specimen (specimen) (Lymph node, dissection/region al resection) 09/30/2024 3:35 PM CDT Tissue specimen (specimen) (Thyroid) 09/30/2024 5:27 PM CDT Tissue specimen (specimen) (Thyroid) 09/30/2024 6:00 PM CDT Narrative PATHOLOGY [facility] - 10/06/2024 11:40 AM CDT EPIC results best viewed via link to PDF [facility] [place] [address] [place] [address] Note to Patients: This report may contain a detailed description of human tissue sent by a health care provider to the laboratory for pathologic evaluation. The content of this report is essential for diagnosis and may provide important critical findings. This information may be unfamiliar to patients to review without a medical professional present. It is advised that the patient review this report in the presence of a health care provider who can answer questions and explain the details. SURGICAL PATHOLOGY REPORT FINAL Patient Name: GEOVANNA WOODWARD Gender: F : 1965 (Age: 59) Address: [address] [place] [address] Hospital #: [id number] Taken:09/30/2024 Received:10/01/2024 Reported: 10/06/2024 Patient Type: [facility] OP In Bed Service: Surgery Location: [place] [address] Physician(s): MD Romie Faulkner PA Natnael Beyene Doilicho, MD William E. Gillanders, M.D. Diagnosis: A. Thyroid, part of right thyroid lobe #1 , total thyroidectomy: - Papillary thyroid carcinoma, classic, multifocal - Two foci, 5.0 cm in greatest dimension - Lymphovascular invasion identified - Margins are disrupted and positive for carcinoma - pT3a/N1b - See synoptic - Metastatic carcinoma in one of one lymph node (/) - Largest focus: 0.8 cm - Positive for extranodal extension, microscopic, < 1mm - Parathyroid tissue present B. Lymph nodes, central neck, dissection: - Metastatic carcinoma in three out of five lymph nodes (3/5) - Largest focus: 1.0 cm - Negative for extranodal extension C. Thyroid, part of right thyroid lobe #2 , total thyroidectomy: - Papillary thyroid carcinoma, classic, multifocal - 3.0 cm in greatest dimension - Lymphovascular invasion identified - Margins are positive for carcinoma - pT3a/N1b - See synoptic D. Lymph nodes, right level 2,3,4,5, dissection: - Level 5 lymph nodes - No evidence of malignancy in four lymph nodes (0/4) - Level 4 lymph nodes - No evidence of malignancy in five lymph nodes (0/5) - Level 3 lymph nodes - Metastatic carcinoma in four out of ten lymph nodes (4/10) - Largest focus: 2 cm - Positive for extranodal extension, microscopically < 0.2 cm - Level 2 lymph nodes - Metastatic carcinoma in seven out of thirteen lymph nodes (7/13) - Largest focus: 2.5 cm - Positive for extranodal extension, microscopically 0.2 cm - Metastatic carcinoma in one of one lymph node (07/09, level not identified) - Largest focus: 0.9 cm - Negative for extranodal extension E. Thyroid, left thyroid lobe, total thyroidectomy: - Papillary thyroid carcinoma, infiltrative, multifocal - 2.1 cm in greatest dimension - Lymphovascular invasion not identified - Margins are negative for carcinoma - pT3a/N1b - See synoptic - Metastatic carcinoma in one of one lymph node (07/09) - Largest focus: 0.9 cm - Negative for extranodal extension F. Thyroid, right thyroid lobe part 3 , total thyroidectomy: - Fragments of papillary thyroid carcinoma, infiltrative, multifocal (2.6 cm in aggregate) - Lymphovascular invasion identified - Margins indeterminate - pT3a/N1b - See synoptic xd/10/05/2024 20:28 By this signature, I attest that the above diagnosis is based upon my personal examination of the slides(and/or other material indicated in the diagnosis). Georgia Trevizo MD, PhD Report Electronically Reviewed and Signed Out By Georgia Trevizo MD, PhD 10/06/2024 11:40:04 Alyce Womack M.D., PhD History: The patient is a 59 year old female with biopsy proven papillary thyroid carcinoma of the right middle lobe of the thyroid and an FNA of the left middle lobe of the thyroid suspicious for papillary thyroid carcinoma. Operative procedure: total thyroidectomy, central neck lymph node dissection, right modified radical neck dissection Specimen(s) Received: A: Part of right thyroid lobe #1 B: Central neck lymph nodes C: Part of right thyroid lobe #2 D: Right level 2,3,4,5 E: Left thyroid lobe F: Right thyroid lobe part 3 Gross Description: Received in six formalin jars labeled with the patient's identifiers. A. Received in formalin and labeled with patient identifiers and additionally labeled part of right thyroid lobe 1 is an 11 g, 5.0 x 3.1 x 1.9 cm portion of right thyroid. This fragment has of capsule present in some areas by is significantly irregular and disrupted. There is visible tumor present in the areas of disruption. The exterior surface of the specimen is entirely inked black. The specimen is serially sectioned to reveal an unencapsulated irregular white- carter lesion percolating throughout the entire specimen overall measuring approximately 5.0 x 3.1 x 0.9 cm. This lesion is infiltrative and trach throughout the specimen in small nodules which are grossly contiguous with each other. This lesion grossly abuts the black inked capsular surface as well as the black inked cut surface. Additionally within the specimen there is a separate encapsulated nodule which measures 1.2 x 1.1 x 1.6 cm. One possible lymph node is identified measuring proximally 0.7 cm in greatest dimension. A1 Radial sections of encapsulated nodule at one end A2 Entire encapsulated nodule serially sectioned submitted in relation to surrounding lesion A3 Radial sections of encapsulated nodule at opposite end A4 Jockey Room Custodian sections of mass in relation to grossly uninvolved thyroid A5 Jockey Room Custodian sections of mass in relation to black inked margin in areas of putative positive margin A6 Additional desk representative sections of mass A7 One possible lymph node bisected and submitted entirely Jar 1. B. Received in formalin and labeled with patient identifiers and additionally labeled central neck lymph node are multiple fragments of yellow-carter lobulated fibroadipose tissue measuring 3.1 x 3.8 x 1.6 cm in aggregate. Sectioning and palpation reveals 11 possible lymph nodes ranging in size from 0.2 cm to 2.1 cm in greatest dimension. B1 Four possible lymph nodes submitted entirely B2 Three possible lymph nodes submitted entirely B3 One possible lymph node submitted entirely B4 One lymph node with gross tumor involvement bisected and submitted entirely B5 One lymph node bisected and submitted entirely B6 The largest lymph node serially sectioned and submitted entirely, with gross tumor involvement including area of possible gross extranodal extension versus adherent second lymph node Jar 1. C. Received in formalin and labeled with patient identifiers and additionally labeled part of right thyroid lobe 2 is a 2 g, 3.0 x 1.4 x 0.9 cm fragment. The majority of this fragment consists of a white-carter irregular firm lesion which is grossly visible at margin. The entire exterior surface of the specimen is inked black. The specimen is serially sectioned to reveal a irregular firm white-carter unencapsulated lesion replacing almost the entirety of the tissue present. This lesion measures 3.0 x 1.4 x 0.9 cm. This lesion grossly abuts the inked surface. The specimen is submitted entirely serial sections. C1-C2 Entire specimen serially sectioned and submitted Jar 0. D. Received in formalin and labeled with patient identifiers and additionally labeled right level two, three, four, five is a fragmented a 8.3 x 7.0 x 4.2 cm unoriented neck dissection specimen. The specimen consists of lymph nodes, fibroconnective tissue, and adipose tissue. No salivary gland or putative muscle is noted. The specimen is into levels two through five. Within level five there is six lymph nodes ranging in size from 0.2 cm to 1.3 cm in greatest dimension. Within level four 12 lymph nodes are identified ranging in size from 0.4 cm to 1.3 cm in greatest dimension. Within level three nine lymph nodes ranging in size from 0.5 cm to 1.3 cm in greatest dimension. Additionally there is a 3.4 cm mass of putative positive matted lymph nodes consisting of at least eight lymph nodes with putative extranodal extension noted grossly (at least 0.5 cm). Within level two 10 lymph nodes are identified ranging in size from 0.4 cm to 2.1 cm in greatest dimension. Additionally a 3.8 cm possible lymph node with edematous and cystic changes present. Additionally within the container are two detached fragments of tissue measuring 3.1 and 2.6 cm in greatest dimension. Sectioning and palpation of the fragments reveals a single lymph node measuring 1.5 cm cm in greatest dimension. D1 Level five lymph nodes, four lymph nodes submitted entirely D2-D3 Level five lymph node, one lymph node bisected and submitted entirely in each cassette D4 Level four lymph node, one putative lymph node bisected and submitted entirely D5-D7 Level four lymph node, lymph node submitted entirely in each cassette D8 Level four lymph node, two lymph node submitted entirely D9-D11 Level three lymph node, desk representative sections of matted mass of lymph nodes D12-D13 Level three lymph node, three lymph nodes submitted in each cassette D14 Level three lymph node, two lymph nodes submitted entirely D15 One lymph node bisected and submitted entirely pieces D16-D17 Level two lymph nodes, two lymph nodes submitted entirely in each cassette D18-D22 Level two lymph nodes, one lymph node bisected and submitted entirely in each cassette D23-D24 Level two lymph node, One lymph node serially sectioned and submitted entirely D25-D28 Level two lymph node, serially sectioned and submitted entirely, putative lymph node with edema and cystic degeneration D29 Free-floating lymph node bisected and submitted entirely E. Received in formalin and labeled with patient identifiers and additionally labeled left thyroid lobe is a 6 g, 3.1 x 2.65 1.6 cm portion of left thyroid. There is an area grossly consistent with the surgical section margin present on one aspect which is inked orange. Additionally there is an area of firm white unencapsulated tissue adjacent to this resection margin concerning for exposed putative tumor which is inked yellow. The remainder of the exterior surface is inked black. A single possible lymph node is identified measuring 0.7 cm in greatest dimension. The specimen is serially sectioned to reveal a firm white-carter lesion measuring 0.5 x 0.5 x 2.1 cm which grossly abuts the black inked surface. The lesion comes within 2 mm of the orange inked resection margin. A separate firm white-carter nodule is noted which corresponds to the putative exposed tumor inked yellow which measures 0.5 x 0.4 x 0.3 cm. A single lymph node is identified measuring 0.9 cm in greatest dimension. E1 One lymph node submitted entirely E2-E4 Entire lesion serially sectioned and submitted, with E3 including area with c and E4 containing the second described nodule losest approach to margins E5 Jockey Room Custodian sections of uninvolved thyroid Jar 0. F. Received in formalin and labeled with patient identifiers and additionally labeled right thyroid lobe part three are numerous fragments of thyroid tissue intermixed with white-carter lesion weighing 2 g and measuring 2.6 x 2.5 x 1.0 cm in aggregate. These fragments appear to consist of lesion grossly identical to those described in other portions of the right thyroid intermixed with benign thyroid tissue. Overall the entire aggregate appears to contain lesion in every fragment. These fragments are left uninked due to the small size of the fragments. the specimen is submitted entirely. F1 Three small fragments F2 Two small fragments F3 One larger fragment bisected and submitted entirely F4 One larger fragment bisected and submitted entirely Jar 0. 10/01/2024 13:49 Gross Resident:Georgia George M.D. CANCER CASE SUMMARY FOR THYROID NEOPLASMS For Parts A to F Procedure: Total thyroidectomy Tumor focality: Multifocal Tumor Site: Right lobe Left lobe Tumor size: Greatest dimension: 5 cm Histologic type: Papillary carcinoma, classic (usual, conventional) Margins: Margin(s) involved by carcinoma Angioinvasion (Vascular Invasion): Present Lymphatic Invasion: Present Perineural Invasion: Present Extrathyroidal extension: Cannot be determined Regional lymph nodes: Number of Lymph Nodes Involved: 17 Level - pretracheal, paratracheal and prelaryngeal/Delphian, perithyroidal (central compartment dissection) Level I-V (lateral neck dissection) Right lateral level I-V Number of Lymph Nodes Examined: 40 Level - pretracheal, paratracheal and prelaryngeal/Delphian, perithyroidal (central compartment dissection) Level I-V (lateral neck dissection) Right Lateral Level I-V Size of Largest Metastatic Deposit: 2.5 cm Extranodal Extension (COY): Present Pathologic Stage Classification (pTNM, AJCC: TNM Descriptors: m (multiple primary tumors) Primary tumor (pT): pT3: Tumor >4 cm limited to the thyroid, or gross extrathyroidal extension invading only strap muscles pT3a: Tumor >4 cm limited to the thyroid Regional lymph nodes (pN): pN1b: Metastasis to unilateral, bilateral, or contralateral lateral neck lymph nodes (levels I, II, III, IV, or V) or retropharyngeal lymph nodes The pathologic stage assigned here should be regarded as provisional, and may change after integration of clinical data not provided with this specimen. CAP VERSION: Thyroid 4.1.0.0 By this signature, I attest that the above diagnosis is based upon my personal examination of the slides(and/or other material). Addenda/Procedures The performance characteristics of some immunohistochemical stains, fluorescence in-situ hybridization tests and immunophenotyping by flow cytometry cited in this report (if any) were determined by the Surgical Pathology and Flow Cytometry Departments at [facility] as part of an ongoing software quality tester program and in compliance with federally mandated regulations drawn from the Clinical Laboratory Improvement Act of 1988 (CLIA '88). Some of these tests rely on the use of analyte specific reagents and are subject to specific labeling requirements by the US Food and Drug Administration. Such diagnostic tests may only be performed in a facility that is certified by the Department of Health and Human Services as a high complexity laboratory under CLIA '88. The FDA has determined that such clearance or approval is not necessary. This test is used for clinical purposes. It should not be regarded as investigational or for research. Nevertheless, federal rules concerning the medical use of analyte specific reagents require that the following disclaimer be attached to the report: This test was developed and its performance characteristics determined by the Surgical Pathology and Flow Cytometry Departments of [facility]. It has not been cleared or approved by the U. S. Food and Drug Administration. IMAGES AND SCANNED DOCUMENTS, IF INCLUDED, ONLY VIEWABLE IN PDF VERSION OF REPORT Josie Clarke MD LAB PATHOLOGY ORDERABLES Final R esult Performing Organization Address [facility] Co de Phone Number [facility] 3rd Floor [place], [place] [phone] * POCT glucose (09/30/2024 2:50 PM CDT) Glucose, POC 112 70 - 199 mg/dL Blood 09/30/2024 2:50 PM CDT 09/30/2024 2:50 PM CDT Josie Clarke MD LAB POCT ORDERABLES - DEVICE Fin al Result Performing Organization Address [facility] Co de Phone Number [facility] Department [place] [address] * NV AN ELECTIVE ENDOTRACHEAL AIRWAY, NV AN PROCEDURE PLACEHOLDER (09/30/2024 2:00 PM CDT) Narrative Melissa Koch CRNA - 09/30/2024 2:00 PM CDT Melissa Koch CRNA 09/30/2024 2:01 PM Airway Patient location: OR Urgency: elective Indications for airway management: anesthesia and airway protection Difficult airway: no Staff: Supervising provider: Joss Guillaume MD Placed by: PERSONNEL SECURITY ASSISTANT: Melissa Koch CRNA Emergent airway documentation: Risks and benefits discussed: yes Consent obtained: yes Consent given by: patient Airway prep: Preoxygenated: yes Patient position: sniffing Mask difficulty assessment: 0 - not attempted Spontaneous ventilation during airway: absent Sedation level during airway: GA Final airway details: Final airway type: endotracheal airway Tube type: NIM tube ETT size: 7.0 mm Cuffed: yes Technique used for successful ETT placement: video laryngoscopy Insertion site: oral Video blade type: Pelaez Blade size: 3 Cormack-Lehane (video): grade I - full view of glottis Cuff volume: 7 mL Cuff inflated with: air ETT to teeth: 21 cm ETT to gums: 21 cm Placement verified by: auscultation and CO2 detection Airway secured with: silk tape and tegaderm Number of attempts: 1 us Joss Guillaume MD ANESTHESIA ORDERABLES Final Result * POCT glucose (09/30/2024 12:36 PM CDT) Glucose, POC 95 70 - 199 mg/dL Blood 09/30/2024 12:3 6 PM CDT 09/30/2024 12:36 PM CDT Josie Clarke MD LAB POCT ORDERABLES - DEVICE Fin al Result [facility] Department [place] [address] * US Soft Tissue Neck (09/30/2024 11:15 AM CDT) Anatomical Region Laterality Modality Head and Neck N/A Ultrasound 09/30/2024 11:5 3 AM CDT Impressions 09/30/2024 11:53 AM CDT Preoperative marking of right cervical lymphadenopathy as described above. Electronically signed by: Velia Dyson M.D. Narrative 09/30/2024 11:53 AM CDT EXAMINATION: US SOFT TISSUE NECK HISTORY: 58-year-old female with multifocal papillary thyroid carcinoma with gross extrathyroidal extension posterior to the right thyroid lobe and metastatic right neck lymphadenopathy presenting for pre-op marking. FINDINGS: Partially imaged multifocal papillary thyroid cancer. There is extensive right cervical lymphadenopathy involving nearly all cervical lymph node stations, with multiple enlarged heterogenous lymph nodes containing echogenic foci. Preoperative marking was performed: - #1: level II/III enlarged lymph node conglomerate - #2: level III smaller adjacent satellite lymph nodes containing echogenic foci - #3: level III anterior enlarged lymph node - #4: level IV enlarged lymph node adjacent to the thyroid gland - #5: level IV enlarged lymph node conglomerate - #6: level IV smaller adjacent satellite lymph nodes containing echogenic foci No left cervical lymphadenopathy. Procedure Note Velia Dyson MD - 09/30/2024 EXAMINATION: US SOFT TISSUE NECK HISTORY: 58-year-old female with multifocal papillary thyroid carcinoma with gross extrathyroidal extension posterior to the right thyroid lobe and metastatic right neck lymphadenopathy presenting for pre-op marking. FINDINGS: Partially imaged multifocal papillary thyroid cancer. There is extensive right cervical lymphadenopathy involving nearly all cervical lymph node stations, with multiple enlarged heterogenous lymph nodes containing echogenic foci. Preoperative marking was performed: - #1: level II/III enlarged lymph node conglomerate - #2: level III smaller adjacent satellite lymph nodes containing echogenic foci - #3: level III anterior enlarged lymph node - #4: level IV enlarged lymph node adjacent to the thyroid gland - #5: level IV enlarged lymph node conglomerate - #6: level IV smaller adjacent satellite lymph nodes containing echogenic foci No left cervical lymphadenopathy. IMPRESSION: Preoperative marking of right cervical lymphadenopathy as described above. Electronically signed by: Velia Dyson M.D. Josie Clarke MD [facility] PROCEDURES Final Result * TYPE AND SCREEN 14 DAY (09/25/2024 9:37 AM CDT) Salvador, indirect Negative ABO Rh A Positive [facility] Blood 09/25/2024 9:37 AM CDT 09/25/2024 11:15 AM CDT Narrative [facility] - 09/25/2024 12:04 PM CDT Is this test being ordered in advance for a procedure?->Yes Expected date of procedure:->09/30/24 Has the patient been transfused in the past 3 months?->No Has the patient been in the past 3 months?->No Sunshine Nieves NP LAB BLOOD BANK TEST ORDERAB LES Final Result Performing Organization Address [facility] [place] [address] * (ABNORMAL) POCT hemoglobin A1c (09/25/2024 8:23 AM CDT) [facility] Hgb A1C, POC 6.5(H) 4.0 - 5.6 % Est Average Gluc POC 140 mg/dL [facility] Comment: The ADA recommends reporting an estimated Average Glucose (eAG) with all Hemoglobin A1c results using the equation derived from a study of 507 normal and diabetic adults. Minority populations were underrepresented and children were not included. (Diabetes Care [id number], 2008). The eAG is not equivalent to a fasting glucose. Blood 09/25/2024 8:23 AM CDT 09/25/2024 8:23 AM CDT Josie Clarke MD POINT OF CARE TEST ORDERABLES Fi nal Result Performing Organization Address [facility] [place] [address] * ECG 12 lead (09/25/2024 8:11 AM CDT) Pathologist [facility] Ventricular Rate EKG/Min 65 BPM [facility] Atrial Rate 65 BPM [facility] NV-Interval (MSEC) 160 ms [facility] QRS-Interval (MSEC) 96 ms [facility] QT-Interval (MSEC) 432 ms [facility] QTc 449 ms [facility] P Townsend 23 degrees [facility] R Townsend -15 degrees [facility] T Townsend 14 degrees [facility] Diagnosis Normal sinus rhythm Normal ECG No previous ECGs available Confirmed by David Esquivel MD ([id number]) on 09/28/2024 8:03:24 AM [facility] 09/25/2024 8:11 AM CDT 09/28/2024 8:03 AM CDT us Sunshine Nieves [employer]ER ECG ORDERABLES Final Resul t [facility] [employer] [facility] * PET/CT FDG Skull to Thigh (09/10/2024 1:10 PM PRODUCT MANAGER MEDICAL DEVICE) Anatomical Region Laterality Modality N/A Positron Emissio n Tomography (PET) 09/10/2024 2:08 PM PRODUCT MANAGER MEDICAL DEVICE Impressions 09/10/2024 2:08 PM PRODUCT MANAGER MEDICAL DEVICE 1. Diffuse marked hypermetabolism throughout the thyroid gland compatible with known primary thyroid malignancy. There is a exophytic component to the contour and uptake in the posterior right thyroid lobe in keeping with known extrathyroidal extension. 2. Markedly FDG avid right neck lymph nodes at multiple lymph node stations-level 2, 3, 4, 5 and one at level 6 most compatible with sandro metastatic disease. 3. Moderately FDG avid anterior mediastinal lymph node, left internal mammary lymph node and right paratracheal lymph node also compatible with sandro metastatic disease. 4. Several tiny nodules throughout both lungs too small to be characterized on this study. 5. Diffuse heterogeneous marrow metabolic activity without discrete focal lesions above background. Findings may represent physiologic bone marrow response to anemia. Electronic health records do not indicate recent bone marrow stimulating therapy. Correlation with clinical history and lab values may be helpful.. Electronically signed by: Marcia Uribe M.D. Narrative 09/10/2024 2:08 PM PRODUCT MANAGER MEDICAL DEVICE EXAMINATION: TUMOR FDG-PET/CT IMAGING DATE OF STUDY: 09/10/2024 SCANNER: [facility] N PET Vision (NV1). This is a high-resolution scanner, which can result in higher SUVs (and even detection of previously unrecognized small lesions) compared to older scanners. RADIOPHARMACEUTICAL: 18.9 mCi F-18 Fluorodeoxyglucose (FDG) i.v. Injection site: Left antecubital fossa HISTORY: 58-year-old female with papillary thyroid carcinoma with ultrasound findings suspicious for multifocal papillary thyroid carcinoma involving both lobes suspicion for gross extrathyroidal extension posterior to the right thyroid lobe. Metastatic right neck lymph nodes at levels to 3, 4, 5 8 and 5 the. The study is requested for initial staging. Initial treatment strategy. TECHNIQUE: The patient's fasting blood glucose level, measured by glucometer before injection of FDG, was 145 mg/dL. After intravenous administration of FDG, noncontrast CT images were obtained for attenuation correction and for fusion with emission PET images to allow for anatomical localization of PET findings. Emission PET images were then obtained. The study was interpreted on the [employer] workstation. The mean liver SUV (reported for quality control tech purposes) is 2.9. The total scanned area was skull vertex to proximal thighs. Images of the body were obtained starting 65 minutes after injection of tracer. All reported SUVs are maximum SUVs, unless otherwise specified. COMPARISON: Thyroid ultrasound 08/22/2024. Contrast chest CT 08/26/2024 which demonstrated right thyroid nodules, suspicious mediastinal lymphadenopathy and diffuse tiny pulmonary nodules on a background of mosaic attenuation. CT 08/26/2024 demonstrated multiple heterogeneously attenuating thyroid nodules with evidence of extrathyroidal extension and 1.5 cm with extension to the level of the thoracic inlet. Suspicion for multiple metastatic disease in numerous right cervical lymph node levels 2, 3, 4, 5 and 6. DESCRIPTORS OF LESION FDG AVIDITY: Minimal: <= blood pool Mild: > blood pool and <= liver Moderate: > liver and <= 2x SUVmax liver Moderate to marked: >2x SUVmax liver and <= 3x SUVmax liver Marked: > 3x SUVmax liver FINDINGS: Diffuse marked hypermetabolism throughout both thyroid lobes with an exophytic component to the posterior right thyroid lobe suggestive of extension. Reference SUV right thyroid lobe, 7.5.] Several markedly FDG avid right neck lymph nodes at multiple lymph node stations-level 2, 3, 4, and 5 as well as 1 markedly hypermetabolic the right 6A neck lymph node.. Reference right level 5 neck lymph node measuring up to 2.4 x 1.9 cm, SUV 7.6. There is moderate physiologic metabolic activity in the brown adipose tissue of the neck and supraclavicular regions as well as cervical and thoracic paravertebral regions. Moderately FDG avid anterior mediastinal lymph node measuring up to 9 mm transverse short axis, SUV 4.4. Moderately FDG avid right paratracheal lymph node (image 99), SUV 4.6 measuring up to 10 mm transverse short axis. Small subcentimeter mildly FDG avid left internal mammary lymph node. Heterogeneous metabolic activity throughout the skeleton without discrete focal areas above background marrow. The most FDG-avid lesion is identified neck lymph node, has a maximum SUV of 7.6, and approximate axial dimensions of 2.4 x [address] findings: Subcentimeter left cervical lymph nodes not enlarged by imaging size criteria. Minimal coronary calcifications in the LAD. Several tiny pulmonary nodules too small to be characterized on this study. Postsurgical changes of prior gastric bypass. Accessory spleens of the splenic hilum. Atrophic appearance of the pancreas. Scattered sigmoid diverticula. The uterus is not seen. Subcentimeter left cervical lymph nodes are not enlarged by imaging size criteria Procedure Note Marcia Uribe MD - 09/10/2024 EXAMINATION: TUMOR FDG-PET/CT IMAGING DATE OF STUDY: 09/10/2024 SCANNER: [facility] the grafter (NV1). This is a high-resolution scanner, which can result in higher SUVs (and even detection of previously unrecognized small lesions) compared to older scanners. RADIOPHARMACEUTICAL: 18.9 mCi F-18 Fluorodeoxyglucose (FDG) i.v. Injection site: Left antecubital fossa HISTORY: 58-year-old female with papillary thyroid carcinoma with ultrasound findings suspicious for multifocal papillary thyroid carcinoma involving both lobes suspicion for gross extrathyroidal extension posterior to the right thyroid lobe. Metastatic right neck lymph nodes at levels to 3, 4, 5 8 and 5 the. The study is requested for initial staging. Initial treatment strategy. TECHNIQUE: The patient's fasting blood glucose level, measured by glucometer before injection of FDG, was 145 mg/dL. After intravenous administration of FDG, noncontrast CT images were obtained for attenuation correction and for fusion with emission PET images to allow for anatomical localization of PET findings. Emission PET images were then obtained. The study was interpreted on the [employer] workstation. The mean liver SUV (reported for quality control tech purposes) is 2.9. The total scanned area was skull vertex to proximal thighs. Images of the body were obtained starting 65 minutes after injection of tracer. All reported SUVs are maximum SUVs, unless otherwise specified. COMPARISON: Thyroid ultrasound 08/22/2024. Contrast chest CT 08/26/2024 which demonstrated right thyroid nodules, suspicious mediastinal lymphadenopathy and diffuse tiny pulmonary nodules on a background of mosaic attenuation. CT 08/26/2024 demonstrated multiple heterogeneously attenuating thyroid nodules with evidence of extrathyroidal extension and 1.5 cm with extension to the level of the thoracic inlet. Suspicion for multiple metastatic disease in numerous right cervical lymph node levels 2, 3, 4, 5 and 6. DESCRIPTORS OF LESION FDG AVIDITY: Minimal: <= blood pool Mild: > blood pool and <= liver Moderate: > liver and <= 2x SUVmax liver Moderate to marked: >2x SUVmax liver and <= 3x SUVmax liver Marked: > 3x SUVmax liver FINDINGS: Diffuse marked hypermetabolism throughout both thyroid lobes with an exophytic component to the posterior right thyroid lobe suggestive of extension. Reference SUV right thyroid lobe, 7.5.] Several markedly FDG avid right neck lymph nodes at multiple lymph node stations-level 2, 3, 4, and 5 as well as 1 markedly hypermetabolic the right 6A neck lymph node.. Reference right level 5 neck lymph node measuring up to 2.4 x 1.9 cm, SUV 7.6. There is moderate physiologic metabolic activity in the brown adipose tissue of the neck and supraclavicular regions as well as cervical and thoracic paravertebral regions. Moderately FDG avid anterior mediastinal lymph node measuring up to 9 mm transverse short axis, SUV 4.4. Moderately FDG avid right paratracheal lymph node (image 99), SUV 4.6 measuring up to 10 mm transverse short axis. Small subcentimeter mildly FDG avid left internal mammary lymph node. Heterogeneous metabolic activity throughout the skeleton without discrete focal areas above background marrow. The most FDG-avid lesion is identified neck lymph node, has a maximum SUV of 7.6, and approximate axial dimensions of 2.4 x [address] findings: Subcentimeter left cervical lymph nodes not enlarged by imaging size criteria. Minimal coronary calcifications in the LAD. Several tiny pulmonary nodules too small to be characterized on this study. Postsurgical changes of prior gastric bypass. Accessory spleens of the splenic hilum. Atrophic appearance of the pancreas. Scattered sigmoid diverticula. The uterus is not seen. Subcentimeter left cervical lymph nodes are not enlarged by imaging size criteria IMPRESSION: 1. Diffuse marked hypermetabolism throughout the thyroid gland compatible with known primary thyroid malignancy. There is a exophytic component to the contour and uptake in the posterior right thyroid lobe in keeping with known extrathyroidal extension. 2. Markedly FDG avid right neck lymph nodes at multiple lymph node stations-level 2, 3, 4, 5 and one at level 6 most compatible with sandro metastatic disease. 3. Moderately FDG avid anterior mediastinal lymph node, left internal mammary lymph node and right paratracheal lymph node also compatible with sandro metastatic disease. 4. Several tiny nodules throughout both lungs too small to be characterized on this study. 5. Diffuse heterogeneous marrow metabolic activity without discrete focal lesions above background. Findings may represent physiologic bone marrow response to anemia. Electronic health records do not indicate recent bone marrow stimulating therapy. Correlation with clinical history and lab values may be helpful.. Electronically signed by: Marcia Uribe M.D. us Josie Clarke MD IMG PET PROCEDURES Final Result * NM Thyrogen Injection (09/09/2024 9:33 AM PRODUCT MANAGER MEDICAL DEVICE) Narrative [facility] - 09/09/2024 9:33 AM PRODUCT MANAGER MEDICAL DEVICE This order does not require dictation. Please see encounter notes for further details. us Josie Clarke MD IMG NM PROCEDURES Final Result [facility] * (ABNORMAL) TSH (09/09/2024 8:38 AM PRODUCT MANAGER MEDICAL DEVICE) Thyroid Stimulating Hormone 201.00(H) 0.30 - 4.20 mcIUnit/m L Blood 09/09/2024 8:38 AM PRODUCT MANAGER MEDICAL DEVICE 09/09/2024 9:50 AM PRODUCT MANAGER MEDICAL DEVICE us Josie Clarke MD LAB BLOOD ORDERABLES Final Resul t [facility] Department [place] [id number] * NM Thyrogen Injection (09/08/2024 11:49 AM PRODUCT MANAGER MEDICAL DEVICE) Narrative [facility] - 09/08/2024 11:49 AM PRODUCT MANAGER MEDICAL DEVICE This order does not require dictation. Please see encounter notes for further details. us Josie Clarke MD [facility] PROCEDURES Final Result [facility] * CT Chest W Contrast (08/26/2024 1:06 PM PRODUCT MANAGER MEDICAL DEVICE) Anatomical Region Laterality Modality Body N/A Computed Tomogra phy 08/26/2024 2:08 PM PRODUCT MANAGER MEDICAL DEVICE Impressions 08/26/2024 3:08 PM PRODUCT MANAGER MEDICAL DEVICE 1. Right thyroid nodules better evaluated on prior thyroid ultrasound. 2. Mediastinal lymphadenopathy is suspicious for sandro metastatic disease. 3. 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 Dictated by: Monserrat Herbert MD The radiology attending physician has personally reviewed this study, and had reviewed and/or edited this written report and agrees with it. Electronically signed by: Arsenio Nesbitt M.D. Narrative 08/26/2024 3:08 PM PRODUCT MANAGER MEDICAL DEVICE EXAMINATION: Computed tomography of the chest with intravenous contrast HISTORY: 58-year-old woman with thyroid nodules and cervical lymphadenopathy suspicious for papillary thyroid carcinoma. TECHNIQUE: Transaxial computed tomographic images of the chest were obtained with intravenous contrast according to the standard protocol after the uneventful administration of 115 mL Opti-Ray 350 intravenous contrast. 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 For reference a 0.4 cm pulmonary nodule in the left lower lobe (series 4, image 82) and a 0.4 cm pulmonary nodule near the fissure in the right lower lobe (series 4, image 63). No pneumothorax or pleural effusion. Multiple hyperattenuating right thyroid nodules better evaluated on prior thyroid ultrasound, for reference a right thyroid nodule measuring up to 1.5 x 1.3 cm. A right paratracheal lymph node measuring up to 1.0 cm in short axis (series 3 image 11). Hyperattenuating mediastinal lymph nodes, for reference a prevascular lymph node measuring 1.0 cm in short axis (series 3, image 30). Heart size is normal. No pericardial effusion. 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 Fatty atrophy of the pancreas. The kidneys are atrophic. No acute findings in imaged upper abdomen. No suspicious osseous lesion. Procedure Note Arsenio Nesbitt MD - 08/26/2024 EXAMINATION: Computed tomography of the chest with intravenous contrast HISTORY: 58-year-old woman with thyroid nodules and cervical lymphadenopathy suspicious for papillary thyroid carcinoma. TECHNIQUE: Transaxial computed tomographic images of the chest were obtained with intravenous contrast according to the standard protocol after the uneventful administration of 115 mL Opti-Ray 350 intravenous contrast. 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 For reference a 0.4 cm pulmonary nodule in the left lower lobe (series 4, image 82) and a 0.4 cm pulmonary nodule near the fissure in the right lower lobe (series 4, image 63). No pneumothorax or pleural effusion. Multiple hyperattenuating right thyroid nodules better evaluated on prior thyroid ultrasound, for reference a right thyroid nodule measuring up to 1.5 x 1.3 cm. A right paratracheal lymph node measuring up to 1.0 cm in short axis (series 3 image 11). Hyperattenuating mediastinal lymph nodes, for reference a prevascular lymph node measuring 1.0 cm in short axis (series 3, image 30). Heart size is normal. No pericardial effusion. 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 Fatty atrophy of the pancreas. The kidneys are atrophic. No acute findings in imaged upper abdomen. No suspicious osseous lesion. IMPRESSION: 1. Right thyroid nodules better evaluated on prior thyroid ultrasound. 2. Mediastinal lymphadenopathy is suspicious for sandro metastatic disease. 3. 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 Dictated by: Monserrat Herbert MD The radiology attending physician has personally reviewed this study, and had reviewed and/or edited this written report and agrees with it. Electronically signed by: Arsenio Nesbitt M.D. Josie Clarke MD IMG CT PROCEDURES Final Result * CT Neck Soft Tissue W Contrast (08/26/2024 1:06 PM PRODUCT MANAGER MEDICAL DEVICE) Anatomical Region Laterality Modality Head and Neck N/A Computed Tomogra phy 08/26/2024 4:00 PM PRODUCT MANAGER MEDICAL DEVICE Impressions 08/26/2024 4:09 PM PRODUCT MANAGER MEDICAL DEVICE 1. Multiple heterogeneously attenuating nodules within the right thyroid lobe, with evidence of extrathyroidal extension, concerning for papillary thyroid carcinoma. There is 1.5 cm of extension below the level of the thoracic inlet. 2. Numerous enlarged right cervical lymph nodes at stations 2, 3, 4, 5 and 6, concerning for sandro metastatic disease. Dictated by: Campbell De Luna M.D. The radiology attending physician has personally reviewed this study, and had reviewed and/or edited this written report and agrees with it. Electronically signed by: Bipin Sifuentes MD, PhD Narrative 08/26/2024 4:09 PM PRODUCT MANAGER MEDICAL DEVICE EXAMINATION: CT of the neck with contrast HISTORY: 58-year-old woman with concern for multifocal thyroid carcinoma. TECHNIQUE: CT of the neck was performed according to the standard protocol with intravenous contrast. Contrast information: 115 mL Optiray-350 COMPARISON: Thyroid ultrasound 08/22/2024. FINDINGS: Edentulous. Several heterogeneous nodules within the right lobe of the thyroid, one with central hypoattenuation such as on series 2 image 77. This nodule appears to arise from the right thyroid lobe and demonstrates inferior extrathyroidal extension. There is no direct invasion or mass effect into the subjacent trachea. There is 1.5 cm of extension below the level of the thoracic inlet. Numerous enlarged and heterogeneously enhancing right cervical lymph nodes at levels 2, 3, 4, 5 and 6. For instance, a right level 3/4 lymph node seen on series 2 image 51 measures 2.5 cm x 2.3 cm, is heterogeneously enhancing, and has internal punctate calcifications. A right level 4 lymph node measures 2.4 cm x 1.8 cm best seen on series 2 image 63. A right paratracheal lymph node seen on series 2 image 77 measures 11 mm in short axis, and is abnormally rounded and enhancing. No left cervical lymphadenopathy. Hypoplastic right sternocleidomastoid muscle of uncertain etiology or significance. Vessels of the neck demonstrate normal course and caliber. Fascial planes are preserved and the deep spaces of the neck are normal. The visualized airway is widely patent. The base of the skull and the temporal bones are normal. Limited views of the brain including the cerebellum and brainstem are normal. The limited view of the [place] is unremarkable. The visualized portions of the orbits are normal. Mild multilevel cervical spondylosis with multilevel intervertebral disc height loss. Degenerative changes of the left temporomandibular joint. The spinal canal is normal in caliber. Neural foramina are normal. Limited examination of the superior thorax shows no pulmonary infiltrate or pleural effusions. 2 mm nodule at the left upper lobe seen on series 7 image 42 is indeterminate. Procedure Note Bipin Sifuentes MD PhD - 08/26/2024 EXAMINATION: CT of the neck with contrast HISTORY: 58-year-old woman with concern for multifocal thyroid carcinoma. TECHNIQUE: CT of the neck was performed according to the standard protocol with intravenous contrast. Contrast information: 115 mL Optiray-350 COMPARISON: Thyroid ultrasound 08/22/2024. FINDINGS: Edentulous. Several heterogeneous nodules within the right lobe of the thyroid, one with central hypoattenuation such as on series 2 image 77. This nodule appears to arise from the right thyroid lobe and demonstrates inferior extrathyroidal extension. There is no direct invasion or mass effect into the subjacent trachea. There is 1.5 cm of extension below the level of the thoracic inlet. Numerous enlarged and heterogeneously enhancing right cervical lymph nodes at levels 2, 3, 4, 5 and 6. For instance, a right level 3/4 lymph node seen on series 2 image 51 measures 2.5 cm x 2.3 cm, is heterogeneously enhancing, and has internal punctate calcifications. A right level 4 lymph node measures 2.4 cm x 1.8 cm best seen on series 2 image 63. A right paratracheal lymph node seen on series 2 image 77 measures 11 mm in short axis, and is abnormally rounded and enhancing. No left cervical lymphadenopathy. Hypoplastic right sternocleidomastoid muscle of uncertain etiology or significance. Vessels of the neck demonstrate normal course and caliber. Fascial planes are preserved and the deep spaces of the neck are normal. The visualized airway is widely patent. The base of the skull and the temporal bones are normal. Limited views of the brain including the cerebellum and brainstem are normal. The limited view of the [place] is unremarkable. The visualized portions of the orbits are normal. Mild multilevel cervical spondylosis with multilevel intervertebral disc height loss. Degenerative changes of the left temporomandibular joint. The spinal canal is normal in caliber. Neural foramina are normal. Limited examination of the superior thorax shows no pulmonary infiltrate or pleural effusions. 2 mm nodule at the left upper lobe seen on series 7 image 42 is indeterminate. IMPRESSION: 1. Multiple heterogeneously attenuating nodules within the right thyroid lobe, with evidence of extrathyroidal extension, concerning for papillary thyroid carcinoma. There is 1.5 cm of extension below the level of the thoracic inlet. 2. Numerous enlarged right cervical lymph nodes at stations 2, 3, 4, 5 and 6, concerning for sandro metastatic disease. Dictated by: Campbell De Luna M.D. The radiology attending physician has personally reviewed this study, and had reviewed and/or edited this written report and agrees with it. Electronically signed by: Bipin Sifuentes MD, PhD Josie Clarke MD IMG CT PROCEDURES Final Result * US Guided Thyroid Fine Needle Aspiration 1st Lesion (08/26/2024 12:10 PM PRODUCT MANAGER MEDICAL DEVICE) Anatomical Region Laterality Modality Thyroid N/A Ultrasound 08/26/2024 12:1 5 PM PRODUCT MANAGER MEDICAL DEVICE Impressions 08/26/2024 12:15 PM PRODUCT MANAGER MEDICAL DEVICE 1. Successful thyroid biopsy of the high suspicion within the right mid thyroid. 2. Successful thyroid biopsy of the high suspicion within the left mid thyroid. The radiology attending physician has personally reviewed this study, and had reviewed and/or edited this written report and agrees with it. Electronically signed by: CAROLYN Carbajal Narrative 08/26/2024 12:15 PM PRODUCT MANAGER MEDICAL DEVICE EXAMINATION: ULTRASOUND-GUIDED THYROID FINE NEEDLE ASPIRATION HISTORY: 58-year-old woman with suspicious thyroid nodules and cervical lymphadenopathy noted on sonogram dated 08/22/2024 COMPARISON: Thyroid sonogram 08/22/2024 FINDINGS: Biopsy #: 1 Nodule reference number based on prior diagnostic ultrasound: 1 Size: 1.8 cm craniocaudal x 1.5 cm transverse x 1.8 cm AP Maximum Size: 1.8 cm Location: Right mid ACR TI-RADS risk category: TR5 (7 or more points) Reason for biopsy: meets ACR TI-RADS criteria Biopsy #: 2 Nodule reference number based on prior diagnostic ultrasound: 2 Size: 0.4 cm craniocaudal x 0.5 cm transverse x 0.8 cm AP Maximum Size: 0.8 cm Location: Left mid ACR TI-RADS risk category: TR5 (7 or more points) Reason for biopsy: meets ACR TI-RADS criteria FINE NEEDLE ASPIRATION: The procedure for ultrasound-guided FNA and its benefits and risks were explained to the patient. Risks were explained to include, but not be limited to, hemorrhage, infection, injury to adjacent organs, non-diagnostic specimen and adverse reaction to medications administered. The patient voiced understanding and wished to proceed and signed the consent form. The sites were localized for fine needle aspiration. The sites were prepped and draped in the usual manner. 10 mL of 1% Lidocaine was used for local anesthesia. 6 passes were made with 25 gauge needles into the right mid nodule and 1 pass was made with 25 gauge needles and 5 passes were made with 23 gauge needle, three of which was with suction into left mid nodule. Appropriate needle localization was documented with continuous sonographic guidance. The fine needle aspirates were handed to the tub operator present during the procedure. Please refer to the dictated cytology report for final interpretation. The patient's skin was cleaned and dressed. The patient tolerated the procedure well without immediate complication. CAROLYN Carbajal, was present from the beginning to the end of the procedure. CAROLYN Carbajal performed the biopsy. Dr. Lew Melgar was present and participated in the procedure. Dr. Lew Melgar (vice president financial) personally participated in sonographic imaging of this patient. Procedure Note Maryam Velarde PA - 08/26/2024 EXAMINATION: ULTRASOUND-GUIDED THYROID FINE NEEDLE ASPIRATION HISTORY: 58-year-old woman with suspicious thyroid nodules and cervical lymphadenopathy noted on sonogram dated 08/22/2024 COMPARISON: Thyroid sonogram 08/22/2024 FINDINGS: Biopsy #: 1 Nodule reference number based on prior diagnostic ultrasound: 1 Size: 1.8 cm craniocaudal x 1.5 cm transverse x 1.8 cm AP Maximum Size: 1.8 cm Location: Right mid ACR TI-RADS risk category: TR5 (7 or more points) Reason for biopsy: meets ACR TI-RADS criteria Biopsy #: 2 Nodule reference number based on prior diagnostic ultrasound: 2 Size: 0.4 cm craniocaudal x 0.5 cm transverse x 0.8 cm AP Maximum Size: 0.8 cm Location: Left mid ACR TI-RADS risk category: TR5 (7 or more points) Reason for biopsy: meets ACR TI-RADS criteria FINE NEEDLE ASPIRATION: The procedure for ultrasound-guided FNA and its benefits and risks were explained to the patient. Risks were explained to include, but not be limited to, hemorrhage, infection, injury to adjacent organs, non-diagnostic specimen and adverse reaction to medications administered. The patient voiced understanding and wished to proceed and signed the consent form. The sites were localized for fine needle aspiration. The sites were prepped and draped in the usual manner. 10 mL of 1% Lidocaine was used for local anesthesia. 6 passes were made with 25 gauge needles into the right mid nodule and 1 pass was made with 25 gauge needles and 5 passes were made with 23 gauge needle, three of which was with suction into left mid nodule. Appropriate needle localization was documented with continuous sonographic guidance. The fine needle aspirates were handed to the tub operator present during the procedure. Please refer to the dictated cytology report for final interpretation. The patient's skin was cleaned and dressed. The patient tolerated the procedure well without immediate complication. CAROLYN Carbajal, was present from the beginning to the end of the procedure. CAROLYN Carbajal performed the biopsy. Dr. Lew Melgar was present and participated in the procedure. Dr. Lew Melgar (vice president financial) personally participated in sonographic imaging of this patient. IMPRESSION: 1. Successful thyroid biopsy of the high suspicion within the right mid thyroid. 2. Successful thyroid biopsy of the high suspicion within the left mid thyroid. The radiology attending physician has personally reviewed this study, and had reviewed and/or edited this written report and agrees with it. Electronically signed by: CAROLYN Carbajal us Josie Clarke MD [facility] [place] PROCEDURES Final Result * Cytology (08/26/2024 12:00 AM PRODUCT MANAGER MEDICAL DEVICE) Fine needle aspirate (Thyroid Gland (Cytology)) 08/26/2024 11:12 AM PRODUCT MANAGER MEDICAL DEVICE Narrative PATHOLOGY [facility] - 08/28/2024 2:00 PM PRODUCT MANAGER MEDICAL DEVICE EPIC results best viewed via link to PDF [facility] [place] [address] Note to Patients: This report may contain a detailed description of human tissue sent by a health care provider to the laboratory for pathologic evaluation. The content of this report is essential for diagnosis and may provide important critical findings. This information may be unfamiliar to patients to review without a medical professional present. It is advised that the patient review this report in the presence of a health care provider who can answer questions and explain the details. CYTOPATHOLOGY REPORT FINAL WITH ADDENDUM Patient Name: GEOVANNA WOODWARD Gender: F : 1965 (Age: 58) Address: [address] [place] [address] Hospital #: [id number] Taken:08/26/2024 Received:08/26/2024 Reported: 08/28/2024 Patient Type: [facility] Ancillary Service: Radiology Location: Physician(s): Fany Carrillo PA-C Justin Tyler Dumrongkulraksa, MD FINAL DIAGNOSIS A. Thyroid, right middle lobe, ultrasound-guided fine needle aspiration: - Papillary thyroid carcinoma B. Thyroid, left middle lobe, ultrasound-guided fine needle aspiration: - Suspicious for papillary thyroid carcinoma Comments This result was flagged as significant and was sent to Dr. Jsoie Clarke via email on 08/28/2024. Reason(s): To the best of our knowledge, this is the first diagnosis of this type of malignancy rendered for this patient. kw/08/28/2024 10:57 By this signature, I attest that the above diagnosis is based upon my personal examination of the slides(and/or other material indicated in the diagnosis). Michael Wooten M.D. Report Electronically Reviewed and Signed Out By Michael Wooten M.D. 08/28/2024 14:00:04 Brennan RdzVioleta Hardy MS, CT([facility]PA Gross Description A. Thyroid, right middle lobe, ultrasound guided fine needle aspiration: 3 Pap stained smear(s) and 3 Diff-Quik stained smear(s). 1 ThinPrep prepared from needle rinse tube. Material for Afirma was collected, and testing will be performed, if indicated. Aspirated by clinician. (rm) B. Thyroid, left middle lobe, ultrasound guided fine needle aspiration: 3 Pap stained smear(s) and 3 Diff-Quik stained smear(s). 1 ThinPrep prepared from needle rinse tube. Material for Afirma was collected, and testing will be performed, if indicated. Aspirated by clinician. () Clinical Diagnosis and History Thyroid nodule Addenda/Procedures Addendum Ordered:09/16/2024Status:Signed OutAddendum Complete:09/16/2024y:Michael Wooten M.D.Addendum Signed Out:09/17/2024 Addendum Comment A digital scan of the original reference lab report will begin on page two of this addendum. By this signature, I attest that the above diagnosis is based upon my personal examination of the slides(and/or other material indicated in the diagnosis). Michael Wooten M.D.Report Electronically Reviewed and Signed Out By Michael Wooten M.D. 09/17/2024 09:07:14 REPORT IMAGES AND SCANNED DOCUMENTS, IF INCLUDED, ONLY VIEWABLE IN PDF VERSION OF REPORT The performance characteristics of some immunohistochemical stains, in-situ hybridization and fluorescence in-situ hybridization tests and immunophenotyping by flow cytometry cited in this report (if any) were determined by the Surgical Pathology and Flow Cytometry Departments at [facility] as part of an ongoing software quality tester program and in compliance with federally mandated regulations drawn from the Clinical Laboratory Improvement Act of 1988 (CLIA '88). Some of these tests rely on the use of analyte specific reagents and are subject to specific labeling requirements by the US Food and Drug Administration. Such diagnostic tests may only be performed in a facility that is certified by the Department of Health and Human Services as a high complexity laboratory under CLIA '88. The FDA has determined that such clearance or approval is not necessary. This test is used for clinical purposes. It should not be regarded as investigational or for research. Nevertheless, federal rules concerning the medical use of analyte specific reagents require that the following disclaimer be attached to the report: This test was developed and its performance characteristics determined by the Surgical Pathology and Flow Cytometry Departments of [facility]. It has not been cleared or approved by the U. S. Food and Drug Administration. us Josie Clarke MD LAB CYTOLOGY ORDERABLES Final Re sult PATHOLOGY [facility] 3rd Floor [place], [place] [phone] * Neuro CT Outside Consult (08/22/2024 4:23 PM PRODUCT MANAGER MEDICAL DEVICE) Anatomical Region Laterality Modality N/A Computed Tomogra phy 08/22/2024 4:41 PM PRODUCT MANAGER MEDICAL DEVICE Impressions 08/22/2024 4:45 PM PRODUCT MANAGER MEDICAL DEVICE No acute intracranial process. The findings, conclusions and recommendations within this report do not replace the initial findings, conclusions and recommendations made at the facility where the study was performed based upon the imaging and clinical condition at that time. Comparison with the prior report and clinical history is necessary. The provided images may or may not represent the [place] source data set and thus may contain changes that may lower the accuracy of this second-opinion interpretation. Dictated by: Campbell De Luna M.D. The radiology attending physician has personally reviewed this study, and had reviewed and/or edited this written report and agrees with it. Electronically signed by: Luc Linares M.D. Ph.D. Narrative 08/22/2024 4:45 PM PRODUCT MANAGER MEDICAL DEVICE EXAMINATION: RADIOLOGY CONSULTATION ON OUTSIDE IMAGING STUDY STUDY INITIALLY PERFORMED: [place] [facility] [place] OF STUDY: Multiple CT images of the head without contrast are provided at the time of this interpretation. CONTRAST ROUTE: No contrast was administered. The protocol was adequate to address the clinical question. The outside final report was not available at the time of this second opinion interpretation. TYPE OF CONSULTATION: Consult on outside imaging study with images submitted through Outside Image Sharing Service DATE OF CONSULTATION: 08/22/2024 4:26 PM HISTORY: 58-year-old woman with headache. COMPARISON: None available. FINDINGS: There is no acute intracranial hemorrhage. Ventricles are of normal size and morphology. No mass effect or midline shift is present. The estrella-white matter differentiation is normal. The visualized portions of the orbits are normal. The visualized portions of the mastoids are normal. The visualized portions of the paranasal sinuses are normal. No fractures are identified. Procedure Note Luc Linares MD PhD - 08/22/2024 EXAMINATION: RADIOLOGY CONSULTATION ON OUTSIDE IMAGING STUDY STUDY INITIALLY PERFORMED: [place] [facility] [place] TYPE OF STUDY: Multiple CT images of the head without contrast are provided at the time of this interpretation. CONTRAST ROUTE: No contrast was administered. The protocol was adequate to address the clinical question. The outside final report was not available at the time of this second opinion interpretation. TYPE OF CONSULTATION: Consult on outside imaging study with images submitted through Outside Image Sharing Service DATE OF CONSULTATION: 08/22/2024 4:26 PM HISTORY: 58-year-old woman with headache. COMPARISON: None available. FINDINGS: There is no acute intracranial hemorrhage. Ventricles are of normal size and morphology. No mass effect or midline shift is present. The estrella-white matter differentiation is normal. The visualized portions of the orbits are normal. The visualized portions of the mastoids are normal. The visualized portions of the paranasal sinuses are normal. No fractures are identified. IMPRESSION: No acute intracranial process. The findings, conclusions and recommendations within this report do not replace the initial findings, conclusions and recommendations made at the facility where the study was performed based upon the imaging and clinical condition at that time. Comparison with the prior report and clinical history is necessary. The provided images may or may not represent the [place] source data set and thus may contain changes that may lower the accuracy of this second-opinion interpretation. Dictated by: Campbell De Luna M.D. The radiology attending physician has personally reviewed this study, and had reviewed and/or edited this written report and agrees with it. Electronically signed by: Luc Linares M.D. Ph.D. us Josie Clarke MD IMG CT PROCEDURES Final Result * Neuro CT Outside Consult (08/22/2024 3:59 PM PRODUCT MANAGER MEDICAL DEVICE) Anatomical Region Laterality Modality N/A Computed Tomogra phy 08/22/2024 4:15 PM PRODUCT MANAGER MEDICAL DEVICE Impressions 08/22/2024 4:15 PM PRODUCT MANAGER MEDICAL DEVICE This study was initially nominated as a consult on outside images via Outside Image Sharing Service. However, a consult was not performed because no images are associated with this accession number. Accordingly, there will be no separate report of this study generated by a [facility] Radiologist. Electronically signed by: Tessy Damico M.D. Narrative 08/22/2024 4:15 PM PRODUCT MANAGER MEDICAL DEVICE EXAMINATION: CHANGE CONSULT ON OUTSIDE IMAGES TO REFERENCE IMAGES Procedure Note Tessy Cervantes MD - 08/22/2024 EXAMINATION: CHANGE CONSULT ON OUTSIDE IMAGES TO REFERENCE IMAGES IMPRESSION: This study was initially nominated as a consult on outside images via Outside Image Sharing Service. However, a consult was not performed because no images are associated with this accession number. Accordingly, there will be no separate report of this study generated by a [facility] Radiologist. Electronically signed by: Tessy Damico M.D. us Josie Clarke MD [facility] [place] PROCEDURES Final Result * (ABNORMAL) eGFR (08/22/2024 2:38 PM PRODUCT MANAGER MEDICAL DEVICE) eGFR 38(L) >=60 mL/min/1. 73 m2 Comment: Interpretive Data Reference Interval Normal >/= 90 mL/min/1.73m2 Mildly decreased* 60 - 89 mL/min/1.73m2 Mildly to moderately decreased 45 - 59 mL/min/1.73m2 Moderately to severely decreased 30 - 44 mL/min/1.73m2 Severely decreased 15 - 29 mL/min/1.73m2 Kidney Failure < 15 mL/min/1.73m2 *Relative to young adult level Estimated glomerular filtration rate is determined by the 2020 CKD-EPI equation recommended by the National Kidney Foundation (A Unifying Approach to GFR Estimation: Recommendations of the NKF-ASK Task Force on Reassessing the Inclusion of Race in Diagnosing Kidney Disease, JASN 202). The CKD-EPI equation should not be used for patients with unstable renal function and has not been validated in children and those over 70. Current interpretive data was last reviewed 2021. Blood 08/22/2024 2:38 PM PRODUCT MANAGER MEDICAL DEVICE 08/22/2024 2:43 PM PRODUCT MANAGER MEDICAL DEVICE us Josie Clarke MD LAB BLOOD ORDERABLES Final Resul t Performing Organization Address [facility] de Phone Number [facility] [place] [place] [address] * Protime-INR (08/22/2024 2:38 PM PRODUCT MANAGER MEDICAL DEVICE) PT 11.9 9.7 - 13.0 sec INR 1.10 0.90 - 1.20 [facility] Comment: Interpretive data Oral anticoagulant therapeutic ranges: Venous thromboembolism prophylaxis or treatment: 2.0-3.0 CARDIOLOGY Standard range: 2.0-3.0 High-intensity range: 2.5-3.5 Refer to indication-specific guidelines for appropriate target ranges for prosthetic heart valve replacement. Current interpretive data was last revised on 2019. Blood 08/22/2024 2:38 PM PRODUCT MANAGER MEDICAL DEVICE 08/22/2024 3:20 PM PRODUCT MANAGER MEDICAL DEVICE us Josie Clarke MD LAB BLOOD ORDERABLES Final Resul t Performing Organization Address [facility] de Phone Number [facility] [place] [employer] [place] [address] * (ABNORMAL) CBC without differential (08/22/2024 2:38 PM PRODUCT MANAGER MEDICAL DEVICE) WBC 4.9 3.8 - 9.9 K/cumm Comment:Testing performed by : [facility], [address] [place] [phone] Hgb 11.8(L) 11.9 - 15.5 g/dL [facility] Comment:Testing performed by : [facility], [address] [place] [address] Hct 36.4 35.6 - 45.5 % [facility] Comment:Testing performed by : [facility], [address] [place] [address] Plt 226 150 - 400 K/cumm CERNICO JEFFERSON Comment:Testing performed by : [facility], [address] [place] [address] MPV 8.1 6.8 - 10.4 fL [facility] Comment:Testing performed by : [facility], [address] [place] [address] RBC 4.04 3.90 - 5.20 M/cumm [facility] Comment:Testing performed by : [facility], [address] [place] [address] MCV 90.1 81.3 - 96.4 fL [facility] Comment:Testing performed by : [facility], [address] [place] [address] MCH 29.2 27.1 - 33.3 pg [facility] Comment:Testing performed by : [facility], [address] [place] [address] MCHC 32.4 32.3 - 35.7 g/dL [facility] Comment:Testing performed by : [facility], [address] [place] [address] RDW CV 13.9 11.1 - 14.9 % [facility] Comment:Testing performed by : [facility], [address] [place] [address] Blood 08/22/2024 2:38 PM PRODUCT MANAGER MEDICAL DEVICE 08/22/2024 2:42 PM PRODUCT MANAGER MEDICAL DEVICE us Josie Clarke MD LAB BLOOD ORDERABLES Final Resul t [facility] Department [place] [address] * TSH (08/22/2024 2:38 PM PRODUCT MANAGER MEDICAL DEVICE) Thyroid Stimulating Hormone 0.72 0.30 - 4.20 mcIUnit/mL Blood 08/22/2024 2:38 PM PRODUCT MANAGER MEDICAL DEVICE 08/22/2024 2:43 PM PRODUCT MANAGER MEDICAL DEVICE us Josie Clarke MD LAB BLOOD ORDERABLES Final Resul t [facility] Department [place] [address] * (ABNORMAL) Comprehensive metabolic panel (08/22/2024 2:38 PM PRODUCT MANAGER MEDICAL DEVICE) Sodium 141 135 - 145 mmol/L Potassium, pl 3.4 3.3 - 4.9 mmol/L [facility] Chloride 108 97 - 110 mmol/L [facility] CO2 26 22 - 32 mmol/L [facility] Anion gap 7 2 - 15 mmol/L [facility] BUN 26(H) 6 - 25 mg/dL [facility] Creatinine 1.57(H) 0.60 - 1.10 mg/dL [facility] Glucose 103 70 - 199 mg/dL [facility] Comment: Interpretive Data Fasting glucose >/= 126 mg/dl is diagnostic for diabetes. Fasting is defined as no caloric intake for at least 8 hours. Fasting glucose between 100 mg/dl to 125 mg/dl is diagnostic of prediabetes. In a patient with classic symptoms of hyperglycemia or hyperglycemic crisis, a random glucose >/= 200 mg/dl is diagnostic for diabetes. In the absence of unequivocal hyperglycemia, results should be confirmed by repeat testing. The classification and Diagnosis of Diabetes Diabetes Care 2021; 46: S19-S40. Current interpretive data was last revised 2022. Calcium 8.9 8.5 - 10.3 mg/dL [facility] Bilirubin, total 0.6 0.1 - 1.2 mg/dL [facility] Protein, pl 7.2 6.5 - 8.5 g/dL [facility] Albumin 3.8 3.5 - 5.0 g/dL [facility] Alk phos 192(H) 40 - 130 Units/L [facility] ALT 8 7 - 45 Units/L [facility] AST 21 10 - 45 Units/L [facility] Blood 08/22/2024 2:38 PM PRODUCT MANAGER MEDICAL DEVICE 08/22/2024 2:43 PM PRODUCT MANAGER MEDICAL DEVICE us Josie Clarke MD LAB BLOOD ORDERABLES Final Resul t [facility] Department [place] [address] * US Thyroid (08/22/2024 9:59 AM PRODUCT MANAGER MEDICAL DEVICE) Anatomical Region Laterality Modality Head and Neck N/A Ultrasound 08/22/2024 10:2 4 AM PRODUCT MANAGER MEDICAL DEVICE Impressions 08/22/2024 12:53 PM PRODUCT MANAGER MEDICAL DEVICE 1. Findings suspicious for multifocal papillary thyroid carcinoma involving the right and left thyroid lobes, with diffuse involvement of the right thyroid lobe and suspicion for gross extrathyroidal extension posterior to the thyroid on the right. The patient's hoarseness and coughing during the examination are concerning for right recurrent laryngeal nerve involvement. Tracheal involvement cannot be excluded. 2. 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 A suspicious deep central compartment lymph node with calcification noted on prior CT was obscured by the sternum on ultrasound. 3. No left cervical lymphadenopathy. ACR TI-RADS recommendations FNA should only be recommended on a maximum of 2 nodules. A recommendation for follow-up should only be provided for a maximum of 4 nodules. TR5 (>=7 points) (risk of malignancy > 20%) >=1 cm: FNA 0.5-0.9 cm: follow-up US every year for 5 years <0.5 cm: no further evaluation TR4 (4-6 points) (risk of malignancy 5-20%) >=1.5 cm: FNA 1-1.4 cm: follow-up US in 1, 2, 3, and 5 years <1.0 cm: no further evaluation TR3 (3 points) (risk of malignancy 2-5%) >=2.5 cm: FNA 1.5-2.4 cm: follow-up US in 1, 3, and 5 years <1.5 cm: no further evaluation TR2 (2 points) and TR1 (0 points) (risk of malignancy < 2%) No FNA or follow-up US Dictated by: Patrick Sosa MD The radiology attending physician has personally reviewed this study, and had reviewed and/or edited this written report and agrees with it. Electronically signed by: Nigel Ruiz M.D. Narrative 08/22/2024 12:53 PM PRODUCT MANAGER MEDICAL DEVICE EXAMINATION: THYROID SONOGRAM HISTORY: 58-year-old woman undergoing evaluation for a thyroid nodule. Prior Biopsy: No Patient Risk Factors: None Prior Ultrasound: None Comparison made with outside CT of the neck dated 06/18/2024. FINDINGS: The thyroid is enlarged in size. Size right lobe: The right thyroid lobe is difficult to measure, with approximate dimensions of 5.5 cm craniocaudal, 2.8 cm transverse, 2.6 cm AP. Size left lobe: 3.7 cm craniocaudal, 1.5 cm transverse, 1.7 cm AP. Size isthmus: 0.4 cm AP. Estimated total number of nodules >/= 1 cm: 1 Number of spongiform nodules >/= 2 cm not described below (TR1): 0 Number of mixed cystic and solid nodules >/= 1.5 cm not described below (TR2): 1 Nodule 1: Location: Right mid . Size: This nodule is difficult to measure, with a approximate maximal dimension of 2.4 cm. Maximum Size: 2.4 cm Composition: Solid/almost completely solid (2) Echogenicity: Very hypoechoic (3) Shape: Taller than wide (3) Margins: Lobulated/irregular (2) and suspicious for gross extrathyroidal extension deep to the thyroid. Echogenic foci: None (0) Additional Echogenic foci 1: None (0) Additional Echogenic foci 2: None (0) ACR TI-RADS total points: 10 ACR TI-RADS risk category: TR5 (7 or more points) Follow-up details: Prior biopsy: No ACR TI-RADS recommendation: US-guided fine needle aspiration The right thyroid lobe is diffusely abnormal with multiple punctate echogenic foci. During evaluation of these nodules, the patient demonstrated a hoarseness and frequent coughing, suspicious for right recurrent laryngeal nerve involvement. Extension to the trachea cannot be excluded. There are at least 2 additional hypoechoic nodules within the right thyroid lobe. Nodule 2: Location: Left mid . Size: 0.7 cm craniocaudal x 0.6 cm transverse x 0.5 cm AP Maximum Size: 0.7 cm Composition: Solid/almost completely solid (2) Echogenicity: Hypoechoic (2) Shape: Taller than wide (3) Margins: Lobulated/irregular (2) Echogenic foci: Punctate echogenic foci (3) Additional Echogenic foci 1: Macrocalcifications (1) Additional Echogenic foci 2: None (0) ACR TI-RADS total points: 13 ACR TI-RADS risk category: TR5 (7 or more points) Follow-up details: Prior biopsy: No ACR TI-RADS recommendation: US-guided fine needle aspiration Additional findings: There are multiple enlarged, abnormal right cervical lymph nodes in levels 2, 3, 4, 5A, and 5b. For example, superolateral to the right thyroid, there is a enlarged round lymph node measuring 1.9 x 1.1 x 1.5 cm with heterogeneous echotexture, punctate echogenic foci, and diffuse/peripheral blood flow in a pattern of metastatic sandro disease (image 51 and 52). There is a prominent right level 4 lymph node measuring 1.5 x 0.7 cm. A deep level 6/superior mediastinal cervical lymph node previously seen on CT is not seen on ultrasound. Procedure Note Nigel Ruiz MD - 08/22/2024 EXAMINATION: THYROID SONOGRAM HISTORY: 58-year-old woman undergoing evaluation for a thyroid nodule. Prior Biopsy: No Patient Risk Factors: None Prior Ultrasound: None Comparison made with outside CT of the neck dated 06/18/2024. FINDINGS: The thyroid is enlarged in size. Size right lobe: The right thyroid lobe is difficult to measure, with approximate dimensions of 5.5 cm craniocaudal, 2.8 cm transverse, 2.6 cm AP. Size left lobe: 3.7 cm craniocaudal, 1.5 cm transverse, 1.7 cm AP. Size isthmus: 0.4 cm AP. Estimated total number of nodules >/= 1 cm: 1 Number of spongiform nodules >/= 2 cm not described below (TR1): 0 Number of mixed cystic and solid nodules >/= 1.5 cm not described below (TR2): 1 Nodule 1: Location: Right mid . Size: This nodule is difficult to measure, with a approximate maximal dimension of 2.4 cm. Maximum Size: 2.4 cm Composition: Solid/almost completely solid (2) Echogenicity: Very hypoechoic (3) Shape: Taller than wide (3) Margins: Lobulated/irregular (2) and suspicious for gross extrathyroidal extension deep to the thyroid. Echogenic foci: None (0) Additional Echogenic foci 1: None (0) Additional Echogenic foci 2: None (0) ACR TI-RADS total points: 10 ACR TI-RADS risk category: TR5 (7 or more points) Follow-up details: Prior biopsy: No ACR TI-RADS recommendation: US-guided fine needle aspiration The right thyroid lobe is diffusely abnormal with multiple punctate echogenic foci. During evaluation of these nodules, the patient demonstrated a hoarseness and frequent coughing, suspicious for right recurrent laryngeal nerve involvement. Extension to the trachea cannot be excluded. There are at least 2 additional hypoechoic nodules within the right thyroid lobe. Nodule 2: Location: Left mid . Size: 0.7 cm craniocaudal x 0.6 cm transverse x 0.5 cm AP Maximum Size: 0.7 cm Composition: Solid/almost completely solid (2) Echogenicity: Hypoechoic (2) Shape: Taller than wide (3) Margins: Lobulated/irregular (2) Echogenic foci: Punctate echogenic foci (3) Additional Echogenic foci 1: Macrocalcifications (1) Additional Echogenic foci 2: None (0) ACR TI-RADS total points: 13 ACR TI-RADS risk category: TR5 (7 or more points) Follow-up details: Prior biopsy: No ACR TI-RADS recommendation: US-guided fine needle aspiration Additional findings: There are multiple enlarged, abnormal right cervical lymph nodes in levels 2, 3, 4, 5A, and 5b. For example, superolateral to the right thyroid, there is a enlarged round lymph node measuring 1.9 x 1.1 x 1.5 cm with heterogeneous echotexture, punctate echogenic foci, and diffuse/peripheral blood flow in a pattern of metastatic sandro disease (image 51 and 52). There is a prominent right level 4 lymph node measuring 1.5 x 0.7 cm. A deep level 6/superior mediastinal cervical lymph node previously seen on CT is not seen on ultrasound. IMPRESSION: 1. Findings suspicious for multifocal papillary thyroid carcinoma involving the right and left thyroid lobes, with diffuse involvement of the right thyroid lobe and suspicion for gross extrathyroidal extension posterior to the thyroid on the right. The patient's hoarseness and coughing during the examination are concerning for right recurrent laryngeal nerve involvement. Tracheal involvement cannot be excluded. 2. 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 A suspicious deep central compartment lymph node with calcification noted on prior CT was obscured by the sternum on ultrasound. 3. No left cervical lymphadenopathy. ACR TI-RADS recommendations FNA should only be recommended on a maximum of 2 nodules. A recommendation for follow-up should only be provided for a maximum of 4 nodules. TR5 (>=7 points) (risk of malignancy > 20%) >=1 cm: FNA 0.5-0.9 cm: follow-up US every year for 5 years <0.5 cm: no further evaluation TR4 (4-6 points) (risk of malignancy 5-20%) >=1.5 cm: FNA 1-1.4 cm: follow-up US in 1, 2, 3, and 5 years <1.0 cm: no further evaluation TR3 (3 points) (risk of malignancy 2-5%) >=2.5 cm: FNA 1.5-2.4 cm: follow-up US in 1, 3, and 5 years <1.5 cm: no further evaluation TR2 (2 points) and TR1 (0 points) (risk of malignancy < 2%) No FNA or follow-up US Dictated by: Patrick Sosa MD The radiology attending physician has personally reviewed this study, and had reviewed and/or edited this written report and agrees with it. Electronically signed by: Nigel Ruiz M.D. us Josie Clarke MD IMG US PROCEDURES Final Result * Screening Mammogram Bilateral W Bob (07/14/2021 8:39 AM PRODUCT MANAGER MEDICAL DEVICE) Anatomical Region Laterality Modality Breast Bilateral Mammography 07/14/2021 9:28 AM PRODUCT MANAGER MEDICAL DEVICE Impressions 07/14/2021 9:28 AM PRODUCT MANAGER MEDICAL DEVICE There is no mammographic evidence of malignancy. Routine screening mammography is recommended in 1 year. BI-RADS: 1 - Negative. The patient will be entered into a reminder system with a target due date of 1 year for her next mammogram. Electronically signed by: Williams Cesar M.D. Narrative 07/14/2021 9:28 AM PRODUCT MANAGER MEDICAL DEVICE EXAMINATION: SCREENING MAMMOGRAM BILATERAL W BOB ORDERING HEALTHCARE PROVIDER: SELF REFERRAL HISTORY: New baseline screening mammography. COMPARISON: None available. TECHNIQUE: CC and MLO views of the bilateral breasts were obtained with digital technique using breast tomosynthesis with C view. Computer aided detection was utilized. FINDINGS: DENSITY: The tissue of the bilateral breasts is almost entirely fatty. BREASTS: There are no suspicious masses, suspicious calcifications, or other suspicious findings in either breast. us Self Referral IMG MAMMO PROCEDURES Final Resul t * Lipid panel (11/12/2019 11:33 AM CDT) Cholesterol 176 30 - 199 mg/dL GIO TUCKER (JOANNE) Comment: Interpretive Data Ages < or = 19 years Acceptable: <170 mg/dL Borderline high: 170-199 mg/dL High: >or= 200 mg/dL Ages > or = 20 years Desirable: <200 mg/dL Borderline high: 200-239 mg/dL High: >or= 240 mg/dL Literature References: 1. Expert Panel on Integrated Guidelines for Cardiovascular Health and Risk Reduction in Children and Adolescents. Pediatrics 2011;128:S213 2. NCEP Expert Panel. Circulation 2004;110:227 Current Interpretive Data was last revised on 2018. Triglycerides 50 <=149 mg/dL GIO TUCKER (JOANNE) Comment: Interpretive Data Ages < or = 9 years Acceptable: <75 mg/dL Borderline high: 75-99 mg/dL High: >or= 100 mg/dL Ages 10 to 20 years Acceptable: <90 mg/dL Borderline high: 90-129 mg/dL High: >or= 130 mg/dL Ages > or = 20 years Desirable: <150 mg/dL Borderline high: 150-199 mg/dL High: 200-499 mg/dL Very high: >or= 499 mg/dL Literature References: 1. Expert Panel on Integrated Guidelines for Cardiovascular Health and Risk Reduction in Children and Adolescents. Pediatrics 2011;128:S213 2. NCEP Expert Panel. Circulation 2004;110:227 Current Interpretive Data was last revised on 2018. HDL 57 >=40 mg/dL GIO Hernandez (JOANNE) Comment: Interpretive Data Ages < or = 19 years Acceptable: >45 mg/dL Borderline low: 40-45 mg/dL Low: <40 mg/dL Ages > or = 20 years Desirable: >or= 60 mg/dL Low: <40 mg/dL Literature References: 1. Expert Panel on Integrated Guidelines for Cardiovascular Health and Risk Reduction in Children and Adolescents. Pediatrics 2011;128:S213 2. NCEP Expert Panel. Circulation 2004;110:227 Current Interpretive Data was last revised on 2018. LDL, calculated 109 <=129 mg/dL GIO TUCKER (JOANNE) Comment: Interpretive Data Ages < or = 19 years Acceptable: <110 mg/dL Borderline high: 110-129 mg/dL High: >or= 130 mg/dL Ages > or = 20 years Optimal: <100 mg/dL Near optimal: 100-129 mg/dL Borderline high: 130-159 mg/dL High: >160 mg/dL Literature References: 1. Expert Panel on Integrated Guidelines for Cardiovascular Health and Risk Reduction in Children and Adolescents. Pediatrics 2011;128:S213 2. NCEP Expert Panel. Circulation 2004;110:227 Current Interpretive Data was last revised on 2018. Non-HDL Cholesterol 119 mg/dL GIO TUCKER (JOANNE) Comment: Interpretive Data Ages < or = 19 years Acceptable: <120 mg/dL Borderline high: 120-144 mg/dL High: >145 mg/dL Ages > or = 20 years When triglycerides are >200 mg/dL, Non-HDL cholesterol is a secondary target of therapy with treatment goals that are 30 mg/dL greater than the LDL cholesterol target. Literature References: 1. Expert Panel on Integrated Guidelines for Cardiovascular Health and Risk Reduction in Children and Adolescents. Pediatrics 2011;128:S213 2. NCEP Expert Panel. Circulation 2004;110:227 Current Interpretive Data was last revised on 2018. Chol/HDL ratio 3 TOM TUCKER (JOANNE) Blood specimen (specimen) 11/12/2019 11:33 AM CDT 11/12/2019 12:19 PM CDT us Romie LEON LAB BLOOD ORDERABLES Final Re sult [facility] ([place]) [facility] Department [place] [address] from Last 3 Months or Most Recently Relevant to Health Maintenance Insurance MEDICARE ADVANTAGE [facility] MEDICARE ADVANTAGE IDPA [facility] MEDICARE ADVANTAGE IDPA Advance Directives For more information, please contact: [phone] * Full Code (Latest Code Status on File) Date Activated Date Inactivated Comments 09/30/2024 8:54 PM 10/02/2024 6:14 PM * Full Code Date Activated Date Inactivated Comments 02/21/2023 10:44 AM 02/21/2023 5:20 PM Care Teams Crutch Maker Relationship Specialty Start Date End Date Romie Laboy PA [address] [place] [address] PCP - General 12/06/16
--- OUTSIDE RECORDS SUMMARY | 2024-10-14 17:03 | XMS_ITS | Encounter Summary ---
Author Organization [facility] Address [address] [facility] [address] [place] [address] Phone Care Team Providers Care Crab Steamer Name Role Phone Romie Laboy Primary Care Provider [phone] Reason for Visit * Reason Onset Date Comments Medical Question/Miscellaneous 10/14/2024 Encounter Details Date Type Department Care Team (Late st Contact Info) Description 10/14/2024 Telephone [facility] [address] [facility] Floor [address] [place] [address] Josie Clarke MD [address] [facility] [id number] [place] [address] Medical Question/Miscellaneous Social History Tobacco Use Types [...] on file 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 No Reason for call?: Patient is calling to talk to Dr Josie Clarke's nurse about her drain tube ,according to the patient urine is passing through her drain tube . Please call back Who is the caller: Patient What is the best number for them to contact for a call back: [phone] Last office visit: 10/09/2024 Date of Surgery: 09/30/2024 documented in this encounter Plan of Treatment Not on file documented as of this encounter Visit Diagnoses Not on filedocumented in this encounter Care Teams Crab Steamer Relationship Specialty Start Date End Date Romie Laboy PA [address] [place] [address] PCP - General 12/06/16 documented as of this encounter
--- OUTSIDE RECORDS SUMMARY | 2024-10-14 17:03 | XMS_ITS | Encounter Summary ---
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 Pt reports the output smells ofurine and looks like urine. Pt reports she is retaining more fluid than usual and is having decreased urinary output. Called back to discuss in further detail with patient but she did not answer. I requested a call back to the office. Babs Lockhart RN Clinical Nurse Coordinator to Dr. Bridger Mcclain and Dr. Josie Clarke [facility] Department of Surgery - Division of Surgical Oncology documented in this encounter Plan of Treatment Not on file documented as of this encounter Visit Diagnoses Not on filedocumented in this encounter Care Teams Mini Bar Attendant Relationship Specialty Start Date End Date Romie Laboy PA [address] [place] [address] PCP - General 12/06/16 documented as of this encounter
--- OUTSIDE RECORDS SUMMARY | 2024-10-14 17:03 | XMS_ITS ---
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 Refer to [...] pain 02/21/2023 Coronary artery disease invo lving anvik coronary artery of anvik heart 01/26/2023 Calculus of gallbladder with out cholecystitis without obstruction 01/04/2022 Overview (01/04/2022): Added automatically from request for surgery [id number] Incisional hernia, without obstruction or gangre ne 01/04/2022 Overview (01/04/2022): Added automatically from request for surgery [id number] Current Treatment and Therapy Plans No current plan information found. Past Treatment and Therapy Plans No past plan information found. Lifetime Dose Tracking * Chemical Lifetime Dose Automatic Entry Manual Entr y Air kerma at the reference point (Ka,r) 524 mGy 0 mGy 524 mGy DLP 887 mGycm 887 mGycm 0 mGycm
--- OUTSIDE RECORDS SUMMARY | 2024-10-14 17:03 | XMS_ITS | Encounter Summary ---
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 Per Dr. Clarke, pt should go to lab for BMP and update PCP. Notified pt of Dr. Clarke's requests. Pt going to [facility] for lab testing. Babs Lockhart RN Clinical Nurse Coordinator to Dr. Bridger Mcclain and Dr. Josie Clarke [facility] Department of Surgery - Division of Surgical Oncology documented in this encounter Plan of Treatment Not on file documented as of this encounter Visit Diagnoses Not on filedocumented in this encounter Care Teams Nursing Admin Relationship Specialty Start Date End Date Romie Laboy PA [address] [place] [address] PCP - General 12/06/16 documented as of this encounter
--- OUTSIDE RECORDS SUMMARY | 2024-10-14 17:03 | XMS_ITS | Encounter Summary ---
Author Organization [facility] Address [address] [place] [address] Care Team Providers Care Spanish Teacher Name Role Phone Romie Laboy Primary Care Provider [phone] Reason for Visit * Diagnostic Imaging (Routine) - Closed Specialty Diagnoses / Procedures Referred By Jac t Referred To Contact Diagnoses Left shoulder pain, unspecified chronicity Procedures XR Shoulder Left 2 or More Views XR Shoulder Left 1 View Hina Crespo PA [address] [place] [address] Phone: tel: fax: Referral ID Status Reason Start Date Expiration Date Visits Re quested Visits Authorized [id number] Closed 04/11/2023 05/10/2024 1 1 Encounter Details Date Type Department Care Team (Late st Contact Info) Description 04/11/2023 7:53 AM CDT Hospital Encounter [facility] Medical Group Orthopedics and Sports Medicine [address] [place] [address] [place] [id number] Social History Tobacco Use Types Packs/Day Years [...] on file 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 Never 09/30/2024 12:00 PM Ayala Avila RN Q2: How many drinks containing alcohol do you have on a typical day when you are drinking? Patient does not drink 09/30/2024 12:00 PM Ayala Avila RN Q3: How often do you have six or more drinks on one occasion? Never 09/30/2024 12:00 PM Ayala Avila RN documented as of this encounter Plan of Treatment Not on file documented as of this encounter Procedures Procedure Name Priority Date/Time Associated Diagnosis Comments XR SHOULDER LEFT 2 OR MORE VIEWS Routine 04/11/2023 3:06 PM CDT Left shoulder pain, unspecified chronicity documented in this encounter Results * XR Shoulder Left 2 or More Views (04/11/2023 3:06 PM CDT) Anatomical Region Laterality Modality Upper Extremities, Shoulder Left Digi marie Radiography Narrative 04/11/2023 6:19 PM CDT Radiographs of the left shoulder reviewed and interpreted. No acute fractures, subluxation/dislocation, or destructive osseous lesions. Mild degenerative changes seen of the acromioclavicular joint. Glenohumeral joint space is maintained Hina LEON IMG XR PROCEDURES Final Result documented in this encounter Visit Diagnoses Not on filedocumented in this encounter Care Teams Spanish Teacher Relationship Specialty Start Date End Date Romie Laboy PA [address] [place] [address] PCP - General 12/06/16 documented as of this encounter
--- OUTSIDE RECORDS SUMMARY | 2024-10-14 17:03 | XMS_ITS | Encounter Summary ---
Author Organization [facility] Address [address] [facility] [address] [place] [address] Phone Care Team Providers Care Medical Records Specialist Name Role Phone Romie Laboy Primary Care Provider [phone] Reason for Visit * Reason Onset Date Comments Medical Question/Miscellaneous 09/15/2024 Encounter Details Date Type Department Care Team (Late st Contact Info) Description 09/15/2024 Telephone [facility] Surgery [address] [facility] Floor [address] [place] [address] Josie Clarke MD [address] [facility] [id number] [place] [address] Medical Question/Miscellaneous Social History Tobacco Use Types Packs/Day Years Used Date Smoking Tobacco: Never Smokeless Tobacco: Never AUDIT-C Answer Date Recorded Q1: How often do you have a drink containing alcohol? Never 02/10/2022 Q2: How many drinks containi ng alcohol do you have on a typical day when you are drinking? Patient does not drink Frequency of Binge Drinking Not on file 11/2021 Personal Safety Answer Date Recorded Have you ever been in or are you currently in a harmful physical or emotional relationship or is someone making you feel afraid or unsafe? 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 No Reason for call?: Patient is calling to talk to Dr Clarke's nurse according to her she had taken twoshots prescribed by Dr Clarke before her PET Scan and now she is suffering from extreme constipation. Please call back Who is the caller: Patient What is the best number for them to contact for a call back: [phone] documented in this encounter Plan of Treatment Not on file documented as of this encounter Visit Diagnoses Not on filedocumented in this encounter Care Teams Medical Records Specialist Relationship Specialty Start Date End Date Romie Laboy PA [address] [place] [address] PCP - General 12/06/16 documented as of this encounter
--- OUTSIDE RECORDS SUMMARY | 2024-10-14 17:03 | XMS_ITS | Data Portability ---
Author Organization [facility] Sydni [facility] Address [address] [place] [address] Care Team Providers Care Door To Door Sales Representative Name Role Phone RONNI LABOY Primary Care Provider [phone] BRANDON AGEE Assistant Front Desk Manager Unavailable Assessment No assessment recorded. Plan of Treatment Reminders Order Date Submit Date Provider Last Modified By Organization Details Last Modified Time Details Appointments None recorded. Lab urinalysis , dipstick 2024 025 maxim In-Office Order, Internal Use Only DO Not Attach Compendium DO Not Attach Compendium, Do Not Delete/merge, [id number] 12:05:23 Referral physical therapist referral [address] [facility], [address] [place], [address], 5 17:38:59 oncologist referral 2024 025 [facility], [address] [place] [address], [address], 5 09:37:33 pulmonolog ist referral 2023 024 ENTTIE Lowe MD, [address] [place] [address], [facility] [address], [place], [address], 5 09:34:19 endocrinol ogy referral 2023 024 louis Espinoza, [address] [facility]. [address], [place], [address], 17:06:07 Procedures None recorded. Surgeries None recorded. Imaging None recorded. Medication Orders hydrochlor othiazide 25 mg tablet 2024 025 [facility]/Pharmacy #[id number], [address] [place], [address], 15:36:12 azithromyc in 500 mg tablet 2024 025 [facility]/Pharmacy #[id number], [address] [place], [address], 15:17:29 Cipro 500 mg tablet 2024 025 [facility]/Pharmacy #[id number], [address] [place], [address], 15:58:22 Patient TargetsNo targets recorded. Patient Instructions Encounter Date Encounter Id Patient Instructions Last Modified By Organization Details Last Modified Time 06/20/2024 [id number] thyroid nodules: care instructions jnanney Not available 06/20/2024 12:12:03 A healthy lifestyle: care instructions jnanney Not available 06/20/2024 12:12:03 07/07/2024 [id number] postconcussion syndrome: care instructions jnanney Not available 07/07/2024 14:32:34 A healthy lifestyle: care instructions jnanney Not available 07/07/2024 14:32:34 08/05/2024 [id number] thyroid nodules: care instructions jnanney Not available 08/05/2024 12:05:23 painful urinatio n (dysuria): care instructions jnanney Not available 08/05/2024 12:05:23 A healthy lifestyle: care instructions jnanney Not available 08/05/2024 12:10:25 08/29/2024 [id number] A healthy lifestyle: care instructions jnanney Not available 08/29/2024 16:20:16 10/08/2024 [id number] body mass index: care instructions jnanney Not available 10/08/2024 15:36:06 learning about healthy weight jnanney Not available 10/08/2024 15:36:06 A healthy lifestyle: care instructions jnanney Not available 10/08/2024 15:36:06 learning about high blood pressure jnanney Not available 10/08/2024 15:36:06 thyroidectomy: before your surgery jnanney Not available 10/08/2024 15:36:06 Reason for Referral [employer] Referral for M ediastinal lymphadenopathy [facility]: [facility]24 Endocrinology Referral for T hyroid nodule Referring Physician: Ronni Laboy [facility], Encounter Date: 06/20/2024 Referring Physician: Ronni medina [facility], Encounter Date: 08/05/2024 Physical Therapist Referral for Muscle weakness Referring Physician: Ronni Laboy [facility], Encounter Date: 10/08/2024 Results Created Date Observation Date Name Description Value Unit Range Abnormal Flag Note LastModifiedBy Organization Detail LastModifiedTime 08/05/1908/05/2024 urina lysis , dipst ick Leukocytes Modera te Not Available In-Office Order Internal Use Only DO Not Attach Compendium DO Not Attach Compendium, Do Not Delete/merge, [id number] 08/05/2024 11:33:19 08/05/1908/05/2024 urina lysis , dipst ick Nitrite negati ve Not Available In-Office Order Internal Use Only DO Not Attach Compendium DO Not Attach Compendium, Do Not Delete/merge, [id number] 08/05/2024 11:33:19 08/05/1908/05/2024 urina lysis , dipst ick Urobilinogen .2 Not Available In-Of fice Order Internal Use Only DO Not Attach Compendium DO Not Attach Compendium, Do Not Delete/merge, [id number] 08/05/2024 11:33:19 08/05/1908/05/2024 urina lysis , dipst ick Protein Trace Not Available In-Office Order Internal Use Only DO Not Attach Compendium DO Not Attach Compendium, Do Not Delete/merge, 08/05/2024 11:33:19 08/05/19 25 08/05/2024 urina lysis , dipst ick pH 6.0 Not Available In-Office Order Internal Use Only DO Not Attach Compendium DO Not Attach Compendium, Do Not Delete/merge, 08/05/2024 11:33:19 08/05/19 25 08/05/2024 urina lysis , dipst ick Blood Negati ve Not Available In-Office Order Internal Use Only DO Not Attach Compendium DO Not Attach Compendium, Do Not Delete/merge, 08/05/2024 11:33:19 08/05/19 25 08/05/2024 urina lysis , dipst ick Specific [place] 1.030 Not Available In-Off ice Order Internal Use Only DO Not Attach Compendium DO Not Attach Compendium, Do Not Delete/merge, 08/05/2024 11:33:19 08/05/19 25 08/05/2024 urina lysis , dipst ick Ketone Negati ve Not Available In-Office Order Internal Use Only DO Not Attach Compendium DO Not Attach Compendium, Do Not Delete/merge, 08/05/2024 11:33:19 08/05/1908/05/2024 urina lysis , dipst ick Bilirubin Small Not Available In-Offic e Order Internal Use Only DO Not Attach Compendium DO Not Attach Compendium, Do Not Delete/merge, 08/05/2024 11:33:19 08/05/1908/05/2024 urina lysis , dipst ick Glucose Negati ve Not Available In-Office Order Internal Use Only DO Not Attach Compendium DO Not Attach Compendium, Do Not Delete/merge, 08/05/2024 11:33:19 08/05/19 25 08/05/2024 urina lysis , dipst ick Appearance Clear Not Available In-Offi ce Order Internal Use Only DO Not Attach Compendium DO Not Attach Compendium, Do Not Delete/merge, 08/05/2024 11:33:19 08/05/19 25 08/05/2024 urina lysis , dipst ick Color Yellow Not Available In-Office Order Internal Use Only DO Not Attach Compendium DO Not Attach Compendium, Do Not Delete/merge, [id number] 08/05/2024 11:33:19 09/26/1909/25/2024 Hemog lobin A1c/H emogl obin. total in Blood hemoglobin A1C/hemoglob in.total in blood 6.5 % low: 4%high : 5.6% high Hgb A1C, POC 6.5 (H) 4.0 - 5.6 % Not Available Not Available 09/29/2024 11:16:07 09/26/19 25 09/25/2024 Hemog lobin A1c/H emogl obin. total in Blood glucose mean value [mass/volume ] in blood estimated from glycated hemoglobin 140 mg/dL Est [place] [facility] Gluc POC 140 mg/dL [facility] Not Available Not Available 09/29/2024 11:16:07 09/26/19 25 09/25/2024 Hemog lobin A1c/H emogl obin. total in Blood interpretati on and review of laboratory results Abnorm al Not Available Not Available 11:16:07 06/18/20 24 06/18/2024 CT, brain , w/o contr ast No observ ation record ed. [facility] [address] [place], [address], 06/19/2024 09:03:00 06/18/20 24 06/18/2024 XR, knee No observ ation record ed. [facility] [address] [place], [address], 06/19/2024 09:03:24 06/18/20 24 06/18/2024 CT, cervi arsh spine , w/o contr ast No observ ation record ed. [facility] [address] [place], [address], 06/19/2024 09:03:53 06/26/20 24 06/26/2024 CT, head, w/o contr ast No observ ation record ed. [facility] [address] [place], [address], 06/26/2024 13:43:03 Result Notes None recorded. Problems Name Problem SNOMED Code Status Onset Date Resolution Date Notes Provider Name and Address Organization Details Recorded Time Knee pain Active Not Available [facility] 4 00:18:38 Morbid obesity 018603258 Active Not Available [facility] 4 00:18:38 Chronic depression 347642643 Active Not Available [facility] 4 00:18:38 Cerebrovascul ar accident 042601664 Active Not Available [facility] 4 00:18:38 Psoriasis 8217770 Active Not Available [facility] 4 00:18:38 Candidiasis of skin 96239148 Active Not Available [facility] 4 00:18:38 Hyperglycemia 44837696 Active Not Available [facility] 4 00:18:38 Right upper quadrant pain 262417574 Active Not Available [facility] 4 00:18:38 Diabetes mellitus 92188256 Active Not Available [facility] 4 00:18:38 Cellulitis 125123298 Active Not Available [facility] 4 00:18:38 Migraine 82285586 Active Not Available [facility] 4 00:18:38 Incontinence 65641088 Active Not Available [facility] 4 00:18:38 Notes:Some problems listed i n Documents: #[id number], #[id number], #[id number], #[id number], #[id number], #[id number], #[id number] could not be added to this patient's chart. Please review these documents and add these problems to the patient's chart manually as needed. Problem Notes None recorded. Procedures Surgical History Date Name Laterality Status Provider Name and Address Organization Details Recorded Time 07/14/19 22 Date of Last Mammogram completed [facility]A V[facility] 08/24/2021 11:53:00 07/09/18 97 Total hysterectomy completed [facility]ANTA V[facility]quez [facility] 10/04/2020 11:30:00 tonsillectomy completed Liza Dumont [place] [facility] 05/30/2021 10:51:03 Removal of adenoids completed Liza Dumont [place] [facility] 05/30/2021 10:51:32 abdominoplasty completed Liza Dumont [place] [facility] 05/30/2021 10:51:40 Gastric Bypass completed Serena Swenson [place] [facility] 09/13/2015 10:13:00 Imaging Results Imaging Date Name Status LastModified by Organiz ation Details LastModified Time 06/18/2024 CT, brain, w/o contrast completed [facility] [address] [place], [address], 06/19/2024 09:03:00 06/18/2024 XR, knee completed [facility] [address] [place], [address], 06/19/2024 09:03:24 06/18/2024 CT, cervical spine, w/o contrast completed [facility] [address] [place], [address], 06/19/2024 09:03:53 06/26/2024 CT, head, w/o contrast completed [facility] [address] [place], [address], 06/26/2024 13:43:03 Procedure Notes None recorded. Medical Equipment None Reported. Allergies Allergen ID Allergen Name Allergen Category Reaction Reaction Severity Criticality Documentation Date Start Date Code Code System Note Provider Name and Address Organization Details Recorded Time 671643 tetracycl ine medicatio n rash Not available Not available 11/12/2019 44166 RxNorm Not Available Not Available Not Available 751843 Bactrim medicatio n hives Not available Not available 10/04/2020 42758 9 RxNorm Vomit ing Not Available Not Available Not Available 30144 amoxicill in medicatio n rash Not available Not available 05/08/2016 723 RxNorm Not Available Not Available Not Available 56611 Medicinal product containin g tetracycl ine structure and acting as antibacte rial agent (product) medicatio n vomiting severe Not available 05/08/2016 04379 1004 SNOMED Not Available Not Available Not Available Medications Name Sig Start Date Stop Date Status Note LastModified by Organization Details LastModified Time celecoxib 200 mg capsule TAKE 1 CAPSULE BY MOUTH DAILY WITH FOOD. 2023 active Not Available Not Available Not Avai lable metformin 500 mg tablet TAKE 1 TABLET BY MOUTH TWICE DAILY 08/24 completed Not Available Not Available Not Available levothyroxi ne 175 mcg tablet TAKE 1 TABLET BY MOUTH EVERY DAY active Not Available Not Available No t Available prednisone 10 mg tablet 02/15 completed Not Available Not Available Not Available atorvastati n 20 mg tablet TAKE 1 TABLET BY MOUTH EVERY DAY 03/20 completed Not Available Not Available Not Available venlafaxine 75 mg tablet TAKE 1 TABLET BY MOUTH EVERY DAY 11/11 completed Not Available Not Available Not Available clindamycin HCl 300 mg capsule TAKE 1 CAPSULE BY MOUTH EVERY 6 HOURS FOR 10 DAYS. 04/07 completed Not Available Not Available Not Available azithromyci n 250 mg tablet TAKE 2 TABS (500MG) TODAY (DAY 1), THEN 1 TAB (250MG) FOR 4 DAYS (DAYS 2-5) 05/10 completed Not Available Not Available Not Available ibuprofen 800 mg tablet TAKE 1 TABLET BY MOUTH THREE TIMES A DAY 10/08 completed Not Available Not Available Not Available alprazolam 1 mg tablet TAKE 1 TABLET BY MOUTH THREE TIMES A DAY active Not Available Not Available No t Available metoprolol succinate ER 50 mg tablet,exte nded release 24 hr Take 1 tablet every day by oral route for 90 days. 03/20 completed Not Available Not Available Not Available hydrocodone 5 mg-acetamin ophen 325 mg tablet 04/10 completed Not Available Not Available Not Available ondansetron HCl 8 mg tablet Take 1 tablet every 12 hours by oral route as needed for 30 days. 10/04 completed Not Available Not Available Not Available fluconazole 200 mg tablet TAKE 1 TABLET EVERY 72 HOURS BY ORAL ROUTE DIRECTED. 10/08 completed Not Available Not Available Not Available meloxicam 15 mg tablet 15 mg by oral route. 12/06 completed Not Available Not Available Not Available lisinopril 20 mg tablet TAKE 1 TABLET BY MOUTH EVERY DAY 10/08 completed Not Available Not Available Not Available ondansetron HCl 4 mg tablet Take 1 tablet twice a day by oral route as needed for 10 days. 05/08 completed Not Available Not Available Not Available famotidine 40 mg tablet TAKE 1 TABLET BY MOUTH EVERY DAY 10/08 completed Not Available Not Available Not Available prednisone 20 mg tablet TWO TABLETS BY MOUTH ONCE DAILY 04/25 completed Not Available Not Available Not Available metronidazo le 500 mg tablet TAKE 1 TABLET BY MOUTH EVERY 8 HOURS FOR 10 DAYS 04/07 completed Not Available Not Available Not Available amlodipine 5 mg tablet TAKE 1 TABLET BY MOUTH EVERY DAY 08/24 completed Not Available Not Available Not Available ciprofloxac in 500 mg tablet TAKE 1 TABLET BY MOUTH EVERY 12 HOURS FOR 10 DAYS 08/29 completed Not Available Not Available Not Available sulfamethox azole 800 mg-trimetho prim 160 mg tablet TK 1 T PO Q 12 H FOR 10 DAYS 10/04 completed Not Available Not Available Not Available tramadol 50 mg tablet TAKE 1 TABLET BY MOUTH THREE TIMES A DAY, NEEDED 10/08 completed Not Available Not Available Not Available acetaminoph en 500 mg tablet TAKE 2 TABS (1000MG TOTAL) BY MOUTH EVERY 8 HOURS NEEDED FOR PAIN FOR UP TO 20 DOSES 07/19 completed Not Available Not Available Not Available butalbital- acetaminoph en-caffeine 50 mg-325 mg-40 mg tablet TAKE 1 TABLET BY MOUTH EVERY 6 HOURS NEEDED FOR 30 DAYS 10/08 completed Not Available Not Available Not Available oxycodone-a cetaminophe n 5 mg-325 mg tablet 08/23 completed Not Available Not Available Not Available Guaiatussin AC 10 mg-100 mg/5 mL oral liquid Take 10 mL every 4 hours by oral route as needed for 10 days. 03/18 completed Not Available Not Available Not Available pravastatin 10 mg tablet TAKE 1 TABLET BY MOUTH EVERY DAY 08/24 completed Not Available Not Available Not Available meclizine 25 mg tablet Take 1 tablet 3 times a day by oral route as needed for 10 days. 11/11 completed Not Available Not Available Not Available amlodipine 10 mg tablet TAKE 1 TABLET BY MOUTH EVERY DAY 10/08 completed Not Available Not Available Not Available cephalexin 500 mg capsule Take 1 capsule every 8 hours by oral route as directed for 10 days. 07/27 completed Not Available Not Available Not Available tacrolimus 0.1 % topical ointment APPLY 1-2 TIMES PER DAY TO PSORIASIS IN THE FOLDS OF THE SKIN WHEN FLARED 11/14 completed Not Available Not Available Not Available calcipotrie ne 0.005 % topical cream wait 2 weeks and apply to affected areas on the body BID Sunday - . 03/20 completed Not Available Not Available Not Available promethazin e 25 mg/mL injection solution Take 1 mL by injection route. 05/08 completed Not Available Not Available Not Available docusate sodium 100 mg capsule TAKE 1 CAPSULE BY MOUTH 2 TIMES A DAY NEEDED FOR CONSTIPAT ION active Not Available Not Available No t Available Replens vaginal gel Insert 1 g every day by vaginal route at bedtime for 30 days, for vaginal dryness. 10/08 completed Not Available Not Available Not Available hydrochloro thiazide 25 mg tablet TAKE 1 TABLET BY MOUTH EVERY DAY 2024 active Not Available Not Available Not Avai lable mometasone 0.1 % topical ointment apply to affected areas on the body BID x 2 weeks, then decrease to BID Sunday - Sunday. 03/20 completed Not Available Not Available Not Available mupirocin 2 % topical ointment APPLY A SMALL AMOUNT TO AFFECTED AREA 3 TIMES A DAY 10/08 completed Not Available Not Available Not Available zolpidem 5 mg tablet Take 1 tablet every day by oral route for 30 days. 11/11 completed Not Available Not Available Not Available levofloxaci n 750 mg tablet TAKE 1 TABLET BY MOUTH EVERY DAY FOR 10 DAYS 08/23 completed Not Available Not Available Not Available methylpredn isolone 4 mg tablets in a dose pack FPD 10/04 completed Not Available Not Available Not Available albuterol sulfate HFA 90 mcg/actuati on aerosol inhaler INHALE 2 PUFFS BY MOUTH FOUR TIMES DAILY NEEDED active Not Available Not Available No t Available ketorolac 60 mg/2 mL intramuscul ar solution Inject 2 mL by intramusc ular route. 02/24 completed Not Available Not Available Not Available clobetasol 0.05 % scalp solution PLEASE SEE ATTACHED FOR DETAILED DIRECTION S 11/14 completed Not Available Not Available Not Available lisinopril 40 mg tablet TAKE 1 TABLET BY MOUTH EVERY DAY 05/30 completed Not Available Not Available Not Available ondansetron 4 mg disintegrat ing tablet DISSOLVE 1 TABLET BY MOUTH FOR MILD TO MODERATE FORNAUSEA AND VOMITING OR 2 TABLETS FOR SEVERE FORNAUSEA AND VOMITING TWICE DAILY NEEDED 08/23 completed Not Available Not Available Not Available calcitriol 0.25 mcg capsule TAKE 1 CAPSULE (0.25 MCG TOTAL) BY MOUTH TWICE A DAY active Not Available Not Available No t Available calcipotrie ne 0.005 % topical ointment WAIT 2 WEEKS AND APPLY TO THE AFFECTED AREA ON THE BODY TWICE DAILY SUNDAY THROUGH 09/09 completed Not Available Not Available Not Available oxycodone 5 mg tablet TAKE 1 TABLET BY MOUTH EVERY 4 HOURS NEEDED FOR PAIN FOR UP TO 12 DOSES active Not Available Not Available No t Available neomycin-po lymyxin-hyd rocort 3.5 mg-10,000 unit/mL-1 % ear drops,susp INSTILL 4 DROPS INTO AFFECTED EAR(S) 3 TIMES A DAY 07/27 completed Not Available Not Available Not Available azithromyci n 500 mg tablet TAKE 1 TABLET BY MOUTH EVERY DAY FOR 3 DAYS 10/08 completed Not Available Not Available Not Available escitalopra m 20 mg tablet TAKE 1 TABLET BY MOUTH EVERY DAY active Not Available Not Available No t Available BD Ultra-Fine Short Pen Needle 31 gauge x 5/16 12/06 completed Not Available Not Available Not Available Januvia 100 mg tablet Take 1 tablet every day by oral route for 90 days. 03/20 completed Not Available Not Available Not Available Lantus Solostar U-100 Insulin 100 unit/mL (3 mL) subcutaneou s pen Inject 10 units every day by subcutane ous route for 30 days. 05/08 completed Not Available Not Available Not Available Purelax 17 gram/dose oral powder TAKE 17 G BY MOUTH NEEDED (UP TO 3 TIMES PER DAY NEEDED FOR CONSITPAT ION) 08/23 completed Not Available Not Available Not Available OneTouch Ultra Blue Test Strip USE TO TEST TWICE DAILY active Not Available Not Available No t Available OneTouch Delica Plus Lancet 33 gauge USE TO TEST TWICE DAILY active Not Available Not Available No t Available Fluarix Quad (PF) 60 mcg (15 mcg x 4)/0.5 mL IM syringe ADM 0.5ML IM UTD 10/04 completed Not Available Not Available Not Available Paxlovid 300 mg (150 mg x 2)-100 mg tablets in a dose pack TAKE 1 DOSE PACK BY MOUTH DIRECTED 11/14 completed Not Available Not Available Not Available Mounjaro 7.5 mg/0.5 mL subcutaneou s pen injector INJECT 0.5 ML SUBCUTANE OUSLY WEEKLY active Not Available Not Available No t Available Mounjaro 5 mg/0.5 mL subcutaneou s pen injector INJECT 5 MG SUBCUTANE OUSLY WEEKLY 06/20 completed Not Available Not Available Not Available Mounjaro 2.5 mg/0.5 mL subcutaneou s pen injector Inject 2.5 mg every week by subcutane ous route. 06/20 completed Not Available Not Available Not Available Vitals Date Recorded Body height Body mass index (BMI) Body weight Oxygen saturation Oxygen saturation in Arterial blood by Pulse oximetry Heart rate Systolic blood pressure Diastolic blood pressure Provider Name and Address Organization Details Last Updated DateTime 4 162.56 cm 47.3 kg/m2 311627 g 100 % 100 % 66 /min 130 mm[Hg] 87 mm[Hg] Karen Graves MA [facility] 4 11:34:20 Date Recorded Body height Body mass index (BMI) Body weight Oxygen saturation Oxygen saturation in Arterial blood by Pulse oximetry Heart rate Systolic blood pressure Diastolic blood pressure Provider Name and Address Organization Details Last Updated DateTime 4 162.56 cm 46.6 kg/m2 765858. 63 g 96 % 96 % 73 /min 137 mm[Hg] 83 mm[Hg] Karen Graves MA [facility] 4 14:18:30 Date Recorded Body height Body mass index (BMI) Body weight Oxygen saturation Oxygen saturation in Arterial blood by Pulse oximetry Heart rate Respiratory rate Systolic blood pressure Diastolic blood pressure Provider Name and Address Organization Details Last Updated DateTime 5 162.56 cm 44.9 kg/m2 161490. 48 g 97 % 97 % 78 /min 16 /min 126 mm[Hg] 82 mm[Hg] Alba Becker MA [facility] 5 11:28:45 Date Recorded Body height Oxygen saturation Oxygen saturation in Arterial blood by Pulse oximetry Heart rate Respiratory rate Body temperature Body mass index (BMI) Body weight Systolic blood pressure Diastolic blood pressure Provider Name and Address Organization Details Last Updated DateTime 5 162.56 cm 97 % 97 % 76 /min 16 /min 98.3 [degF] 43 kg/m2 709193. 97 g 122 mm[Hg] 84 mm[Hg] Alba Becker MA [facility] 5 16:01:28 Date Recorded Body height Oxygen saturation Oxygen saturation in Arterial blood by Pulse oximetry Heart rate Respiratory rate Systolic blood pressure Diastolic blood pressure Provider Name and Address Organization Details Last Updated DateTime 5 162.56 cm 98 % 98 % 76 /min 16 /min 126 mm[Hg] 80 mm[Hg] Alba Becker MA [facility] 5 15:22:09 Social History Question Answer Notes LastModified by Organizat ion Details LastModified Time Tobacco Smoking Status Never Smoker Serena Swenson MA [facility], [facility] 09/13/2015 10:13:00 What Is Your Level Of Alcohol Consumption? None Information not available 11/12/2019 Are You Blind Or Do You Have Difficulty Seeing? No Glasses Information not available 02/15/2022 What Is Your Level Of Caffeine Consumption? Occasional Information not available 07/27/2022 How Much Tobacco Do You Chew? None Information not available 11/12/2019 In The 14 Days Before Symptom Onset, Have You Had Close Contact With A Laboratory-confir med COVID-19 While That Case Was Ill? No Information not available 11/12/2019 In The 14 Days Before Symptom Onset, Have You Had Close Contact With A Person Who Is Under Investigation For COVID-19 While That Person Was Ill? No Information not available 11/12/2019 Have You Been To An Area Known To Be High Risk For COVID-19? No Information not available 11/12/2019 Are You Currently Employed? No Information not available 08/24/2021 Are You Deaf Or Do You Have Serious Difficulty Hearing? Yes [place] Both Ear Information not available 02/15/2022 What Type Of Diet Are You Following? REGULAR Information not available 10/04/2020 Which Illicit Or Recreational Drugs Have You Used? NO Information not available 11/12/2019 Education 2 Year College Information not available 11/12/2019 What Is Your Occupation? Disability Information not available 11/12/2019 Marital Status Informatio n not available 11/12/2019 What Was The Date Of Your Most Recent Tobacco Screening? 10/08/2024 Information not available 10/08/2024 What Is Your Relationship Status? Information not available 05/30/2021 Do You Use Your Seat Belt Or Car Seat Routinely? Yes Information not available 02/15/2022 Are You Sexually Active? No Information not available 02/15/2022 Do You Have Smoke And Carbon Monoxide Detectors In Your Home? Yes Information not available 05/30/2021 Are You Passively Exposed To Smoke? Yes Information no t available 08/24/2021 General Stress Level High Information not available 11/12/2019 Do You Feel Stressed (tense, Restless, Nervous, Or Anxious, Or Unable To Sleep At Night)? [id number] Information not available 07/27/2022 Do You Use Any Illicit Or Recreational Drugs? No Information not available 10/04/2020 Do You Use Sunscreen Routinely? Yes Information not available 02/15/2022 Has Tobacco Cessation Counseling Been Provided? No Information not available 05/30/2021 On What Date Was Tobacco Cessation Counseling Provided? 10/08/2024 Information not available 10/08/2024 Do You Or Have You Ever Used Any Other Forms Of Tobacco Or Nicotine? No Information not available 05/30/2021 Sex: Female Functional Status Question Answer Note LastModified by Organizat ion Details LastModified Time What is your exercise level? Occasional Information not available 07/27/2022 Mental Status None recorded. Family History Relationship Description Onset Age of this Age Resolved Age Notes LastModified by Organization Details LastModified Time Mother Asthma Not availabl e 02/25/2016 10:30:00 Mother Depressive disorder [email or web address] Not available 02/06 10:30:00 Mother Diabetes mellitus [email or web address] Not available 02/06 10:30:00 Mother Disorder of thyroid gland [email or web address] Not available 02/06 10:30:00 Mother Hypertensive disorder [email or web address] Not available 02/06 10:30:00 Mother Migraine Not availa ble 02/25/2016 10:30:00 Father Cerebrovascu lar accident [email or web address] Not available 0 02/25/2016 10:30:00 Father Depressive disorder [email or web address] Not available 02/06 10:30:00 Father Disorder of thyroid gland [email or web address] Not available 02/06 10:30:00 Father Hypertensive disorder [email or web address] Not available 02/06 10:30:00 Medical History Condition Response Coronary Artery Disease N Other N High Blood Pressure N Atrial Fibrillation N Thyroid Problems N Kidney or Bladder Problems N GI Problems N Depression Y COPD N Blood Clots N Skin Problems Y Eating Disorder N Anemia Y Heart Attack (SC) N Anxiety Disorder Y Diabetes Y Muscle, Joint, or Bone Problems N Seizures/Epilepsy N Acid Reflux (GERD) Y Cancer N Stroke Y Asthma N Allergies N ADHD N Substance Abuse N High Cholesterol N Hepatitis N Liver Disease N Schizophrenia N Headaches N Heart Failure N Osteoporosis N Gynecological History Statement/Question Response Date of Last Pap Smear Date of Last Mammogram 07/14/2021 Obstetrics History GPAL:G 0 P 0 0 0 0 Immunizations Vaccine Type Date Status Note Provider Nam e and Address Organization Details Recorded Time Influenza, split virus, quadrivalent, preservative 0 completed Not Available [facility] 08/27/2023 00:18:39 COVID-19, mRNA, LNP-S, PF, 30 mcg/0.3 mL dose 1 completed Not Available [facility] 08/27/2023 00:18:39 COVID-19, mRNA, LNP-S, PF, 30 mcg/0.3 mL dose 1 completed Not Available [facility] 08/27/2023 00:18:39 Influenza, MDCK, quadrivalent, PF 9 completed KT HONG NP Attn: [address] [place], [place], [address] [place] [address], [place] [facility] 04/07/2024 09:32:08 COVID-19, mRNA, LNP-S, PF, 30 mcg/0.3 mL dose 1 completed KT HONG NP Attn: [address] [place], [address] [place] [address], [place] [facility] 04/07/2024 09:32:08 Influenza, split virus, quadrivalent, PF 0 completed KT HONG NP Attn: [address] [place], [address] [place] [address], [place] [facility] 04/07/2024 09:32:08 Influenza, split virus, quadrivalent, PF 1 completed KT HONG NP Attn: [address] [place], [address] [place] [address], [place] [facility] 04/07/2024 09:32:08 zoster recombinant 4 completed Karen Graves [place], [place] [facility] 04/17/2024 11:51:46 Pneumococcal conjugate PCV20, polysaccharide [id number] conjugate, adjuvant, PF 4 completed Karen Graves [place], [place] [facility] 04/17/2024 11:51:46 zoster recombinant 4 completed Karen Graves [place], [place] [facility] 04/17/2024 11:51:46 COVID-19, mRNA, LNP-S, PF, angela-sucrose, 30 mcg/0.3 mL 4 completed Karen Graves [place], [place] [facility] 04/17/2024 11:51:46 Influenza, split virus, trivalent, PF 4 completed Karen Graves MA [facility], [place] - [facility] 04/17/2024 11:51:46 Past Encounters Encounter ID Performer Location Encounter Start Date Encounter Closed Date Diagnosis/Indication Diagnosis SNOMED-CT Code Diagnosis ICD10 Code Diagnosis Note [id number] MARÍA Tran [address] [place] [address] 09/13/2015 10:18:29 09/13/2015 11:06:11 Knee pain 70472418 M25.561 Morbid obesity 714101038 E66.01 Chronic depression 33880 0009 F34.1 Cerebrovas cular accident 754632246 I63.9 Psoriasis 0293160 L40.9 Candidiasis of skin 4988 3006 B37.2 [id number] MARÍA Tran [facility] [address] [place] [address] 09/23/2015 10:09:00 09/23/2015 11:32:58 Candidiasis of skin 80884757 B37.2 Chronic depression 39285 0009 F34.1 Morbid obesity 509112313 E66.01 Psoriasis 9776574 L40.9 Hyperglycemia 15255828 R 73.9 Right uppe r quadrant pain 698147286 R10.11 [id number] Ronni Laboy PA-C [facility] [address] [place] [address] 09/30/2015 10:14:27 09/30/2015 10:43:22 Candidiasis of skin 95628367 B37.2 Knee pain 81828021 M25.5 61 Right uppe r quadrant pain 990635558 R10.11 Chronic depression 84746 0009 F34.1 Morbid obesity 284947166 E66.01 Psoriasis 0514810 L40.9 Cerebrovas cular accident 511371787 I63.9 Hyperglycemia 69393449 R 73.9 Diabetes mellitus 588163 09 E11.9 [id number] MARÍA Tran [facility] [address] [place] [address] 11/15/2015 10:09:45 11/15/2015 11:06:28 Diabetes mellitus 25877746 E11.9 Morbid obesity 764698309 E66.01 Cellulitis 583233998 L03 .90 [id number] MARÍA Tran [address] [place] [address] 11/23/2015 10:29:21 11/23/2015 11:17:27 Cellulitis 347505662 L03.90 Diabetes mellitus 897185 09 E11.9 Morbid obesity 844981250 E66.01 Chronic depression 88045 8 F34.1 [id number] MARÍA Tran [address] [place] [address] 12/30/2015 14:25:18 12/30/2015 15:30:24 Migraine 26291425 G43.909 Diabetes mellitus 202810 09 E11.9 [facility] 26514369 R3 2 [id number] MARÍA Tran [facility] [address] [place] [address] 02/25/2016 10:19:31 02/25/2016 10:53:58 Cellulitis 681839801 L03.90 Chronic depression 99301 8 F34.1 [id number] MARÍA Tran [address] [place] [address] 05/08/2016 10:20:55 05/08/2016 12:18:41 Essential hypertension 85661859 I10 [id number] MARÍA Tran [address] [place] [address] 12/06/2016 15:51:38 12/06/2016 17:21:24 Incontinence 56308938 N39.42 Chronic depression 53249 8 F34.1 Cerebrovas cular accident 729675821 I63.00 [id number] MARÍA Tran [address] [place] [address] 02/28/2017 10:58:35 02/28/2017 12:27:18 [id number] MARÍA Tran [address] [place] [address] 03/05/2017 10:44:11 03/05/2017 13:40:27 Cellulitis 321705907 L03.90 Morbid obesity 131542174 E66.01 Diabetes mellitus 184503 09 E11.9 [id number] MARÍA Tranker [facility] [address] [place] [address] 03/07/2017 15:44:57 03/07/2017 17:51:52 Diabetes mellitus 15439098 E11.9 Laceration of lower leg 546429505 S81.811D Primary insomnia 9672139 F51.01 [id number] Ronni Laboy PA-C [facility] [address] [place] [address] 08/29/2017 16:30:51 08/29/2017 18:30:44 Migraine with aura 5488487 G43.109 Essential hypertension 94488303 I10 Primary insomnia 9732696 F51.01 [id number] Ronni Laboy PA-C [facility] [address] [place] [address] 09/06/2017 15:44:00 09/06/2017 16:43:58 Screening for malignant neoplasm of breast 151861331 Z12.31 New daily persistent headache 6598152030 75416 G44.52 Plaque psoriasis 3558752 09 L40.0 Type 2 michelle betes mellitus 92733098 E11.9 [id number] Pepper Allen MA [facility] [address] [place] [address] 03/18/2018 10:22:56 03/18/2018 11:15:54 Morbid obesity 173866292 E66.01 Diabetes mellitus 965986 09 E11.9 Psoriasis 5506389 L40.0 History of polyp of colon 535895135 Z86.153 [id number] Ronni Laboy PA-C [facility] [address] [place] [address] 03/25/2018 09:51:59 03/25/2018 11:09:56 Chronic depression 018850050 F34.1 Morbid obesity 234536599 E66.01 Diabetes mellitus 142585 09 E11.9 Cerebrovas cular accident 925928363 I63.00 Dyspnea on exertion 6084 5006 R06.09 Essential hypertension 53982059 I10 New daily persistent headache 1522921703 16743 G44.52 [id number] MARÍA Tran [facility] [address] [place] [address] 04/18/2018 10:52:13 04/18/2018 12:06:39 Pain in right knee 2064642793 04374 M25.490 [id number] Tonya Sepulveda FP ([facility]) [address] [place] [address] 09/04/2018 11:01:30 09/04/2018 13:08:11 Psoriasis 5626123 L40.9 Neurofibroma 563084958 D 36.10 [id number] MARÍA Tran [facility] [address] [place] [address] 03/20/2019 16:03:16 03/20/2019 17:16:29 Cerebrovascular accident 247858934 I63.00 Morbid obesity 084618969 E66.01 Incontinence 82798300 N3 9.42 Diabetes mellitus 308266 09 E11.9 Psoriasis 9169407 L40.0 New daily persistent headache 3027410500 66036 G44.52 Essential hypertension 99617387 I10 Migraine with aura 11713 06 G43.109 Primary insomnia 1990404 F51.01 [id number] MARÍA Tran [facility] [address] [place] [address] 11/12/2019 10:42:16 11/13/2019 09:54:07 Essential hypertension 75135599 I10 New daily persistent headache 2792870673 99009 G44.52 Diabetes mellitus 536973 09 E11.9 Migraine with aura 12120 06 G43.109 History of asthma 838641 007 Z87.09 Chronic depression 14813 0009 F34.1 [id number] SANTA Vásquez [facility] [address] [place] [address] 11/19/2019 10:21:17 11/19/2019 11:29:43 Essential hypertension 92315406 I10 [id number] MARÍA Tran [address] [place] [address] 03/02/2020 09:29:52 03/03/2020 16:16:19 Abscess of left axilla 2776656968 9303504 L02.040 [id number] MARÍA Tran [address] [place] [address] 10/04/2020 10:12:46 10/05/2020 13:25:03 Furuncle 223901939 L02.828 Benign par oxysmal positional vertigo 281543298 H81.11 [id number] Ronni Laboy PA-C [facility] [address] [place] [address] 05/30/2021 10:40:31 05/30/2021 12:43:11 Essential hypertension 20149215 I10 Type 2 michelle betes mellitus 18868709 E11.9 Migraine without aura 56 966886 G43.009 Chronic depression 22629 0009 F34.1 Screening for malignant neoplasm of breast 313902845 Z12.31 [id number] Ronni Laboy PA-C [facility] [address] [place] [address] 08/24/2021 11:32:37 08/24/2021 12:53:09 Pain of right knee joint 6401909230 79417 M25.561 Mixed anxi ety and depressive disorder 044918548 F41.8 Body mass index 40+ - severely obese 998272687 Z68.43 Osteoarthr itis of knee 620535114 M17.9 [id number] Ronni Laboy PA-C [facility] [address] [place] [address] 09/21/2021 10:56:34 09/21/2021 11:38:27 Morbid obesity 357336643 E66.01 [id number] Ronni Laboy PA-C [facility] [address] [place] [address] 02/15/2022 10:21:30 02/15/2022 11:23:17 Adult health examination 036984590 Z00.00 Essential hypertension 31563886 I10 Migraine without aura 56 857924 G43.009 Moderate p ersistent asthma 958860963 J45.40 Osteoarthritis 404801223 M19.90 Mixed anxi ety and depressive disorder 931288910 F41.8 Gastroesop hageal reflux disease without esophagitis 619017209 K21.9 [id number] Tereza Wilhelm MA [facility] [address] [place] [address] 04/10/2022 14:51:49 04/10/2022 15:50:24 Morbid obesity 757286296 E66.01 Overweight 686390197 E66 .3 Essential hypertension 43534649 I10 Adult heal th examination 542698011 Z00.00 [id number] Ronni Laboy PA-C [facility] [address] [place] [address] 04/25/2022 15:05:15 04/25/2022 15:51:20 Edema of lower extremity 518438640 R60.0 [id number] Ronni Laboy PA-C [facility] [address] [place] [address] 05/10/2022 10:16:07 05/10/2022 11:14:23 Morbid obesity 593628741 E66.01 Cellulitis of lower limb 787767747 L03.119 Persistent cough 8601932 02 R05.3 [id number] [facility] [address] [place] [address] 07/27/2022 14:17:34 08/03/2022 16:31:08 Skin lesion 06662231 L98.9 - Noted on right labia externa; no signs concerning for infection- Recommende d using warm compress for 20 minutes a day, 3-4 times per day- Advised patient not to shave labia bare; can use clippers for close trim instead to prevent folliculit is in the future- Patient to return to clinic as needed or if lesion gets warm, red, and much bigger in size [id number] Ronni Laboy PA-C [facility] [address] [place] [address] 08/04/2022 11:40:18 08/09/2022 12:26:53 Cellulitis 673309519 L03.115 Overweight 555878662 E66 .3 [id number] Ronni Laboy PA-C [facility] [address] [place] [address] 11/14/2022 13:52:07 11/20/2022 13:37:49 Angina co-occurrent and due to coronary arteriosclerosis 7227551979 4777008 I25.112 History of cerebrovascular accident 208968775 Z86.73 Morbid obesity 835715293 E66.01 Type 2 michelle betes mellitus 31885655 E11.9 Overweight 864389006 E66 .3 [id number] Ronni Laboy PA-C [facility] [address] [place] [address] 12/27/2022 11:07:10 12/28/2022 09:54:11 Cellulitis 063168326 L03.115 Overweight 694919156 E66 .3 [id number] Ronni Laboy PA-C [facility] [address] [place] [address] 02/19/2023 11:15:47 02/20/2023 11:36:47 Strain of triceps brachii muscle 645354714 S46.312A Overweight 443570591 E66 .3 Plaque psoriasis 5652290 09 L40.0 Chronic neck pain 487676 4229 107 M54.2 Osteoarthritis 244154308 M19.90 [id number] Ronni Laboy PA-C [facility] [address] [place] [address] 03/15/2023 10:44:49 03/20/2023 15:47:13 Pain of left shoulder joint 8660722357 9392545 M25.313 [id number] Ronni Laboy PA-C [facility] [address] [place] [address] 04/16/2023 14:01:38 04/18/2023 15:49:45 Cellulitis of right lower limb 5419420449 8023681 L03.115 Adhesive c apsulitis of left shoulder 3044590944 50116 M75.02 Overweight 181550786 E66 .3 [id number] Ronni Laboy PA-C [facility] [address] [place] [address] 08/23/2023 11:07:00 08/28/2023 09:55:08 Long-term drug therapy 010347815 Z79.899 Adhesive c apsulitis of left shoulder 4872805031 73230 M75.02 Morbid obesity 906195078 E66.01 Mixed anxi ety and depressive disorder 630006695 F41.8 [id number] MARÍA Tran [facility] [address] [place] [address] 10/08/2023 10:58:46 10/25/2023 14:49:01 Fever 528665970 R50.9 Morbid obesity 066228014 E66.01 COVID-19 094204089 U07.1 [id number] Ronni Laboy PA-C [address] [address] 11/15/2023 14:10:40 11/16/2023 16:14:49 Morbid obesity 458081410 E66.01 Migraine without aura 56 960939 G43.009 Pain of le ft shoulder joint 4114265690 6084002 M25.042 [id number] Ronni Laboy PA-C [address] [address] 12/18/2023 11:12:28 12/19/2023 08:50:16 Pain of left shoulder joint 5407676872 5088398 M25.512 Overweight 560893752 E66 .3 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 Pt has JACQUI in 1996; no longer needs pap smears.2. STI screening {{complete d declined *}}.3. Pt is post menopausal .4. Discussed breast self awareness5 . Mammogram ordered per ACOG guidelines 6. Colonoscop y done in . Educated on STI reduction and prevention . Encouraged condom use.8. Discussed when to return to clinic for /[employer]KER complaints . Screening mammography 24 301982 Z12.31 Last Mammogram: 2Or delia placed for [place] Menopause 277821881 Z78. 0 pt is post menopausal Discussed vaginal changes, moisturize rs and lubricatio nDiscussed returning to clinic with any vaginal bleedingDi scussed Calcium and Vitamin D supplement ation Morbid obesity 712815846 E66.01 Furuncle of vulva 237333 006 N76.4 2 small boils that have popped noted to upper vulvaPt is allergic to Bactrim and tetracycli nesWill try mupirocin 2% topical ointment Psoriasis 7856551 L40.9 psoriasis notedPt is no longer seeing anyone for management [id number] Ronni Laboy PA-C [facility] [address] [place] [address] 04/17/2024 11:13:27 04/24/2024 11:00:58 Mixed anxiety and depressive disorder 550172456 F41.8 Pain in left foot 959591 3532 09238 M79.672 Morbid obesity 265764092 E66.01 [id number] Ronni Laboy PA-C [facility] [address] [place] [address] 06/20/2024 11:19:34 06/23/2024 09:29:35 Mediastinal lymphadenopathy 29334995 R59.0 Thyroid nodule 460948508 E04.1 Morbid obesity 479377808 E66.01 [id number] Ronni Laboy PA-C [facility] [address] [place] [address] 07/07/2024 14:09:49 07/08/2024 12:59:36 Postconcussion syndrome 87595201 F07.81 Morbid obesity 979432721 E66.01 [id number] [facility] [address] [place] [address] 08/05/2024 11:12:16 08/11/2024 11:39:20 Dysuria 06904464 R30.0 Thyroid nodule 207948020 E04.1 Mediastina l lymphadenopathy 84019388 R59.0 Acute urin pascual tract infection 804179926 N30.00 Morbid obesity 131193308 E66.01 [id number] Ronni Laboy PA-C [facility] [address] [place] [address] 08/29/2024 15:50:45 09/01/2024 12:18:52 History of malignant neoplasm of thyroid 013484508 Z85.850 Cervical lymphadenopathy 592126114 R59.0 Multiple n odules of lung 522132015 R91.8 Acute bron chitis with bronchospasm 88883630 J20.8 Overweight 314004873 E66 .3 [id number] Ronni Laboy PA-C [facility] [address] [place] [address] 10/08/2024 15:10:27 10/10/2024 10:12:33 Mixed anxiety and depressive disorder 781617816 F41.8 cont current meds Essential hypertension 87523758 I10 Malignant tumor of thyroid gland 294389556 C73 Body mass index 40+ - severely obese 195828495 Z68.43 Overweight 063815501 E66 .3 Muscle weakness 35558423 M62.81 Health Concerns Section Related Observation LastModified by Organization Detai ls LastModified Time None Recorded Concern Status LastModified by Organization Details LastModified Time None Recorded Advance Directives Directive None Recorded Payers Encounter Date Sequence Insurance Name Policy Number Policy Melo Covered Member ID Melo Member ID Guarantor Name 06/20/2024 2 [place] MEDICARE REPLACEMENT PRIMARY) Janeen Woodward [id number] Janeen Woodward 06/20/2024 1 [facility] (MEDICARE REPLACEMENT/AD VANTAGE - HMO) [id number] Janeen Woodward [id number] Janeen Woodward 07/07/2024 2 [place]IC[place] REPLACEMENT PRIMARY) Janeen Woodward [id number] Janeen Woodward 07/07/2024 1 [facility] (MEDICARE REPLACEMENT/AD VANTAGE - HMO) [id number] Janeen Woodward [id number] Janeen Woodward 08/05/2024 2 [place]ICARE REPLACEMENT PRIMARY) Janeen Woodward [id number] Janeen Woodward 08/05/2024 1 [facility] (MEDICARE REPLACEMENT/AD VANTAGE - HMO) [id number] Janeen Woodward [id number] Janeen Woodward 08/29/2024 2 [place] OR MEDICARE REPLACEMENT PRIMARY) Janeen Woodward [id number] Janeen Woodward 08/29/2024 1 [facility] (MEDICARE REPLACEMENT/AD VANTAGE - HMO) [id number] Janeen Woodward [id number] Janeen Woodward 10/08/2024 2 [place] WHEN [place] OR MEDICARE REPLACEMENT PRIMARY) Janeen Trace [id number] Janeen Trace 10/08/2024 1 [facility] (MEDICARE REPLACEMENT/AD VANTAGE - HMO) [id number] Janeen Woodward [id number] Janeen Trace Notes Date Note Type Note Provider Name and Address Organization Details Recorded Time 06/20/2024 text/html ER follow up...fell..trippe d on a rolled up rug...now has to see a specialist because of incidental finding from fall exam...never smoked...speckled nodes partly calcified Ronni Laboy PA-C Attn: [address] [place], [address], [facility] [place] [place] 06/20/2024 12:13:10 07/07/2024 text/html fell and hit hea d ...ER ...CT scan was negative and xray knee negative,,,was told concussion..rt knee still has a knot on it... Ronni Laboy PA-C Attn: [address] [place], [address], [facility] [place] [place] 07/07/2024 14:33:07 08/05/2024 text/html complaint of dysuria...went to [facility] and has been diagnosed with thyroid cancer...debating on facility... Ronni Laboy PA-C Attn: [address] [place], [address], [facility] [place] [place] 08/05/2024 12:11:07 08/29/2024 text/html just diagnosed with cancer..thyroid.. mets to lymph nodes and lungs..flu like symptoms Ronni Laboy PA-C Attn: [address] [place], [address], [facility] 08/29/2024 16:22:05 10/08/2024 text/html thyroid cancer..total removal and radiation meds start soon for 2 residual spots..bp meds removed.. Ronni Laboy PA-C Attn: [address] [place], [address], [facility] 10/08/2024 15:38:24 OBGyn Episode No OBEpisode recorded.
--- OUTSIDE RECORDS SUMMARY | 2024-10-14 17:03 | XMS_ITS | Encounter Summary ---
Author Organization [facility] Address [address] [place] [address] Phone Care Team Providers Care Certified Phlebotomy Technician Name Role Phone Romie Laboy Primary Care Provider [phone] Encounter Details Date Type Department Care Team (Late st Contact Info) Description 10/14/2024 Orders Only [facility] Surgery [address] [place] [address] Babs Lockhart RN Papillary thyroid carcinoma (HCC) (Primary Dx) Social History Tobacco Use Types Packs/Day Years [...] on file 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 Gender Identity Not on file Sexual Orientation Not on file documented as of this encounter Plan of Treatment Scheduled Orders Name Type Priority Associated Diagnoses Orde r Schedule Basic metabolic panel Lab Routine Papillary thyroid carcinoma (HCC) Expected: 10/14/2024, Expires: 10/14/2025 documented as of this encounter Visit Diagnoses Diagnosis Papillary thyroid carcinoma (HCC)- Primary documented in this encounter Care Teams Certified Phlebotomy Technician Relationship Specialty Start Date End Date Romie Laboy PA [address] [place] [address] PCP - General 12/06/16 documented as of this encounter
--- OUTSIDE RECORDS SUMMARY | 2024-10-14 17:04 | XMS_ITS | Clinical Summary ---
Author Organization [facility] Address [address] [place] [address] Care Team Providers Care Manager Shift Name Role Phone Romie Laboy Primary Care Provider [phone] Allergies Active Allergy Reactions Criticality Noted Date [...] 1 tablet (175 mcg total) by mouth c winforms developer before breakfast 30 tablet 1 10/03/19 25 [...] times a day 60 capsule 11 10/03/19 026 Active caffeine 200 mg tablet Take 1 tablet (200 mg total) by mouth daily 025 Discontin ued(Error ) acetaminophen (TYLENOL) 500 mg tablet Take 2 tablets (1,000 mg total) by mouth every 8 (eight) hours as needed for pain for up to 20 doses 40 tablet 04/26/20 025 Discontin ued(Error ) oxyCODONE (ROXICODONE) 5 mg immediate release tabletIndicati ons:Pain Take 1 tablet (5 mg total) by mouth every 8 (eight) hours as needed for pain (Severe, breakthrough pain) 9 tablet 04/26/20 025 Discontin ued(Error ) tacrolimus (PROTOPIC) 0.1 % ointment APPLY 1-2 TIMES PER DAY TO PSORIASIS IN THE FOLDS OF THE SKIN WHEN FLARED 02/28/20 025 Discontin ued(Error ) mupirocin (BACTROBAN) 2 % ointment APPLY A SMALL AMOUNT TO AFFECTED AREA 3 TIMES A DAY 06/17/20 24 025 Discontin ued(Error ) Mounjaro 7.5 mg/0.5 mL pen injector INJECT 0.5 ML SUBCUTANEOUSLY WEEKLY 025 Discontin ued(Error ) ciprofloxacin (CIPRO) 500 mg tablet Take 1 tablet (500 mg total) by mouth 025 Discontin ued(Thera py completed ) levothyroxine (SYNTHROID) [...] wit h other specified complication, unspecified whether group home insulin use 09/16/2024 Papillary thyroid carcinoma 09/08/2024 Assessment & Plan (09/08/2024 3:25 PM CLINIC DIRECTOR): PET scan scheduled for 09/10/24. Refer to [...] pain 02/21/2023 Coronary artery disease invo lving galena coronary artery of galena heart 01/26/2023 Calculus of gallbladder with out cholecystitis without obstruction 01/04/2022 Overview (01/04/2022): Added automatically from request for surgery [id number] Incisional hernia, without obstruction or gangre ne 01/04/2022 Overview (01/04/2022): Added automatically from request for surgery [id number] Encounters Date Type Department Care Team Description 10/14/2024 Telephone [facility] Surgery [address] [place] [address] 5 [place] [address] Babs Lockhart RN 10/14/2024 Orders Only [facility] Surgery [address] [place] [address] Floor 5 [place] [address] Babs Lockhart, EMELY Papillary thyroid carcinoma (HCC) (Primary Dx) 10/14/2024 Telephone [facility] Surgery [address] [place] [address] Floor 5 [place] [address] Babs Lockhart RN 10/14/2024 Telephone [facility] Surgery [address] [place] [address] Floor 8 [place] [address] Josie Clarke MD Medical Question/Miscellaneou s 10/10/2024 1:45 PM CDT Clinical Support [facility] Surgery [address] [place] [address] Floor 5 [place] [address] Josie Clarke MD Papillary thyroid carcinoma (HCC) (Primary Dx) 10/10/2024 Documentation [facility] Surgery [facility] 5 [place] [address] Babs Lockhart RN 10/09/2024 Telephone [facility] Surgery [address] [place] [address] Floor 8 [place] [address] Josie Clarke MD 09/30/2024 1:21 PM CDT Anesthesia Event [facility] Operating [facility] [address] [place] [address] Joss Guillaume MD Montgomery, Andrea J., NP 09/30/2024 12:00 PM CDT - 09/30/2024 4:50 PM CDT Surgery [facility] Operating Room [facility]) [address] [place] [address] Josie Clarke MD THYROIDECTOMY - TOTAL 09/30/2024 9:22 AM CDT - 09/30/2024 11:59 PM CDT Hospital Encounter [facility] Radiology [facility]) [address] [place] [address] Thyroid cancer (HCC) Discharge Disposition: Discharge to home or self care 09/30/2024 8:46 AM CDT - 10/02/2024 2:09 PM CDT Hospital Encounter [facility] [address] [place] [address] Josie Clarke MD Thyroid cancer (HCC) Discharge Disposition: Discharge to home or self care 09/29/2024 Telephone [facility] Surgery [address] [place] [address] 5 [place] [address] Babs Lockhart RN 09/29/2024 Orders Only [facility] Surgery [address] [place] [address] 5 [place] [address] Babs Lockhart RN Thyroid cancer (HCC) (Primary Dx) 09/25/2024 7:30 AM CDT Pre-Admission Testing [facility] for Preoperative Assessment and Planning [facility]) [address] [place] [address] Preoperative testing (Primary Dx) 09/22/2024 Telephone [facility] Surgery [address] [place] [phone] Josie Clarke MD Medical Question/Miscellaneou s 09/18/2024 Orders Only [facility] Surgery [address] [place] [phone] Babs Lockhart RN Lung nodules (Primary Dx); Thyroid nodule; Mediastinal lymphadenopathy 09/17/2024 Results Follow-Up [facility] Surgery [address] [place] [phone] Josie Clarke MD 09/16/2024 1:30 PM CDT Office Visit [facility] Surgery [address] [place] [phone] Gloria Wylie MD Mediastinal lymphadenopathy (Primary Dx); Papillary thyroid carcinoma (HCC); Thyroid cancer (HCC); Morbid obesity (HCC); Type 2 diabetes mellitus with other specified complication, unspecified whether group home insulin use (HCC) 09/16/2024 Orders Only [facility] Surgery [address] [place] [phone] Babs Lockhart RN Thyroid nodule (Primary Dx) 09/16/2024 Telephone [facility] Surgery [address] [place] [phone] Babs Lockhart RN 09/15/2024 Telephone [facility] Surgery [address] [place] [phone] Josie Clarke MD Medical Question/Miscellaneou s 09/11/2024 Telephone [facility] Surgery [address] [place] [phone] Josie Clarke MD Medical Question/Miscellaneou s 09/10/2024 9:43 AM CLINIC DIRECTOR - 09/10/2024 11:59 PM CLINIC DIRECTOR Hospital Encounter [facility] [address] [place] [address] Discharge Disposition: Discharge to home or self care 09/10/2024 9:42 AM CLINIC DIRECTOR - 09/10/2024 11:59 PM CLINIC DIRECTOR Hospital Encounter [facility] Radiology [facility]) [address] [place] [address] Thyroid cancer (HCC) Discharge Disposition: Discharge to home or self care 09/10/2024 Orders Only [facility] Surgery [address] [facility] Floor 5 [place] [address] Josie Clarke MD Thyroid cancer (HCC) (Primary Dx) 09/09/2024 8:40 AM CLINIC DIRECTOR Lab [facility] 1 [facility] 1st [place] [address] Thyroid cancer (HCC) 09/09/2024 8:36 AM CLINIC DIRECTOR - 09/09/2024 11:59 PM CLINIC DIRECTOR Hospital Encounter [facility] Radiology [address] [place] [address] Thyroid cancer (HCC) Discharge Disposition: Discharge to home or self care 09/08/2024 11:00 AM CLINIC DIRECTOR - 09/08/2024 11:59 PM CLINIC DIRECTOR Hospital Encounter [facility] Radiology [address] [place] [address] Thyroid cancer (HCC) Discharge Disposition: Discharge to home or self care 09/08/2024 10:00 AM CLINIC DIRECTOR Office Visit [facility] Endocrinology Metabolism and Lipid [address] [facility] Floor 1, [address] [place] [address] Francisco Mccormick MD Papillary thyroid carcinoma (HCC) (Primary Dx); Thyroid cancer (HCC); Mediastinal lymphadenopathy; Lung nodules 09/08/2024 Orders Only [facility] Radiology [address] [place] [address] Arlene Amaro RN Thyroid cancer (HCC) (Primary Dx) 09/08/2024 Documentation [facility] Advanced Medicine Radiation Oncology Formerly [facility], [facility] Advanced [place] [address] Christelle Sanches RN 09/04/2024 Telephone [facility] Radiology [address] [place] [address] Arlene Amaro, EMELY 09/04/2024 Telephone [facility] Radiology [address] [place] [address] Arlene Amaro, EMELY 09/03/2024 Orders Only [facility] Surgery [address] [facility] Floor 5 [place] [phone] Babs Lockhart RN Thyroid cancer (HCC) (Primary Dx) 09/01/2024 Telephone [facility] Surgery [address] [facility] Floor 5 [place] [address] Babs Lockhart RN 08/29/2024 Orders Only [facility] Surgery [address] [place] [address] 5 [place] [phone] Josie Clarke MD Thyroid cancer (HCC) (Primary Dx) 08/29/2024 Orders Only [facility] Surgery [facility]0 [facility] Floor 5 [place] [phone] Babs Lockhart RN Thyroid cancer (HCC) (Primary Dx) 08/29/2024 Orders Only [facility] Surgery [facility] Floor 5 [place] [phone] Babs Lockhart RN Thyroid cancer (HCC) (Primary Dx) 08/29/2024 Orders Only [facility] Surgery [facility] Floor 5 [place] [phone] Josie Clarke MD Thyroid cancer (HCC) (Primary Dx) 08/29/2024 Orders Only [facility] Surgery [facility] Floor 5 [place] [phone] Josie Clarke MD 08/29/2024 Telephone [facility] Endocrinology Metabolism and Lipid [address] [facility] 5th [place] [address] [place] [phone] Priscila De La O RN 08/28/2024 Telephone [facility] Surgery [facility] Floor 8 [place] [phone] Josie Clarke MD Medical Question/Miscellaneou s 08/28/2024 Telephone [facility] Surgery [address] [facility] 5 [place] [address] Babs Lockhart RN 08/27/2024 Telephone [facility] Surgery [address] [place] [address] 8 [place] [phone] Josie Clarke MD Medical Question/Miscellaneou s 08/26/2024 10:35 AM CLINIC DIRECTOR - 08/26/2024 11:59 PM CLINIC DIRECTOR Hospital Encounter [facility] ([facility]) [address] [place] [address] Josie Clarke MD Thyroid nodule Discharge Disposition: Discharge to home or self care 08/26/2024 10:34 AM CLINIC DIRECTOR - 08/26/2024 11:59 PM CLINIC DIRECTOR Hospital Encounter [facility] ([facility]) [address] [place] [address] Thyroid nodule Discharge Disposition: Discharge to home or self care 08/25/2024 Telephone [facility] Surgery [address] [place] [address] 5 [place] [address] Babs Lockhart RN 08/25/2024 Telephone [facility] Radiology [address] [place] [address] Swapna Segovia RN 08/25/2024 Telephone [facility] Surgery [address] [place] [phone] Josie Clarke Scheduling Testing/Treatment 08/25/2024 Telephone [facility] Radiology [address] [place] [address] Swapna Segovia RN 08/25/2024 Telephone [facility] Radiology [address] [place] [address] Swapna Segovia RN 08/25/2024 Orders Only [facility] Surgery [address] [place] [address] 5 [place] [address] Babs Lockhart RN Thyroid nodule 08/22/2024 4:23 PM CLINIC DIRECTOR - 08/22/2024 11:59 PM CLINIC DIRECTOR Hospital Encounter [facility] ([facility]) [address] [place] [address] Diagnosis unknown Discharge Disposition: Discharge to home or self care 08/22/2024 3:59 PM CLINIC DIRECTOR - 08/22/2024 11:59 PM CLINIC DIRECTOR Hospital Encounter [facility]) [address] [place] [address] Diagnosis unknown Discharge Disposition: Discharge to home or self care 08/22/2024 2:00 PM CLINIC DIRECTOR Lab [facility] - Lab Collection [address] [place] [address] 5 [place] [address] Thyroid nodule; Hx of thyroid nodule 08/22/2024 1:30 PM CLINIC DIRECTOR Therapy [facility] Otolaryngology [address] [place] [address] 5 [place] [phone] Karen Rosales SLP Dysphonia (Primary Dx); Thyroid nodule; Muscle tension dysphonia 08/22/2024 1:00 PM CLINIC DIRECTOR Office Visit [facility] Surgery [address] [place] [phone] Josie Clarke MD Thyroid nodule; Hx of thyroid nodule 08/22/2024 8:22 AM CLINIC DIRECTOR - 08/22/2024 11:59 PM CLINIC DIRECTOR Hospital Encounter [facility] Radiology [address] [place] [address] Thyroid nodule Discharge Disposition: Discharge to home or self care 08/22/2024 Telephone [facility] Radiology [address] [place] [address] So Ashley RN 08/22/2024 Orders Only [facility] Surgery [address] [place] [phone] Babs Lockhart, EMELY Thyroid nodule (Primary Dx) 08/22/2024 Orders Only [facility] Surgery [address] [place] [address] 5 [place] [address] Babs Lockhart, EMELY Thyroid nodule (Primary Dx) 08/18/2024 Telephone [facility] Surgery [address] [place] [phone] Josie Clarke MD Medical Question/Miscellaneou s 08/18/2024 Telephone [facility] Surgery [address] [facility] Floor 5 [place] [address] Denny Shi, Lucina 08/11/2024 Orders Only [facility] Surgery [address] [facility] Floor 5 [place] [address] Josie Clarke MD Thyroid nodule (Primary Dx) 08/07/2024 Telephone [place] [address] [place] [address] Referral, Self Appointment Request 08/06/[address] [address] Bree Hong RN Appointment/Schedules 07/28/2024 1:00 PM CLINIC DIRECTOR Office Visit [facility] Pulmonary at [address] [place] [address] Henry Lowe MD Thyroid nodule (Primary Dx); Mediastinal lymphadenopathy from Last 3 Months Immunizations Immunization Administration Dates Next Due Influenza, Quadrivalent, Michelle l Culture-based MDCK, Preservative Free, Antibiotic Free, Intramuscular 06/03/2019 Influenza, Quadrivalent, Split, Intramuscular Influenza, Quadrivalent, Spl it, Preservative Free, Intramuscular 05/07/2021,05/03/2020 Influenza, Trivalent, Preservative Free, Intramu scular 04/05/2024 ZOSTER Recombinant 04/05/2024,12/05/2023 Surgical History Surgery Date Site/Laterality Comments HYSTERECTOMY 07/09/1996 - 07/08/1997 OOPHORECTOMY 07/09/1996 - 07/08/1997 Bilateral BREAST BIOPSY 2004? Right benign needle bx, no scar CHOLECYSTECTOMY 01/06/2022 GASTRIC BYPASS with 54lb apon removal Medical History Medical History Date Comments Cerebrovascular accident (CVA) (HCC) Stroke Gout Gout Hypertension Hypertension Asthma GERD (gastroesophageal reflux disease) Motion sickness Depression Anxiety PONV (postoperative nausea and vomiting) Cancer (HCC) Thyroid Family History Medical History Relation Name Comments Breast cancer Neg Hx Ovarian cancer Neg Hx Thyroid cancer Neg Hx Social History Tobacco Use Types Packs/Day Years [...] on file Legal Sex Female 12:10 AM CLINIC DIRECTOR Gender Identity Not on file Sexual Orientation Not on file Obstetrics History Para Term AB IAB SAB Ectopic Multiple Livin g Live Births 3 1 1 Date Outcome GA Total Labor Labor/2nd/3rd Weight Sex Type Anes PTL Charisse A1 A5 Name Clin Term Last Filed Vital Signs Vital Sign Reading [...] 10/10/2024 1:35 PM CDT Plan of Treatment Health Maintenance Due Date Last Done Comments Albumin Creatinine Ratio, Urine 1966 Colon Cancer Screening-Colonoscopy 1966 Depression Screening 1966 Hepatitis C Screening 1966 Dilated Eye Exam 1966 Foot Exam 1966 DTaP/Tdap/Td Vaccine (1 - Tdap) 1977 Hepatitis B Screening 1984 Regular Well Visit/Exam 18-64 1984 Pneumococcal vaccine <65 (1 of 2 - PCV) 1985 Lipid Panel 11/11/2020 11/12/2019, 03/09, 03/06/2017, Additional history exists Covid-19 Vaccine (2023-08 5 season) 2024 05/25/2021, 11/03/2020, 10/06/2020 Hemoglobin A1C 03/28/2025 09/25/2024, 05/0 12/2019, 03/21/2019, Additional history exists Breast Cancer Screening-Mammogram 04/30/2025 024, 07/14/2021 eGFR 10/01/2025 10/01/2024, 09/07, 10/01/2024, Additional history exists Influenza Vaccine Completed 04/05/2024, , 05/03/2020, Additional history exists Zoster Vaccine Completed 04/05/2024, 12/05/2023 Medical Devices Implanted Type Area Cultured [employer] Maker Device Identifier Shelf Expiration Date Model / Serial / Lot [employer] Angio-Seal Vip 6fr Closere Device [id number] - [id number] Implanted:Qty: 1 on 02/21/2023 by Neno Carvajal MD at [facility] [employer] 09/06/2023 [id number] / / [id number] Procedures Procedure Name Priority Date/Time Associated Diagnosis [...] DEVICE Routine 09/30/2024 9 :[address] AN PROCEDURE PLACEHOLDER Routine 09/30/2024 5:42 PM CDT POCT GLUCOSE DEVICE Routine 09/30/2024 5 :02 PM CDT SURGICAL PATHOLOGY Routine 09/30/2024 3: 30 PM CDT Thyroid cancer (HCC) POCT GLUCOSE DEVICE Routine 09/30/2024 2 :[address] AN PROCEDURE PLACEHOLDER Routine 09/30/2024 2:[address] AN ELECTIVE ENDOTRACHEAL AIRWAY Routine 09/30/2024 2:00 PM CDT DISSECTION NECK - BILATERAL 09/30/2024 1:21 PM CDT Thyroid cancer (HCC) Case Notes 09/18@1317: Sent case msg to [employer] to see if she is waiting on block release. SR Special Needs NIMs THYROIDECTOMY - TOTAL 09/30/2024 1:21 PM CDT Thyroid cancer (HCC) Case Notes 09/18@1317: Sent case msg to [employer] to see if she is waiting on [...] Read Routine (OP Routine) 09/10/2024 1:10 PM CLINIC DIRECTOR Thyroid cancer (HCC) NM THYROGEN INJECTION Schedule Routine, Read Routine (OP Routine) 09/09/2024 9:33 AM CLINIC DIRECTOR Thyroid cancer (HCC) TSH Routine 09/09/2024 8:38 AM CLINIC DIRECTOR Thyroid cancer (HCC) NM THYROGEN INJECTION Schedule Routine, Read Routine (OP Routine) 09/08/2024 11:49 AM CLINIC DIRECTOR Thyroid cancer (HCC) CT CHEST W CONTRAST Schedule Routine, Read Routine (OP Routine) 08/26/2024 1:06 PM CLINIC DIRECTOR Thyroid nodule CT SOFT TISSUE NECK W CONTRAST Schedule Routine, Read Routine (OP Routine) 08/26/2024 1:06 PM CLINIC DIRECTOR Thyroid nodule US GUIDED THYROID FINE NEEDLE ASPIRATION 1ST LESION Routine 08/26/2024 12:10 PM CLINIC DIRECTOR Thyroid nodule CYTOLOGY Routine 08/26/2024 12:00 AM CLINIC DIRECTOR Thyroid nodule NEURO CT OUTSIDE CONSULT Routine 08/22/2024 4:23 PM CLINIC DIRECTOR Diagnosis unknown NEURO CT OUTSIDE CONSULT Routine 08/22/2024 3:59 PM CLINIC DIRECTOR Diagnosis unknown EGFR Routine 08/22/2024 2:38 PM CLINIC DIRECTOR Thyroid nodule CBC WITHOUT DIFFERENTIAL Routine 08/22/2024 2:38 PM CLINIC DIRECTOR Thyroid nodule COMPREHENSIVE METABOLIC PANEL Routine 08/22/2024 2:38 PM CLINIC DIRECTOR Thyroid nodule PROTIME-INR Routine 08/22/2024 2:38 PM CLINIC DIRECTOR Thyroid nodule Hx of thyroid nodule TSH Routine 08/22/2024 2:38 PM CLINIC DIRECTOR Thyroid nodule Hx of thyroid nodule US THYROID Schedule Routine, Read Routine (OP Routine) 08/22/2024 9:59 AM CLINIC DIRECTOR Thyroid nodule SCREENING MAMMOGRAM BILATERAL W BOB Schedule Routine, Read Routine (OP Routine) 07/14/2021 8:39 AM CLINIC DIRECTOR Encounter for screening mammogram for malignant neoplasm [...] DEVICE Fin al Result Performing Organization Address City/[facility]/ZIP Co de Phone Number [facility] Department [place] [address] * POCT glucose (10/02/2024 7:26 AM CDT) Glucose, POC 97 70 - 199 mg/dL Blood 10/02/2024 7:26 AM CDT 10/02/2024 7:26 AM CDT us Josie Clarke MD LAB POCT ORDERABLES - DEVICE Fin al Result Performing Organization Address City/[facility] Co de Phone Number [facility] Department [place] [place] [address] * (ABNORMAL) eGFR (10/01/2024 10:14 PM CDT) [...] ORDERABLES Final Resul t Performing Organization Address City/[facility]/ZIP Co de Phone Number [facility] Department [place] [address] * PTH (10/01/2024 10:14 PM CDT) Pathologist [facility] PTH 15 15 - 65 pg/mL Blood 10/01/2024 10:1 4 PM CDT 10/01/2024 10:54 PM CDT us Josie Clarke MD LAB BLOOD ORDERABLES Final Resul t Performing Organization Address [facility] Co de Phone Number [facility] [place] [address] * (ABNORMAL) Basic metabolic panel (10/01/2024 10:14 PM CDT) Pathologist [facility] Sodium 142 135 - 145 mmol/L Potassium, pl 4.1 3.3 - 4.9 mmol/L [facility] Chloride 110 97 - 110 mmol/L [facility] CO2 24 22 - 32 mmol/L [facility] Anion gap 8 2 - 15 mmol/L [facility] BUN 32(H) 6 - 25 mg/dL [facility] Creatinine 1.45(H) 0.60 - 1.10 mg/dL [facility] Glucose 149 70 - 199 mg/dL [facility] Comment: Interpretive Data Fasting glucose >/= 126 [...] 2022. Calcium 7.8(L) 8.5 - 10.3 mg/dL [facility] Blood 10/01/2024 10:1 4 PM CDT 10/01/2024 10:54 PM CDT us Josie Clarke MD LAB BLOOD ORDERABLES Final Resul t Performing Organization Address [facility] Co de Phone Number [facility] [place] [address] * POCT glucose (10/01/2024 7:38 PM CDT) Glucose, POC 143 70 - 199 mg/dL Blood 10/01/2024 7:38 PM CDT 10/01/2024 7:38 PM CDT us Josie Clarke MD LAB POCT ORDERABLES - DEVICE Fin al Result Performing Organization Address [facility] Co de Phone Number [facility] Department [place] [address] * POCT glucose (10/01/2024 5:30 PM CDT) Glucose, POC 160 70 - 199 mg/dL Blood 10/01/2024 5:30 PM CDT 10/01/2024 5:30 PM CDT us Josie Clarke MD LAB POCT ORDERABLES - DEVICE Fin al Result Performing Organization Address [facility] de Phone Number [facility] Department [place] [address] * (ABNORMAL) eGFR (10/01/2024 1:15 PM CDT) [...] ORDERABLES Final Resul t Performing Organization Address City/[facility]/ZIP Co de Phone Number [facility] [place] [address] * (ABNORMAL) Calcium, ionized (10/01/2024 1:15 PM CDT) Calcium, Ionized 4.49(L) 4.50 - 5.10 mg/dL Blood 10/01/2024 1:15 PM CDT 10/01/2024 1:56 PM CDT us Josie Clarke MD LAB BLOOD ORDERABLES Final Resul t [facility] [place] [address] * Vitamin D 25 hydroxy (10/01/2024 1:15 PM CDT) [facility] Vitamin D 25-OH 33 30 - 80 ng/mL Blood 10/01/2024 1:15 PM CDT 10/01/2024 1:59 PM CDT us Josie Clarke MD LAB BLOOD ORDERABLES Final Resul t Performing Organization Address City/[facility] Co de Phone Number [facility] [place] [address] * PTH (10/01/2024 1:15 PM CDT) [facility] PTH 18 15 - 65 pg/mL Blood 10/01/2024 1:15 PM CDT 10/01/2024 1:59 PM CDT us Josie Clarke MD LAB BLOOD ORDERABLES Final Resul t Performing Organization Address [facility] de Phone Number [facility] [place] [address] * Vitamin B12 (10/01/2024 1:15 PM CDT) [facility] Vitamin B12 399 230 - 1,250 pg/mL Blood 10/01/2024 1:15 PM CDT 10/01/2024 1:59 PM CDT us Josie Clarke MD LAB BLOOD ORDERABLES Final Resul t Performing Organization Address [facility] [place] [address] * (ABNORMAL) Basic metabolic panel (10/01/2024 1:15 PM CDT) [facility] Sodium 141 135 - 145 mmol/L Potassium, pl 3.9 3.3 - 4.9 mmol/L [facility] Chloride 105 97 - 110 mmol/L [facility] CO2 25 22 - 32 mmol/L [facility] Anion gap 11 2 - 15 mmol/L [facility] BUN 26(H) 6 - 25 mg/dL [facility] Creatinine 1.33(H) 0.60 - 1.10 mg/dL [facility] Glucose 156 70 - 199 mg/dL [facility] Comment: Interpretive Data Fasting glucose >/= 126 [...] 2022. Calcium 8.3(L) 8.5 - 10.3 mg/dL [facility] Blood 10/01/2024 1:15 PM CDT 10/01/2024 1:59 PM CDT us Josie Clarke MD LAB BLOOD ORDERABLES Final Resul t [facility] Department [place] [address] * (ABNORMAL) POCT glucose (10/01/2024 12:28 PM CDT) [facility] Signature Glucose, POC 210(H) 70 - 199 mg/dL Blood 10/01/2024 12:2 8 PM CDT 10/01/2024 12:28 PM CDT us Josie Clarke MD LAB POCT ORDERABLES - DEVICE Fin al Result Performing Organization Address City/[facility]/ZIP Co de Phone Number [facility] Department [place] [address] * POCT glucose (10/01/2024 8:26 AM CDT) Glucose, POC 167 70 - 199 mg/dL Blood 10/01/2024 8:26 AM CDT 10/01/2024 8:26 AM CDT us Josie Clarke MD LAB POCT ORDERABLES - DEVICE Fin al Result Performing Organization Address City/[facility] Co de Phone Number [facility] [place] [address] * (ABNORMAL) eGFR (10/01/2024 6:03 AM CDT) [facility] eGFR 47(L) >=60 mL/min/1. 73 m2 Comment: [...] ORDERABLES Final Resul t Performing Organization Address City/[facility]/ZIP Co de Phone Number GIO [facility] [place] [address] * (ABNORMAL) Calcium, ionized (10/01/2024 6:03 AM CDT) Pathologist [facility] Calcium, Ionized 4.21(L) 4.50 - 5.10 mg/dL Blood 10/01/2024 6:03 AM CDT 10/01/2024 6:17 AM CDT us Josie Clarke MD LAB BLOOD ORDERABLES Final Resul t Performing Organization Address City/[facility] Co de Phone Number [facility] [place] [address] * (ABNORMAL) PTH (10/01/2024 6:03 AM CDT) [facility] PTH 8(L) 15 - 65 pg/mL Blood 10/01/2024 6:03 AM CDT 10/01/2024 6:18 AM CDT us Josie Clarke MD LAB BLOOD ORDERABLES Final Resul t Performing Organization Address [facility] de Phone Number [facility] [place] [address] * (ABNORMAL) Basic metabolic panel (10/01/2024 6:03 AM CDT) [facility] Sodium 141 135 - 145 mmol/L Potassium, pl 4.6 3.3 - 4.9 mmol/L [facility] Chloride 108 97 - 110 mmol/L [facility] CO2 25 22 - 32 mmol/L [facility] Anion gap 8 2 - 15 mmol/L [facility] BUN 28(H) 6 - 25 mg/dL [facility] Creatinine 1.32(H) 0.60 - 1.10 mg/dL [facility] Glucose 143 70 - 199 mg/dL [facility] Comment: Interpretive Data Fasting glucose >/= 126 [...] 2022. Calcium 8.4(L) 8.5 - 10.3 mg/dL [facility] Blood 10/01/2024 6:03 AM CDT 10/01/2024 6:17 AM CDT Narrative [facility] - 10/01/2024 6:39 AM CDT Begin after renal function panel us Josie Clarke MD LAB BLOOD ORDERABLES Final Resul t [facility] Department [place] [address] * (ABNORMAL) POCT glucose (09/30/2024 11:20 PM CDT) Glucose, POC 250(H) 70 - 199 mg/dL Blood 09/30/2024 11:2 0 PM CDT 09/30/2024 11:20 PM CDT us Josie Clarke MD LAB POCT ORDERABLES - DEVICE Fin al Result Performing Organization Address City/[facility] Co de Phone Number [facility] Department [place] [address] * (ABNORMAL) eGFR (09/30/2024 11:14 PM CDT) [...] ORDERABLES Final Resul t Performing Organization Address City/[facility] Co de Phone Number [facility] [place] [address] * (ABNORMAL) Calcium, ionized (09/30/2024 11:14 PM CDT) Pathologist [facility] Calcium, Ionized 4.35(L) 4.50 - 5.10 mg/dL Blood 09/30/2024 11:1 4 PM CDT 09/30/2024 11:49 PM CDT us Josie Clarke MD LAB BLOOD ORDERABLES Final Resul t Performing Organization Address [facility] de Phone Number [facility] Department [place] [address] * (ABNORMAL) PTH (09/30/2024 11:14 PM CDT) Pathologist [facility] PTH 11(L) 15 - 65 pg/mL Blood 09/30/2024 11:1 4 PM CDT 10/01/2024 1:11 AM CDT us Josie Clarke MD LAB BLOOD ORDERABLES Final Resul t Performing Organization Address [facility] Co de Phone Number [facility] Department [place] [address] * (ABNORMAL) Basic metabolic panel (09/30/2024 11:14 PM CDT) Sodium 140 135 - 145 mmol/L Potassium, pl 4.4 3.3 - 4.9 mmol/L [facility] Chloride 107 97 - 110 mmol/L [facility] CO2 26 22 - 32 mmol/L [facility] Anion gap 7 2 - 15 mmol/L [facility] BUN 27(H) 6 - 25 mg/dL [facility] Creatinine 1.22(H) 0.60 - 1.10 mg/dL [facility] Glucose 238(H) 70 - 199 mg/dL [facility] Comment: Interpretive Data Fasting glucose >/= 126 [...] 2022. Calcium 8.2(L) 8.5 - 10.3 mg/dL [facility] Blood 09/30/2024 11:1 4 PM CDT 09/30/2024 11:53 PM CDT us Josie Clarke MD LAB BLOOD ORDERABLES Final Resul t Performing Organization Address [facility]/ZIP Co de Phone Number [facility] Department [place] [address] * (ABNORMAL) POCT glucose (09/30/2024 9:15 PM CDT) Glucose, POC 288(H) 70 - 199 mg/dL Blood 09/30/2024 9:15 PM CDT 09/30/2024 9:15 PM CDT us Josie Clarke MD LAB POCT ORDERABLES - DEVICE Fin al Result Performing Organization Address [facility] Co de Phone Number [facility] Department [place] [address] * CT AN PROCEDURE PLACEHOLDER (09/30/2024 5:42 PM CDT) Narrative Melissa Koch CRNA - 09/30/2024 5:42 PM CDT Melissa Koch CRNA 09/30/2024 5:42 PM Peripheral IV Catheter Patient location: OR Staff: Placed by: MARKOS: Melissa Koch CRNA Preprocedure prep: Prep solution: [...] DEVICE Fin al Result Performing Organization Address City/State/[facility] Co de Phone Number GIO [facility] Department [place] [address] * Surgical pathology (09/30/2024 3:30 PM CDT) [...] (Thyroid) 09/30/2024 6:00 PM CDT Narrative PATHOLOGY [facility] - 10/06/2024 11:40 AM CDT EPIC results best viewed via link to PDF [facility] [place] [address] Note to Patients: This report may contain [...] Gender: F : 1965 (Age: 59) Address: [address] [place], [place] [id number] Hospital #: [id number] Taken:09/30/2024 Received:10/01/2024 Reported: 10/06/2024 Patient Type: [facility] OP In Bed Service: Surgery Location: [place] [address] Physician(s): MD Romie Faulkner PA Natnael Beyene [...] carcinoma in one of one lymph node (1/1) - Largest focus: 0.8 cm - Positive [...] of encapsulated nodule at opposite end A4 Or Assistant sections of mass in relation to grossly uninvolved thyroid A5 Or Assistant sections of mass in relation to black inked margin in areas of putative positive margin A6 Additional sales donor recruitment representative sections of mass A7 One possible [...] submitted entirely [id number] Level three lymph node, sales donor recruitment representative sections of matted mass of lymph [...] described nodule losest approach to margins E5 Or Assistant sections of uninvolved thyroid Jar 0. F. [...] Surgical Pathology and Flow Cytometry Departments at [facility] as part of an ongoing quality systems manager program and in compliance with federally mandated [...] Surgical Pathology and Flow Cytometry Departments of [facility]. It has not been cleared or approved by the U. S. Food and Drug Administration. IMAGES AND SCANNED DOCUMENTS, IF INCLUDED, ONLY VIEWABLE IN PDF VERSION OF REPORT Josie Clarke MD LAB PATHOLOGY ORDERABLES Final R esult Performing Organization Address [facility] Co de Phone Number [facility] 3rd Floor [place], [place] [phone] * POCT glucose (09/30/2024 2:50 PM CDT) Glucose, POC 112 70 - 199 mg/dL Blood 09/30/2024 2:50 PM CDT 09/30/2024 2:50 PM CDT Josie Clarke MD LAB POCT ORDERABLES - DEVICE Fin al Result Performing Organization Address [facility] Co de Phone Number [facility] Department [place] [address] * CT AN ELECTIVE ENDOTRACHEAL AIRWAY, CT AN PROCEDURE PLACEHOLDER (09/30/2024 2:00 PM CDT) Narrative Melissa Koch CRNA - 09/30/2024 2:00 PM CDT Melissa Koch CRNA 09/30/2024 2:01 PM Airway Patient location: OR Urgency: elective Indications for airway management: anesthesia and airway protection Difficult airway: no Staff: Supervising provider: Joss Guillaume MD Placed by: OFFC SPEC: Laubert, Melissa Renita, OFFC SPEC Emergent airway documentation: Risks and benefits discussed: [...] tape and tegaderm Number of attempts: 1 Joss Guillaume MD ANESTHESIA ORDERABLES Final Result * POCT glucose (09/30/2024 12:36 PM CDT) Glucose, POC 95 70 - 199 mg/dL Blood 09/30/2024 12:3 6 PM CDT 09/30/2024 12:36 PM CDT us Josie Clarke MD LAB POCT ORDERABLES - DEVICE Fin al Result Performing Organization Address City/State/[facility] Co de Phone Number [facility] Department [place] [address] * US Soft Tissue Neck (09/30/2024 11:15 [...] by: Velia Dyson M.D. Josie Clarke MD [facility] PROCEDURES Final Result * TYPE AND SCREEN 14 DAY (09/25/2024 9:37 AM CDT) Salvador, indirect Negative ABO Rh A Positive [facility] Blood 09/25/2024 9:37 AM CDT 09/25/2024 11:15 AM CDT Narrative [facility] - 09/25/2024 12:04 PM CDT Is this test being ordered in advance for a procedure?->Yes Expected date of procedure:->09/30/24 Has the patient been transfused in the past 3 months?->No Has the patient been in the past 3 months?->No Sunshine Nieves NP LAB BLOOD BANK TEST ORDERAB LES Final Result Performing Organization Address [facility] [place] [address] * (ABNORMAL) POCT hemoglobin A1c (09/25/2024 8:23 AM CDT) [facility] Hgb A1C, POC 6.5(H) 4.0 - 5.6 % Est Average Gluc POC 140 mg/dL [facility] Comment: The ADA recommends reporting an estimated Average Glucose (eAG) with all Hemoglobin A1c results using the equation derived from a study of 507 normal and diabetic adults. Minority populations were underrepresented and children were not included. (Diabetes Care 31:5877-4849, 2008). The eAG is not equivalent to a fasting glucose. Blood 09/25/2024 8:23 AM CDT 09/25/2024 8:23 AM CDT Josie Clarke MD POINT OF CARE TEST ORDERABLES Fi nal Result Performing Organization Address [facility] [place] [address] * ECG 12 lead (09/25/2024 8:11 AM CDT) Pathologist [facility] Ventricular Rate EKG/Min 65 BPM [facility] Atrial Rate 65 BPM [facility] CT-Interval (MSEC) 160 ms [facility] QRS-Interval (MSEC) 96 ms [facility] QT-Interval (MSEC) 432 ms [facility] QTc 449 ms [facility] P [place] 23 degrees [facility] R [place] -15 degrees [facility] T [place] 14 degrees [facility] Diagnosis Normal sinus rhythm Normal ECG No previous ECGs available Confirmed by David Esquivel MD ([id number]) on 09/28/2024 8:03:24 AM [facility] 09/25/2024 8:11 AM CDT 09/28/2024 8:03 AM CDT us Sunshine Katie Nieves VOCAL MUSIC INSTRUCTOR ECG ORDERABLES Final Resul t [facility] * PET/CT FDG Skull to Thigh (09/10/2024 1:10 PM CLINIC DIRECTOR) Anatomical Region Laterality Modality N/A Positron Emissio n Tomography (PET) 09/10/2024 2:08 PM CLINIC DIRECTOR Impressions 09/10/2024 2:08 PM CLINIC DIRECTOR 1. Diffuse marked hypermetabolism throughout the thyroid [...] Marcia Uribe M.D. Narrative 09/10/2024 2:08 PM CLINIC DIRECTOR EXAMINATION: TUMOR FDG-PET/CT IMAGING DATE OF STUDY: 09/10/2024 SCANNER: [facility] N PET Vision (NV1). This is a [...] obtained. The study was interpreted on the [employer] workstation. The mean liver SUV (reported for supplier quality manager purposes) is 2.9. The total scanned area [...] FDG-PET/CT IMAGING DATE OF STUDY: 09/10/2024 SCANNER: [facility] [employer] (NV1). This is a high-resolution scanner, which [...] obtained. The study was interpreted on the [employer] workstation. The mean liver SUV (reported for supplier quality manager purposes) is 2.9. The total scanned area [...] * NM Thyrogen Injection (09/09/2024 9:33 AM CLINIC DIRECTOR) Narrative [facility] - 09/09/2024 9:33 AM CLINIC DIRECTOR This order does not require dictation. Please see encounter notes for further details. us Josie Clarke MD [facility] NM PROCEDURES Final Result [facility] * (ABNORMAL) TSH (09/09/2024 8:38 AM CLINIC DIRECTOR) Thyroid Stimulating Hormone 201.00(H) 0.30 - 4.20 mcIUnit/m L Blood 09/09/2024 8:38 AM CLINIC DIRECTOR 09/09/2024 9:50 AM CLINIC DIRECTOR us Josie Clarke MD LAB BLOOD ORDERABLES Final Resul t [facility] Department [place] [address] * NM Thyrogen Injection (09/08/2024 11:49 AM CLINIC DIRECTOR) Narrative [facility] - 09/08/2024 11:49 AM CLINIC DIRECTOR This order does not require dictation. Please see encounter notes for further details. us Josie Clarke MD IMG NM PROCEDURES Final Result [facility] * CT Chest W Contrast (08/26/2024 1:06 PM CLINIC DIRECTOR) Anatomical Region Laterality Modality Body N/A Computed Tomogra phy 08/26/2024 2:08 PM CLINIC DIRECTOR Impressions 08/26/2024 3:08 PM CLINIC DIRECTOR 1. Right thyroid nodules better evaluated on [...] Arsenio Nesbitt M.D. Narrative 08/26/2024 3:08 PM CLINIC DIRECTOR EXAMINATION: Computed tomography of the chest with [...] Soft Tissue W Contrast (08/26/2024 1:06 PM CLINIC DIRECTOR) Anatomical Region Laterality Modality Head and Neck N/A Computed Tomogra phy 08/26/2024 4:00 PM CLINIC DIRECTOR Impressions 08/26/2024 4:09 PM CLINIC DIRECTOR 1. Multiple heterogeneously attenuating nodules within the [...] Sifuentes MD, PhD Narrative 08/26/2024 4:09 PM CLINIC DIRECTOR EXAMINATION: CT of the neck with contrast [...] are normal. The limited view of the [place] is unremarkable. The visualized portions [...] are normal. The limited view of the [place] is unremarkable. The visualized portions [...] Needle Aspiration 1st Lesion (08/26/2024 12:10 PM CLINIC DIRECTOR) Anatomical Region Laterality Modality Thyroid N/A Ultrasound 08/26/2024 12:1 5 PM CLINIC DIRECTOR Impressions 08/26/2024 12:15 PM CLINIC DIRECTOR 1. Successful thyroid biopsy of the high suspicion within the right mid thyroid. 2. Successful thyroid biopsy of the high suspicion within the left mid thyroid. The radiology attending physician has personally reviewed this study, and had reviewed and/or edited this written report and agrees with it. Electronically signed by: CAROLYN Carbajal Narrative 08/26/2024 12:15 PM CLINIC DIRECTOR EXAMINATION: ULTRASOUND-GUIDED THYROID FINE NEEDLE ASPIRATION HISTORY: [...] fine needle aspirates were handed to the order filler present during the procedure. Please refer to the dictated cytology report for final interpretation. The patient's skin was cleaned and dressed. The patient tolerated the procedure well without immediate complication. CAROLYN Carbajal, was present from the beginning to the end of the procedure. CAROLYN Carbajal performed the biopsy. Dr. Lew Melgar was present and participated in the procedure. Dr. Lew Melgar (director of residential services) personally participated in sonographic imaging of this [...] fine needle aspirates were handed to the order filler present during the procedure. Please refer to the dictated cytology report for final interpretation. The patient's skin was cleaned and dressed. The patient tolerated the procedure well without immediate complication. CAROLYN Carbajal, was present from the beginning to the end of the procedure. CAROLYN Carbajal performed the biopsy. Dr. Lew Melgar was present and participated in the procedure. Dr. Lew Melgar (director of residential services) personally participated in sonographic imaging of this patient. IMPRESSION: 1. Successful thyroid biopsy of the high suspicion within the right mid thyroid. 2. Successful thyroid biopsy of the high suspicion within the left mid thyroid. The radiology attending physician has personally reviewed this study, and had reviewed and/or edited this written report and agrees with it. Electronically signed by: CAROLYN Carbajal Josie Clarke MD [facility] US PROCEDURES Final Result * Cytology (08/26/2024 12:00 AM CLINIC DIRECTOR) Fine needle aspirate (Thyroid Gland (Cytology)) 08/26/2024 11:12 AM CLINIC DIRECTOR Narrative PATHOLOGY [facility] - 08/28/2024 2:00 PM CLINIC DIRECTOR EPIC results best viewed via link to PDF [facility] [place] [address] Note to Patients: This report may contain [...] Gender: F : 1965 (Age: 58) Address: [address] [place], [place] [phone] Hospital #: [id number] Taken:08/26/2024 Received:08/26/2024 Reported: 08/28/2024 Patient Type: [facility] Ancillary Service: Radiology Location: Physician(s): Fany Carrillo PA-C Justin Tyler Dumrongkulraksa, MD FINAL DIAGNOSIS A. Thyroid, right middle lobe, ultrasound-guided fine needle aspiration: - Papillary thyroid carcinoma B. Thyroid, left middle lobe, ultrasound-guided fine needle aspiration: - Suspicious for papillary thyroid carcinoma Comments This result was flagged as significant and was sent to Dr. Josie Clarke via email on 08/28/2024. Reason(s): To [...] M.D. 08/28/2024 14:00:04 Brennan RdzVioleta Hardy MS, CT(ASCP)PA Gross Description A. Thyroid, right middle lobe, [...] performed, if indicated. Aspirated by clinician. (rm) Clinical Diagnosis and History Thyroid nodule Addenda/Procedures [...] Surgical Pathology and Flow Cytometry Departments at [facility] as part of an ongoing quality systems manager program and in compliance with federally mandated [...] Surgical Pathology and Flow Cytometry Departments of [facility]. It has not been cleared or approved by the U. S. Food and Drug Administration. Josie Clarke MD LAB CYTOLOGY ORDERABLES Final Re sult PATHOLOGY [facility] 3rd Floor [place], [place] [phone] * Neuro CT Outside Consult (08/22/2024 4:23 PM CLINIC DIRECTOR) Anatomical Region Laterality Modality N/A Computed Tomogra phy 08/22/2024 4:41 PM CLINIC DIRECTOR Impressions 08/22/2024 4:45 PM CLINIC DIRECTOR No acute intracranial process. The findings, conclusions and recommendations within this report do not replace the initial findings, conclusions and recommendations made at the facility where the study was performed based upon the imaging and clinical condition at that time. Comparison with the prior report and clinical history is necessary. The provided images may or may not represent the galena source data set and thus may contain changes that may lower the accuracy of this second-opinion interpretation. Dictated by: Campbell De Luna M.D. The radiology attending physician has personally reviewed this study, and had reviewed and/or edited this written report and agrees with it. Electronically signed by: Luc Linares M.D. Ph.D. Narrative 08/22/2024 4:45 PM CLINIC DIRECTOR EXAMINATION: RADIOLOGY CONSULTATION ON OUTSIDE IMAGING STUDY STUDY INITIALLY PERFORMED: 06/26/2024 at [facility]. TYPE OF STUDY: Multiple CT images of [...] IMAGING STUDY STUDY INITIALLY PERFORMED: 06/26/2024 at [facility]. TYPE OF STUDY: Multiple CT images of [...] images may or may not represent the galena source data set and thus may contain changes that may lower the accuracy of this second-opinion interpretation. Dictated by: Campbell De Luna M.D. The radiology attending physician has personally reviewed this study, and had reviewed and/or edited this written report and agrees with it. Electronically signed by: Luc Linares M.D. Ph.D. Josie Clarke MD [facility] CT PROCEDURES Final Result * Neuro CT Outside Consult (08/22/2024 3:59 PM CLINIC DIRECTOR) Anatomical Region Laterality Modality N/A Computed Tomogra phy 08/22/2024 4:15 PM CLINIC DIRECTOR Impressions 08/22/2024 4:15 PM CLINIC DIRECTOR This study was initially nominated as a consult on outside images via Outside Image Sharing Service. However, a consult was not performed because no images are associated with this accession number. Accordingly, there will be no separate report of this study generated by a [facility] Radiologist. Electronically signed by: Tessy Damico M.D. Narrative 08/22/2024 4:15 PM CLINIC DIRECTOR EXAMINATION: CHANGE CONSULT ON OUTSIDE IMAGES TO [...] report of this study generated by a [facility] Radiologist. Electronically signed by: Tessy Damico M.D. Josie Clarke MD [facility] CT PROCEDURES Final Result * (ABNORMAL) eGFR (08/22/2024 2:38 PM CLINIC DIRECTOR) eGFR 38(L) >=60 mL/min/1. 73 m2 Comment: [...] last reviewed 2021. Blood 08/22/2024 2:38 PM CLINIC DIRECTOR 08/22/2024 2:43 PM CLINIC DIRECTOR us Josie Clarke MD LAB BLOOD ORDERABLES Final Resul t Performing Organization Address [facility] de Phone Number [facility] [place] [address] * Protime-INR (08/22/2024 2:38 PM CLINIC DIRECTOR) PT 11.9 9.7 - 13.0 sec INR 1.10 0.90 - 1.20 [facility] Comment: Interpretive data Oral anticoagulant therapeutic ranges: Venous thromboembolism prophylaxis or treatment: 2.0-3.0 CARDIOLOGY Standard range: 2.0-3.0 High-intensity range: 2.5-3.5 Refer to indication-specific guidelines for appropriate target ranges for prosthetic heart valve replacement. Current interpretive data was last revised on 2019. Blood 08/22/2024 2:38 PM CLINIC DIRECTOR 08/22/2024 3:20 PM CLINIC DIRECTOR us Josie Clarke MD LAB BLOOD ORDERABLES Final Resul t Performing Organization Address [facility] [place] [address] * (ABNORMAL) CBC without differential (08/22/2024 2:38 PM CLINIC DIRECTOR) WBC 4.9 3.8 - 9.9 K/cumm Comment:Testing performed by : [facility], [address] [place] [id number] Hgb 11.8(L) 11.9 - 15.5 g/dL [facility] Comment:Testing performed by : [facility], [address] [place] [address] Hct 36.4 35.6 - 45.5 % GIO JEFFERSON Comment:Testing performed by : [facility], [address] [place] [address] Plt 226 150 - 400 K/cumm GIO JEFFERSON Comment:Testing performed by : [facility], [address] [place] [address] MPV 8.1 6.8 - 10.4 fL GIO JEFFERSON Comment:Testing performed by : [facility], [address] [place] [address] RBC 4.04 3.90 - 5.20 M/cumm GIO JEFFERSON Comment:Testing performed by : [facility], [address] [place] [address] MCV 90.1 81.3 - 96.4 fL GIO JEFFERSON Comment:Testing performed by : [facility], [address] [place] [address] MCH 29.2 27.1 - 33.3 pg GIO [facility] Comment:Testing performed by : [facility], [address] [place] [address] MCHC 32.4 32.3 - 35.7 g/dL GIO [facility] Comment:Testing performed by : [facility], [address] [place] [address] RDW CV 13.9 11.1 - 14.9 % GIO [facility] Comment:Testing performed by : [facility], [address] [place] [address] Blood 08/22/2024 2:38 PM CLINIC DIRECTOR 08/22/2024 2:42 PM CLINIC DIRECTOR us Josie Clarke MD LAB BLOOD ORDERABLES Final Resul t GIO JEFFERSON [facility] Department [place] [address] * TSH (08/22/2024 2:38 PM CLINIC DIRECTOR) Thyroid Stimulating Hormone 0.72 0.30 - 4.20 mcIUnit/mL Blood 08/22/2024 2:38 PM CLINIC DIRECTOR 08/22/2024 2:43 PM CLINIC DIRECTOR us Josie Clarke MD LAB BLOOD ORDERABLES Final Resul t [facility] Department [place] [address] * (ABNORMAL) Comprehensive metabolic panel (08/22/2024 2:38 PM CLINIC DIRECTOR) Sodium 141 135 - 145 mmol/L Potassium, pl 3.4 3.3 - 4.9 mmol/L [facility] Chloride 108 97 - 110 mmol/L [facility] CO2 26 22 - 32 mmol/L [facility] Anion gap 7 2 - 15 mmol/L [facility] BUN 26(H) 6 - 25 mg/dL [facility] Creatinine 1.57(H) 0.60 - 1.10 mg/dL [facility] Glucose 103 70 - 199 mg/dL [facility] Comment: Interpretive Data Fasting glucose >/= 126 [...] 2022. Calcium 8.9 8.5 - 10.3 mg/dL [facility] Bilirubin, total 0.6 0.1 - 1.2 mg/dL [facility] Protein, pl 7.2 6.5 - 8.5 g/dL [facility] Albumin 3.8 3.5 - 5.0 g/dL [facility] Alk phos 192(H) 40 - 130 Units/L [facility] ALT 8 7 - 45 Units/L [facility] AST 21 10 - 45 Units/L [facility] Blood 08/22/2024 2:38 PM CLINIC DIRECTOR 08/22/2024 2:43 PM CLINIC DIRECTOR us Josie Clarke MD LAB BLOOD ORDERABLES Final Resul t GIO [facility] Department [place] [address] * US Thyroid (08/22/2024 9:59 AM CLINIC DIRECTOR) Anatomical Region Laterality Modality Head and Neck N/A Ultrasound 08/22/2024 10:2 4 AM CLINIC DIRECTOR Impressions 08/22/2024 12:53 PM CLINIC DIRECTOR 1. Findings suspicious for multifocal papillary thyroid [...] Nigel Ruiz M.D. Narrative 08/22/2024 12:53 PM CLINIC DIRECTOR EXAMINATION: THYROID SONOGRAM HISTORY: 58-year-old woman undergoing [...] Mammogram Bilateral W Bob (07/14/2021 8:39 AM CLINIC DIRECTOR) Anatomical Region Laterality Modality Breast Bilateral Mammography 07/14/2021 9:28 AM CLINIC DIRECTOR Impressions 07/14/2021 9:28 AM CLINIC DIRECTOR There is no mammographic evidence of malignancy. Routine screening mammography is recommended in 1 year. BI-RADS: 1 - Negative. The patient will be entered into a reminder system with a target due date of 1 year for her next mammogram. Electronically signed by: Williams Cesar M.D. Narrative 07/14/2021 9:28 AM CLINIC DIRECTOR EXAMINATION: SCREENING MAMMOGRAM BILATERAL W BOB ORDERING [...] LEON LAB BLOOD ORDERABLES Final Re sult [facility]) 1 [facility] [place] [employer] [place] [address] from Last 3 Months or Most Recently Relevant to Health Maintenance Insurance MEDICARE ADVANTAGE [facility] MEDICARE ADVANTAGE [employer] [facility] MEDICARE ADVANTAGE [facility] Address: [address] [address] [place] [address] [employer] Advance Directives For more information, please contact: [phone] * Full Code (Latest Code Status on File) Date Activated Date Inactivated Comments 09/30/2024 8:54 PM 10/02/2024 6:14 PM * Full Code Date Activated Date Inactivated Comments 02/21/2023 10:44 AM 02/21/2023 5:20 PM Care Teams Manager Shift Relationship Specialty Start Date End Date Romie Laboy PA [address] [place] [address] PCP - General 12/06/16
== END 2024-10-14 16:13 | disposition home or self-care (01) ==
LOC: CHSLAB 16:17
PROVIDERS: PCP Physician Assistant
DX: C73 Malignant neoplasm of thyroid gland (principal)
CPT/HCPCS: 36415; 80048

== ENCOUNTER 2025-02-19 15:57 | Outpatient (RCR) | payer MEDICARE, MEDICAID, SELFPAY ==
--- NOTE | 2025-02-09 10:17 | OPREHPOC ---
Outpatient Therapy Plan of Care This is a Multidisciplinary Plan of Care that may contain components documented by all disciplines (PT, OT, and ST.) PT Problem 1 PT Problem #1 Knowledge Deficit PT Goal 1 Goal / Goal Update Independent and compliant with HEP. Target Visit 4 Progress Met PT Problem 2 PT Problem #2 Impaired Strength PT Goal 1 Goal / Goal Update Pt to improve L hip strength to 4+/5. Pt to improve R hip strength to 4-/5. Pt to improve bilat knee flexion/extension strength to 5/5. Pt to improve bilat shoulder strength to 4+/5. Pt to improve gross cervical mm strength to 4+/5. Target Visit 22 Progress Not Met PT Problem 3 PT Problem #3 Impaired Functional Mobility PT Goal 1 Goal / Goal Update Pt to improve 5xSTS time to 25 seconds or less. - met during last bout of therapy, reassess for adherence Pt to improve 6MWT distance to 500ft without a rest break. -met during last bout of therapy, not met on 02/09/25 Target Visit 22 Progress Not Met PT Problem 4 PT Problem #4 Impaired Range of Motion PT Goal 1 Goal / Goal Update Pt to improve B cervical rotation to 60 deg to return to driving at PLOF -not met Pt to improve cervical extension AROM to 35 deg or better. Target Visit 22 Progress Not Met
--- NOTE | 2025-02-09 10:17 | PTOPPROG ---
Assessment and note entered by Jessica Lopez, PT Evaluation Information Assessment Status Progress ICD-10 Condition Codes (PT) Pain in right shoulder M25.511,Difficulty Walking R26.2,Weakness R53.1 Other ICD-10 Condition Codes ( M62.81 PT) Onset 10/06/24 Subjective Information Janeen enters the clinic ambulating with rollator. She has not been to PT in about a month due to a variety of reasons. 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 States the cancer is also in her lungs. She also reports she had a confirmed stroke on imaging which appears to be older and she does not know if the doctor will do anything to address that yet or not. She presents back to PT wanting to continue strengthening as well as addressing her neck and shoulder/pain tightness after radiation. She notes difficulty with turning her head to the R. She also reports she's continued to walk at home and perform LE exercises lying down. She also had a recent in the family. Assessment PT Clinical Summary Mrs. Woodward is presenting for skilled PT re- evaluation after a month break from therapy. She continues to demonstrate moderate weakness in both UE and LE, however more weakness on R side of the body than L likely due to previous stroke that was recently confirmed through imaging. She also demonstrates a reduction in her endurance since last bout of therapy and requires seated rest to complete 6MWT. Due to recent radiation she also demonstrates cervical AROM and mm strength. She will benefit from skilled PT intervention to address these deficits to improve function and quality of life. Plan of Care Interventions Gait Training,Hot Pack/Cold Pack,Manual Therapy, Neuro Re-education,Patient/Caregiver Education, Therapeutic Activities,Therapeutic Exercise,Self- Care/Home Management PT Services Indicated Yes Treatment Frequency and 2x/week for 6 additional visits Duration These treatments will address the objective and functional deficits as defined above. The patient will be advanced safely and appropriately in order for the patient to progress towards his/her prior level of function. Additional exercises will be introduced and as well as a comprehensive home exercise program upon discharge, if needed, ?to ensure carryover of functional gains achieved in the clinic. This treatment plan has been reviewed and agreement upon by the patient.
--- NOTE | 2025-03-17 17:25 | OPREHPOC ---
Outpatient Therapy Plan of Care This is a Multidisciplinary Plan of Care that may contain components documented by all disciplines (PT, OT, and ST.) PT Problem 1 PT Problem #1 Knowledge Deficit PT Goal 1 Goal / Goal Update Independent and compliant with HEP. Target Visit 4 Progress Met PT Problem 2 PT Problem #2 Impaired Strength PT Goal 1 Goal / Goal Update Pt to improve L hip strength to 4+/5. Pt to improve R hip strength to 4-/5. Pt to improve bilat knee flexion/extension strength to 5/5. Pt to improve bilat shoulder strength to 4+/5. Pt to improve gross cervical mm strength to 4+/5. Target Visit 22 Progress Not Met PT Problem 3 PT Problem #3 Impaired Functional Mobility PT Goal 1 Goal / Goal Update Pt to improve 5xSTS time to 25 seconds or less. - met Pt to improve 6MWT distance to 500ft without a rest break. -met Target Visit 22 Progress Met PT Problem 4 PT Problem #4 Impaired Range of Motion PT Goal 1 Goal / Goal Update Pt to improve B cervical rotation to 60 deg to return to driving at PLOF -not met Pt to improve cervical extension AROM to 35 deg or better. -met Target Visit 22 Progress Partially Met
--- NOTE | 2025-03-17 17:25 | PTOPDC ---
Assessment and note entered by Amie Leach, PT Evaluation Information Assessment Status Discharge ICD-10 Condition Codes (PT) Pain in right shoulder M25.511,Difficulty Walking R26.2,Weakness R53.1 Other ICD-10 Condition Codes ( M62.81 PT) Onset 10/06/24 Subjective Information Janeen Woodward reports she is about the same overall. She has noticed a small decrease in her shoulder and knee pain since she began taking CBD gummies. She is going to see her PCP on 03/25/25 and plans to talk to him about aquatic therapy. She continues to have difficulty showering, reaching behind her back, heavy cleaning, and walking long distances. Reported Pain Level Pain Score 5,5,0: Self Report Assessment PT Clinical Summary Mrs. Woodward has completed 22 skilled PT visits for weakness. She is reporting no overall change in her symptoms and notes she still has difficulty showering, reaching behind her back, heavy cleaning, and walking. She demonstrates decreased cervical and right shoulder AROM; decreased right > left shoulder, hip, and knee strength; decreased endurance; and altered gait. She has improved her 6 MWT distance but had to end the test at 4 mins an 48 seconds due to fatigue. She has also improved her 5 times sit to stand time and met her goal pertaining to it. She is independent in a home exercise program consisting of cervical and shoulder ROM as well as upper and lower body strengthening. She is being discharged from skilled PT due to lack of improvement. Plan of Care PT Services Indicated No
== END 2025-03-17 20:00 | disposition home or self-care (01) ==
LOC: CHSPT 15:57
PROVIDERS: PCP Physician Assistant; Visit Provider Physician Assistant
DX: M62.81 Muscle weakness (generalized) (principal); R26.2 Difficulty in walking, not elsewhere classified
CPT/HCPCS: 97110; 97530; 97750